=== PATIENT | female | born 1960 | race Two or more races ===

== ENCOUNTER 2020-09-17 13:14 | Outpatient (REF) | payer MEDICAID, SELFPAY ==
--- NOTE | 2020-09-17 13:25 | XR_ITS ---
EXAMINATION: XR KNEE, LEFT CLINICAL INFORMATION: Pain COMPARISON: Previous x-ray May 2017 TECHNIQUE: 2 of the left knee. FINDINGS: Bone alignment is normal. No fracture or dislocation is seen. Joint spaces are normal. There may be a joint effusion. IMPRESSION: Question joint effusion otherwise unremarkable exam.
== END 2020-09-17 13:15 | disposition home or self-care (01) ==
LOC: HO.XRAY 13:14
PROVIDERS: PCP Internal Medicine Geriatric Medicine; Visit Provider Internal Medicine Geriatric Medicine
DX: M25.562 Pain in left knee (principal)
CPT/HCPCS: 73560

== ENCOUNTER → 2020-11-05 09:08 | Outpatient (BNVA) | payer MEDICAID, SELFPAY | PROVIDERS: PCP Internal Medicine Geriatric Medicine; Referring Provider Internal Medicine Geriatric Medicine; Visit Provider Internal Medicine Gastroenterology | DX: Z76.89 Persons encountering health services in other specified circumstances (principal) ==

== ENCOUNTER → 2020-11-07 11:55 | Outpatient (BNVA) | payer MEDICAID, SELFPAY | PROVIDERS: PCP Internal Medicine Geriatric Medicine; Referring Provider Internal Medicine Geriatric Medicine; Visit Provider Internal Medicine | DX: Z76.89 Persons encountering health services in other specified circumstances (principal) ==

== ENCOUNTER 2020-11-09 12:10 | Outpatient (REF) | payer MEDICAID, SELFPAY ==
[2020-11-09 13:01] LABS: MANUAL DIFF FLAG NO
[2020-11-09 13:36] LABS: Basophils Percent Auto 0.7 % (0-2); Eosinophils Absolute Auto 0.2 X10*3/uL (0.0-0.4); Eosinophils Percent Auto 4.1 % (0-4); Hematocrit 41.4 % (37-47); Hemoglobin 12.9 g/dl (12.0-16.0); Imm Gran Abs Auto 0.02 X10*3/uL (0.00-0.03); Imm Gran Pct Auto 0.3 % (0.0-0.4); Lymphocytes Absolute Auto 1.7 X10*3/uL (1.2-4.9); Lymphocytes Percent Auto 29.4 % (20-40); Mean Corpuscular HGB Conc 31.2 g/dl (31.0-35.0); Mean Corpuscular Hemoglobin 28.1 pg (27.0-33.0); Mean Corpuscular Volume 90.2 fL (80-98); Mean Platelet Volume 10.8 fL (9.4-12.3); Monocytes Absolute Auto 0.4 X10*3/uL (0.1-1.2); Monocytes Percent Auto 7.2 % (2-11); Neutrophils Absolute Auto 3.4 X10*3/uL (2.0-8.3); Neutrophils Percent Auto 58.3 % (45-73); Platelet Count 212 X10*3/uL (160-400); Red Blood Count 4.59 X10*6/uL (4.20-5.50); Red Cell Distribution Width 13.6 % (11.0-16.0); White Blood Count 5.9 X10*3/uL (4.8-10.8)
[2020-11-09 13:40] LABS: Alanine Aminotransferase 25 U/L (0-31); Albumin Level 3.9 g/dL (3.5-5.0); Alkaline Phosphatase 93 U/L (39-117); Anion Gap 11 (12-20); Aspartate Amino Transferase 17 U/L (5-31); Bilirubin Total 0.3 mg/dL (0.0-1.0); Blood Urea Nitrogen 12 mg/dL (9-16); Calcium 8.5 mg/dL (8.4-10.2); Carbon Dioxide 28 mmol/L (22-29); Chloride 107 mmol/L (96-108); Estimated Glomerular Filt Rate > 60; Glucose Random 91 mg/dL (60-115); Potassium 4.3 mmol/l (3.3-5.1); Sodium 142 mmol/L (135-145); Total Protein 6.7 g/dL (6.5-8.0)
[2020-11-09 13:49] LABS: TSH reflex Free T4 0.61 mIU/mL (0.32-4.0)
[2020-11-09 17:57] LABS: Free T4 (Free Thyroxine) 0.97 ng/dL (0.71-1.85); Thyroid Stimulating Hormone 0.62 uIU/mL (0.32-4.0); Vitamin D 25-OH Total 24.9 ng/mL (>30)
[2020-11-14 06:58] LABS: Calcitonin <2 pg/mL (<=5)
== END 2020-11-09 12:11 | disposition home or self-care (01) ==
LOC: HO.LAB 12:10
PROVIDERS: PCP Internal Medicine Geriatric Medicine; Referring Provider Internal Medicine Gastroenterology; Visit Provider Internal Medicine
DX: E04.1 Nontoxic single thyroid nodule (principal); R10.13 Epigastric pain; E55.9 Vitamin D deficiency, unspecified
CPT/HCPCS: 36415; 80053; 82306; 82308; 84439; 84443; 85025

== ENCOUNTER → 2021-01-02 09:16 | Outpatient (BNVA) | payer MEDICAID, SELFPAY | PROVIDERS: PCP Internal Medicine Geriatric Medicine; Visit Provider Internal Medicine ==

== ENCOUNTER → 2021-03-08 09:00 | Outpatient (BNVA) | payer MEDICAID, SELFPAY | PROVIDERS: PCP Internal Medicine Geriatric Medicine; Visit Provider Internal Medicine Gastroenterology ==

== ENCOUNTER → 2021-03-25 13:08 | Outpatient (BNVA) | payer MEDICAID, SELFPAY | PROVIDERS: PCP Internal Medicine Geriatric Medicine; Visit Provider Surgery | DX: L72.0 Epidermal cyst (principal) | CPT/HCPCS: 99202 ==

== ENCOUNTER → 2021-03-26 10:45 | Outpatient (BNVA) | payer MEDICAID, SELFPAY | PROVIDERS: PCP Internal Medicine Geriatric Medicine; Visit Provider Student in an Organized Health Care Education/Training Program | DX: M79.7 Fibromyalgia (principal) | CPT/HCPCS: 99212 ==

== ENCOUNTER 2021-04-11 13:18 | Outpatient (REF) | payer MEDICAID, SELFPAY ==
[2021-04-11 13:19] VITALS: BP 119/60; PULSE 86; RESP 16; TEMP 36.4; O2SAT 100
[2021-04-11 13:21] VITALS: BMI 36.6
--- NOTE | 2021-04-11 13:46 | W.PM.OPN ---
Operative Note Operative Note Date of Service: 04/11/21 Narrative: Preop diagnosis: Epidermal inclusion, right thigh Postop diagnosis: Epidermal inclusion cyst right thigh Procedure: Excision of epidermal inclusion cyst, right thigh under local anesthesia Surgeon: Sunny Saldivar MD The patient is a 60 year female with a cystic induration on the right medial thigh consistent with an epidermal inclusion cyst. She understood the technique of excision under local anesthesia. She was aware of the risks, benefits, and alternatives She was brought to the minor procedure room and placed supine with the right thigh abducted to expose the area. The area of the cyst was prepped and draped. Lidocaine 1% was used for local anesthesia. An elliptical incision was made in the skin overlying this cystic induration using a blade 15. This was carried down through the full-thickness of the skin and subcutaneous fat to excise the entire cystic induration. There was note of a cystic capsule that well well defined. The cyst itself measured about 2 cm in diameter After complete excision, I closed the incision with full-thickness nylon 3-0 interrupted sutures. Dressings were applied The patient tolerated procedure well. There were no complications. Estimated blood loss was about 2 cc The patient was given discharge instructions.
--- NOTE | 2021-04-11 13:49 | MHC.SHP ---
Pre-Procedural Eval Section B Chief Complaint: Epidermal Cyst Allergies: Allergies Allergy/AdvReac Type Severity Reaction Status Date / Time ibuprofen [From MOTRIN] Allergy Severe SWELLING Verified 03/26/21 10:54 prednisone [PREDNISONE] Allergy Severe ANAPHYLAXIS Verified 03/26/21 10:54 aspirin [ASPIRIN] Allergy Intermediate SWELLING, Verified 03/26/21 10:54 anaphylaxis cortisone [CORTISONE] Allergy Intermediate SHAKING,HTN Verified 03/26/21 10:54 codeine Allergy Unknown anaphylaxis Verified 03/26/21 10:54 iodine Allergy Unknown anaphylaxis Verified 03/26/21 10:54 Plan I have reviewed the history and physical and performed a pertinent physical examination on my patient. No changes have occurred unless specified.
[2021-04-11 13:53] VITALS: BP 108/82; PULSE 72; RESP 16; O2SAT 98
== END 2021-04-11 13:19 | disposition home or self-care (01) ==
LOC: HO.MS 13:18
PROVIDERS: PCP Internal Medicine Geriatric Medicine; Visit Provider Surgery
PROC: (CPT 11402; principal; 2021-04-11 14:00)
DX: L72.0 Epidermal cyst (principal); M79.7 Fibromyalgia; E55.9 Vitamin D deficiency, unspecified; F17.210 Nicotine dependence, cigarettes, uncomplicated; Z79.899 Other long term (current) drug therapy; Z88.8 Allergy status to other drugs, medicaments and biological substances
CPT/HCPCS: 11402; 88304

== ENCOUNTER → 2021-04-22 09:58 | Outpatient (BNVA) | payer MEDICAID, SELFPAY | PROVIDERS: PCP Internal Medicine Geriatric Medicine; Visit Provider Surgery | DX: Z48.817 Encounter for surgical aftercare following surgery on the skin and subcutaneous tissue (principal); Z87.2 Personal history of diseases of the skin and subcutaneous tissue | CPT/HCPCS: 99212 ==

== ENCOUNTER 2021-04-26 09:43 | Outpatient (REF) | payer MEDICAID, SELFPAY ==
[2021-04-26 11:04] LABS: MANUAL DIFF FLAG NO
[2021-04-26 11:10] LABS: Basophils Percent Auto 0.7 % (0-2); Eosinophils Absolute Auto 0.1 X10*3/uL (0.0-0.4); Eosinophils Percent Auto 1.6 % (0-4); Hematocrit 41.6 % (37-47); Hemoglobin 13.2 g/dl (12.0-16.0); Imm Gran Abs Auto 0.02 X10*3/uL (0.00-0.03); Imm Gran Pct Auto 0.4 % (0.0-0.4); Lymphocytes Absolute Auto 1.5 X10*3/uL (1.2-4.9); Lymphocytes Percent Auto 26.6 % (20-40); Mean Corpuscular HGB Conc 31.7 g/dl (31.0-35.0); Mean Corpuscular Hemoglobin 28.3 pg (27.0-33.0); Mean Corpuscular Volume 89.1 fL (80-98); Mean Platelet Volume 10.5 fL (9.4-12.3); Monocytes Absolute Auto 0.4 X10*3/uL (0.1-1.2); Monocytes Percent Auto 6.6 % (2-11); Neutrophils Absolute Auto 3.5 X10*3/uL (2.0-8.3); Neutrophils Percent Auto 64.1 % (45-73); Platelet Count 209 X10*3/uL (160-400); Red Blood Count 4.67 X10*6/uL (4.20-5.50); Red Cell Distribution Width 13.7 % (11.0-16.0); White Blood Count 5.5 X10*3/uL (4.8-10.8)
[2021-04-26 12:06] LABS: Alanine Aminotransferase 27 U/L (0-31); Alkaline Phosphatase 94 U/L (39-117); Anion Gap 13 (12-20); Aspartate Amino Transferase 18 U/L (5-31); Bilirubin Total 0.3 mg/dL (0.0-1.0); Blood Urea Nitrogen 11 mg/dL (9-16); C Reactive Protein 1.06 mg/dL (< or = 0.50); Calcium 9.2 mg/dL (8.4-10.2); Carbon Dioxide 23 mmol/L (22-29); Chloride 108 mmol/L (96-108); Estimated Glomerular Filt Rate > 60; Glucose Random 92 mg/dL (60-115); Potassium 4.3 mmol/L (3.3-5.1); Sodium 140 mmol/L (135-145); Total Protein 6.9 g/dL (6.5-8.0)
[2021-04-26 12:27] LABS: Folate 5.3 ng/mL (> or = 4.0); Vitamin B12 454 pg/mL (200-900)
[2021-04-26 12:44] LABS: Vitamin D 25-OH Total 26.7 ng/mL (>30)
[2021-04-30 14:22] LABS: Vitamin K1 219 pg/mL (130-1500)
[2021-04-30 23:36] LABS: Histamine Plasma <1.5 ng/mL (< OR = 1.8)
[2021-05-01 01:37] LABS: Zinc 72 mcg/dL (60-130)
[2021-05-01 12:27] LABS: Beta-Gamma Tocopherol <1.0 mg/L (<=4.3)
[2021-05-01 14:27] LABS: Vitamin B5 (Pantothenic Acid) <40 ng/mL (<275)
[2021-05-01 20:52] LABS: Vitamin A 34 mcg/dL (38-98)
[2021-05-02 19:51] LABS: Vitamin C 0.8 mg/dL (0.3-2.7)
[2021-05-03 12:06] LABS: Nicotinamide 24 ng/mL; Vit B3 - Nicotinic Acid <20 ng/mL; Vitamin B6 3.6 ng/mL (2.1-21.7)
[2021-05-03 17:21] LABS: Trypsin 275.4 ng/mL (180.5-885.3)
== END 2021-04-26 09:44 | disposition home or self-care (01) ==
LOC: HO.LAB 09:43
PROVIDERS: PCP Internal Medicine Geriatric Medicine; Visit Provider Internal Medicine Gastroenterology
DX: G89.29 Other chronic pain (principal); R10.11 Right upper quadrant pain; K75.81 Nonalcoholic steatohepatitis (NASH)
CPT/HCPCS: 36415; 80053; 82180; 82306; 82607; 82746; 82785; 83088; 83519; 84207; 84446; 84590; 84591; 84597; 84630; 85025; 86003; 86140; 99212

== ENCOUNTER 2021-06-05 08:50 | Day surgery (SDC) | payer MEDICAID, SELFPAY ==
[2021-05-29 13:53] VITALS: BMI 36.6
--- NOTE | 2021-06-04 10:11 | P.CONAN_ITS ---
Documented by User: Anna Martines 06/04/21 10:12 HPI - Anesthesia Eval Consult details Narrative: 60yo F for Colonoscopy chronic prn opioids PMFSH Active Problems Active Problems: All Active Problems (Updated 05/29/21 @ 13:50 by Izzy Arenas) Thyroid cyst (Acute) Epigastric abdominal pain (Acute) Chronic RUQ pain (Acute) Fibromyalgia (Acute) Epidermal cyst (Acute) Vitamin D deficiency (Acute) Thyroid nodule (Acute) Past Medical History Medical History (Updated 05/29/21 @ 13:50 by Izzy Arenas) Asthma Depression Epidermal cyst Fibromyalgia GERD (gastroesophageal reflux disease) History of fatty infiltration of liver History of panic attacks Hx of migraine headaches Thyroid nodule Vitamin D deficiency Family History Family History Father No problems noted. Mother Ovarian cancer Sister Thyroid nodule Hypothyroidism Sister Hypothyroidism Thyroid nodule Brother Cancer of unknown origin Surgical History Surgical History (Updated 05/29/21 @ 13:52 by Izzy Arenas) H/O shoulder surgery History of back surgery History of colonoscopy History of esophagogastroduodenoscopy (EGD) History of removal of cyst Hx laparoscopic cholecystectomy Hx of dilation and curettage Hx of tubal ligation Social History Social History Household Members: Family Alcohol intake: never Patient Tobacco Use Status: Current everyday Tobacco user Tobacco use type: Cigarette Cigarette Packs Per Day: 1 Cigarettes Per Day: 20.0 Years Smoked: 15 Are you DNR?: No Advance Directives Information Provided: No Recently lost weight without trying: No Eating poorly because of decreased appetite: No Nutrition Risks: No Nutritional Risk Meds Allergies Allergy/AdvReac Type Severity Reaction Status Date / Time codeine Allergy Severe anaphylaxis Verified 05/29/21 13:45 ibuprofen [From MOTRIN] Allergy Severe SWELLING Verified 04/26/21 09:51 iodine Allergy Severe anaphylaxis Verified 05/29/21 13:45 prednisone [PREDNISONE] Allergy Severe ANAPHYLAXIS Verified 04/26/21 09:51 aspirin [ASPIRIN] Allergy Intermediate SWELLING, Verified 04/26/21 09:51 anaphylaxis cortisone [CORTISONE] Allergy Intermediate SHAKING,HTN Verified 04/26/21 09:51 Home Medications Medication Instructions Recorded Confirmed Last Taken Type albuterol sulfate 90 mcg/actuation 2 puff INHALATION Q6H PRN 11/07/20 04/22/21 Unknown History aerosol inhaler albuterol sulfate 90 mcg/actuation 2 puff INHALATION Q6H PRN 11/07/20 05/29/21 Unknown History aerosol inhaler mziiqgioup-khvwmmuicjimi-yhdoudqs 1 cap PO Q8H PRN 11/07/20 05/29/21 Unknown History 50 mg-300 mg-40 mg capsule clonazepam 0.5 mg tablet 0.5 mg PO DAILY 11/07/20 05/29/21 Unknown History docusate sodium 100 mg capsule 100 mg PO DAILY 11/07/20 05/29/21 Unknown History enalapril maleate 10 mg tablet 10 mg PO DAILY 11/07/20 05/29/21 Unknown History oxycodone 5 mg tablet 5 mg PO Q8H PRN 11/07/20 05/29/21 Unknown History venlafaxine 150 mg tablet,extended 150 mg PO DAILY 11/07/20 05/29/21 Unknown History release 24 hr diphenhydramine HCl 50 mg capsule 50 mg PO BEDTIME 01/02/21 05/29/21 Unknown History epinephrine 0.3 mg/0.3 mL 0.3 mg IM Q10M PRN 01/02/21 05/29/21 Unknown History injection, auto-injector meclizine 25 mg tablet 25 mg PO DAILY 01/02/21 05/29/21 Unknown History Exam Exam Date and Time: June 04, 2021 1011 Height,Weight and Vital Signs: Height 5 ft 2 in Weight 90.718 kg Assessment and Plan Assessment Anesthesia Assessment: Chart Reviewed Documented by User: Domitila Baptiste 06/05/21 09:10 [facility] Past Medical History Medical History (Updated 05/29/21 @ 13:50 by Izzy Arenas) Asthma Depression Epidermal cyst Fibromyalgia GERD (gastroesophageal reflux disease) History of fatty infiltration of liver History of panic attacks Hx of migraine headaches Thyroid nodule Vitamin D deficiency Family History Family History Father No problems noted. Mother Ovarian cancer Sister Thyroid nodule Hypothyroidism Sister Hypothyroidism Thyroid nodule Brother Cancer of unknown origin Surgical History Surgical History (Updated 05/29/21 @ 13:52 by Izzy Arenas) H/O shoulder surgery History of back surgery History of colonoscopy History of esophagogastroduodenoscopy (EGD) History of removal of cyst Hx laparoscopic cholecystectomy Hx of dilation and curettage Hx of tubal ligation Social History Social History Household Members: Family Alcohol intake: never Patient Tobacco Use Status: Current everyday Tobacco user Tobacco use type: Cigarette Cigarette Packs Per Day: 1 Cigarettes Per Day: 20.0 Years Smoked: 15 Are you DNR?: No Advance Directives Information Provided: No Recently lost weight without trying: No Eating poorly because of decreased appetite: No Nutrition Risks: No Nutritional Risk Meds Allergies Allergy/AdvReac Type Severity Reaction Status Date / Time codeine Allergy Severe anaphylaxis Verified 05/29/21 13:45 ibuprofen [From MOTRIN] Allergy Severe SWELLING Verified 04/26/21 09:51 iodine Allergy Severe anaphylaxis Verified 05/29/21 13:45 prednisone [PREDNISONE] Allergy Severe ANAPHYLAXIS Verified 04/26/21 09:51 aspirin [ASPIRIN] Allergy Intermediate SWELLING, Verified 04/26/21 09:51 anaphylaxis cortisone [CORTISONE] Allergy Intermediate SHAKING,HTN Verified 04/26/21 09:51 Home Medications Medication Instructions Recorded Confirmed Last Taken Type albuterol sulfate 90 mcg/actuation 2 puff INHALATION Q6H PRN 11/07/20 04/22/21 Unknown History aerosol inhaler albuterol sulfate 90 mcg/actuation 2 puff INHALATION Q6H PRN 11/07/20 05/29/21 Unknown History aerosol inhaler xoaitrjkst-ehomiechglybu-dylztalq 1 cap PO Q8H PRN 11/07/20 05/29/21 Unknown History 50 mg-300 mg-40 mg capsule clonazepam 0.5 mg tablet 0.5 mg PO DAILY 11/07/20 05/29/21 Unknown History docusate sodium 100 mg capsule 100 mg PO DAILY 11/07/20 05/29/21 Unknown History enalapril maleate 10 mg tablet 10 mg PO DAILY 11/07/20 05/29/21 Unknown History oxycodone 5 mg tablet 5 mg PO Q8H PRN 11/07/20 05/29/21 Unknown History venlafaxine 150 mg tablet,extended 150 mg PO DAILY 11/07/20 05/29/21 Unknown History release 24 hr diphenhydramine HCl 50 mg capsule 50 mg PO BEDTIME 01/02/21 05/29/21 Unknown History epinephrine 0.3 mg/0.3 mL 0.3 mg IM Q10M PRN 01/02/21 05/29/21 Unknown History injection, auto-injector meclizine 25 mg tablet 25 mg PO DAILY 01/02/21 05/29/21 Unknown History Exam Airway Mallampati Class: II TM Dist: >3cm Neck ROM: Full Denture: Upper Heart: rrr Lungs: cta Assessment and Plan Assessment Anesthesia Assessment: Anesthesia Plan Discussed and Chart Reviewed Final Anesthetic Review NPO: Yes ASA Class: II Final Preanesthetic Review: No Changes in Pt Med Stat and Consent Obtained/Reviewed Patient Risk: Intermediate Procedure Risk: Intermediate Anesthetic Plan Anesthetic Plan: MAC: Disposition: Standard PACU
--- NOTE | 2021-06-05 09:01 | MHC.SHP ---
Pre-Procedural Eval Section A Date of Service: 06/05/21 Section B Chief Complaint: chronic RUQ pain Relevant Family History (Specify if Yes): No Relevant Social History: Tobacco Use Present Medications: see Short Stay Collaborative assessment Medical History: Significant History (Asthma Depression Epidermal cyst Fibromyalgia GERD (gastroesophageal reflux disease) History of fatty infiltration of liver History of panic attacks Hx of migraine headaches Thyroid nodule Vitamin D deficiency) History of Previous Operations: Relevant previous surgery/procedure and date(s) (H/O shoulder surgery History of back surgery History of colonoscopy History of esophagogastroduodenoscopy (EGD) History of removal of cyst Hx laparoscopic cholecystectomy Hx of dilation and curettage Hx of tubal ligation) Allergies: Allergies Allergy/AdvReac Type Severity Reaction Status Date / Time codeine Allergy Severe anaphylaxis Verified 05/29/21 13:45 ibuprofen [From MOTRIN] Allergy Severe SWELLING Verified 04/26/21 09:51 iodine Allergy Severe anaphylaxis Verified 05/29/21 13:45 prednisone [PREDNISONE] Allergy Severe ANAPHYLAXIS Verified 04/26/21 09:51 aspirin [ASPIRIN] Allergy Intermediate SWELLING, Verified 04/26/21 09:51 anaphylaxis cortisone [CORTISONE] Allergy Intermediate SHAKING,HTN Verified 04/26/21 09:51 Review of Systems Sugical H&P ROS: Negative: Constitution, Cardiovascular, Respiratory, Neurological, Psychiatric, Hem-Onc, Allergic/Immunologic, Gastrointestinal, Genitourinary, Musculoskeletal, Integumentary, Endocrine and Eyes/Ears/Nose/Throat Exam Surgical H&P Exam: Normal: HEENT, Normal: Heart, Normal: Lungs, Normal: Extremities, Normal: Abdomen, Normal: Skin and Normal: Neurological Plan Diagnosis/Plan: Unchanged I have reviewed the history and physical and performed a pertinent physical examination on my patient. No changes have occurred unless specified.
[2021-06-05] MEDS: Lactated Ringers 1,000 ML 100 ML IVCONT (09:45)
--- NOTE | 2021-06-05 10:04 | P.BOP_ITS ---
Brief Operative Note Date of Service: 06/05/21 Pre-op diagnosis: abdominal pain Post-op diagnosis: same Procedure: see op note Surgeon: Tamica Sherman MD Anesthesia: MAC Was an Chair Post Machine Operator used for this Procedure?: No Estimated blood loss (mL): 0 Condition: stable Disposition: PACU
--- NOTE | 2021-06-05 10:04 | W.PM.OPN ---
Operative Note Operative Note Date of Service: 06/05/21 Narrative: Operative Information Procedure Description: Colonoscopy COLONOSCOPY Instrument: Olympus variable stiffness pediatric scope 190L Colonoscopy Monitoring: Vital signs and clinical assessment, continuous EKG monitoring, Pulse oximetry, Carbon Dioxide monitoring and blood pressure monitoring were done throughout the procedure. Colon withdrawal time was [] minutes. Procedure: The patient was placed in the left lateral decubitis position and pre-procedure medications were administered. After a digital rectal examination of the ano-rectum, the video colonoscope was inserted into the rectum and advanced through the colon to the cecum/TI. The colonoscope was slowly withdrawn in a retrograde panoramic fashion and the colon mucosa was carefully examined including a retroflexed view of the rectum. Findings and interventions are described below. Procedure Difficulty: easy Findings: melanosis coli noted Terminal Ileum-normal Cecum:normal Ascending Colon: normal Transverse Colon -normal Descending Colon:normal Sigmoid Colon: normal Rectum: Retroflexion with small internal hemorrhoids, grade I Bx taken from TI and random colon Anorectum - normal Colon preparation: [place] Bowel Preparation Scale Right colon; 2 Transverse colon: 3 Left colon; 3 (0 = Unprepared colon segment with mucosa not seen due to solid stool that cannot be cleared. 1 = Portion of mucosa of the colon segment seen, but other areas of the colon segment not well seen due to staining, residual stool and/or opaque liquid. 2 = Minor amount of residual staining, small fragments of stool and/or opaque liquid, but mucosa of colon segment seen well. 3 = Entire mucosa of colon segment seen well with no residual staining, small fragments of stool or opaque liquid) Impression and Post Procedure Diagnosis: melanosis coli internal hemorrhoids Plan: High fiber diet leaflet Avoid straining at stool, epsom salts and sitz bath, anusol supps or cream Repeat Colonoscopy in 10 years or earlier if clinically indicated review history, if any hx of pain worse with constipation or relieved by passing gas or stool may need to come up with good laxative regimen Above findings were reviewed with the patient and relevant handouts were provided if indicated.
[2021-06-05 10:10] VITALS: BP 101/64; PULSE 82; RESP 12; TEMP 36.3; O2SAT 98
[2021-06-05 10:25] VITALS: BP 119/62; PULSE 72; RESP 16; TEMP 36.1; O2SAT 100
== END 2021-06-05 11:32 | disposition home or self-care (01) ==
PROVIDERS: PCP Internal Medicine Geriatric Medicine; Visit Provider Internal Medicine Gastroenterology
PROC: 0DJD8ZZ Inspection of Lower Intestinal Tract, Via Natural or Artificial Opening Endoscopic (ICD-10-PCS; CPT 45378; principal; 2021-06-05 09:10)
DX: R10.11 Right upper quadrant pain (principal); G89.29 Other chronic pain; K63.89 Other specified diseases of intestine; K64.0 First degree hemorrhoids; J45.909 Unspecified asthma, uncomplicated; K21.9 Gastro-esophageal reflux disease without esophagitis; F32.9 Major depressive disorder, single episode, unspecified; E55.9 Vitamin D deficiency, unspecified; Z90.49 Acquired absence of other specified parts of digestive tract; Z79.899 Other long term (current) drug therapy; Z88.8 Allergy status to other drugs, medicaments and biological substances; Z87.891 Personal history of nicotine dependence
CPT/HCPCS: 45380; 88305

== ENCOUNTER → 2021-06-28 10:29 | Outpatient (BNVA) | payer MEDICAID, SELFPAY | PROVIDERS: PCP Internal Medicine Geriatric Medicine; Visit Provider Internal Medicine Gastroenterology ==

== ENCOUNTER → 2021-07-08 13:47 | Outpatient (BNVA) | payer MEDICAID, SELFPAY | PROVIDERS: PCP Internal Medicine Geriatric Medicine; Visit Provider Internal Medicine ==

== ENCOUNTER 2021-07-29 12:31 | Outpatient (REF) | payer MEDICAID, SELFPAY ==
--- NOTE | ~2021-07-29 | MM_ITS ---
EXAMINATION: MM SCREENING DIGITAL BREAST TOMOSYNTHESIS, BILATERAL CLINICAL INFORMATION: Screening. Asymptomatic. The lifetime risk of breast cancer based on the Tyrer-Cuzick Model is 5%. COMPARISON: Mammography: 10/12/2018, 09/14/2017, 08/06/2016 TECHNIQUE: Digital breast tomosynthesis is performed in both the craniocaudal and mediolateral oblique views along with computer-aided detection (CAD). Synthesized 2D images are generated from the tomosynthesis. Additional exaggerated right CC view is provided. FINDINGS: There are scattered areas of fibroglandular density (ACR BI-RADS breast composition Category b). Parenchymal pattern is similar to prior exam. There are small scattered asymmetries. There is small stable nodularity central outer right breast. There is no developing density. No architectural abnormality. No suspicious calcifications. The axilla and skin contours are unremarkable. No significant changes. MM/MM tomosynthesis screening BI IMPRESSION: No significant changes from prior exams. ASSESSMENT: BI-RADS 2: Benign RECOMMENDATION: Routine annual mammography screening. This patient's information was entered into a reminder system with a target due date for their next mammogram.
== END 2021-07-29 12:32 | disposition home or self-care (01) ==
LOC: HO.MAMMO 12:31
PROVIDERS: Visit Provider Internal Medicine Geriatric Medicine
DX: Z12.31 Encounter for screening mammogram for malignant neoplasm of breast (principal)
CPT/HCPCS: 77063; 77067

== ENCOUNTER 2021-08-09 15:41 | Outpatient (REF) | payer MEDICAID, SELFPAY ==
--- NOTE | ~2021-08-09 | US_ITS ---
EXAMINATION: US THYROID CLINICAL INFORMATION: Nontoxic single thyroid nodule. COMPARISON: Ultrasound soft tissue head/neck thyroid dated 06/27/2020 and 09/25/2016. TECHNIQUE: Linear transducer grayscale and color Doppler examination with attention to the region of the thyroid. FINDINGS: SIZE: Measurements of the thyroid lobes and nodules are given in sagittal, anteroposterior and transverse dimensions respectively. Right Thyroid Lobe: 5.0 x 1.6 x 1.4 cm, volume 5.6 mL. Previously 4.8 x 1.7 x 1.4 cm, volume 6.0 mL. Parenchyma: The gland echotexture is homogeneous. Thyroid vascularity is normal. Left Thyroid Lobe: 4.5 x 1.1 x 1.3 cm, volume 3.4 mL. Previously 3.9 x 1.1 x 1.4 cm, volume 3.1 mL. Parenchyma: The gland echotexture is homogeneous. Thyroid vascularity is normal. Isthmus: 0.3 cm in maximum AP dimension. Previously 0.2 cm. No focal thyroid nodule is seen. NODES: No lymphadenopathy is seen in the tissue surrounding the thyroid gland. US/US thyroid IMPRESSION: Normal ultrasound thyroid gland. Previously visualized right thyroid nodule is not seen at this time. ACR TI-RADS RECOMMENDATION REFERENCE: Ultrasound-guided fine-needle aspiration, followup ultrasound, no further follow up. * TR1 (0 point) and TR 2 (2 points): No FNA or follow up * TR3 (3 points): FNA if more than or equal to 2.5 cm in maximum dimension, followup ultrasound in 1, 3 and 5 years if 1.5 to 2.4 cm in maximum dimension. * TR4 (4-6 points): FNA if more than or equal to 1.5 cm in maximum dimension, followup ultrasound in 1, 2, 3 and 5 years if 1 to 1.4 cm in maximum dimension. * TR5 (more than or equal to 7 points): FNA if more than or equal to 1 cm in maximum dimension, followup ultrasound every year for 5 years if 0.5 to 0.9 cm in maximum dimension. * TR3, TR4 or TR5 nodules that are below the size threshold for follow up receive no follow up.
== END 2021-08-09 15:42 | disposition home or self-care (01) ==
LOC: HO.US 15:41
PROVIDERS: Visit Provider Internal Medicine
DX: E04.1 Nontoxic single thyroid nodule (principal)
CPT/HCPCS: 76536

== ENCOUNTER → 2021-12-05 09:21 | Outpatient (BNVA) | payer MEDICAID, SELFPAY | PROVIDERS: PCP Internal Medicine Geriatric Medicine; Referring Provider Internal Medicine Geriatric Medicine; Visit Provider Surgery | DX: K46.9 Unspecified abdominal hernia without obstruction or gangrene (principal) | CPT/HCPCS: 99212 ==

== ENCOUNTER 2021-12-10 15:05 | Outpatient (REF) | payer MEDICAID, SELFPAY ==
--- NOTE | ~2021-12-10 | CT_ITS ---
EXAMINATION: CT ABDOMEN AND PELVIS WITHOUT CONTRAST CLINICAL INFORMATION: Abdominal hernia without obstruction COMPARISON: Previous CT of the abdomen and pelvis August 2015 TECHNIQUE: Multidetector volumetric imaging was performed from the superior aspect of the liver through the pubic symphysis. Sagittal and coronal reformatted images were obtained on the technologist's workstation. This CT examination was performed using dose optimization techniques as appropriate, variously including the following: *Automated exposure control *Adjustment of mA and/or kV according to patient size (this includes techniques or standardized protocols for targeted exams where dose is matched to indication/reason for exam; i.e. extremities or head) *Use of iterative reconstruction technique DLP: 566 mGy-cm FINDINGS: LUNG BASES: The visualized lung bases are unremarkable. LIVER, GALLBLADDER, AND BILIARY TREE: The liver is normal in size, shape, and attenuation. No focal hepatic lesion or biliary ductal dilatation is present. The gallbladder has been removed. PANCREAS: Unremarkable. SPLEEN: Unremarkable. ADRENAL GLANDS: Unremarkable. KIDNEYS AND URETERS: The kidneys are normal in size, shape, and attenuation. No hydronephrosis, hydroureter, or calculi seen. No perinephric stranding. BLADDER: Unremarkable. GASTROINTESTINAL TRACT: The small and large bowel are unremarkable. The appendix is unremarkable. ABDOMINAL WALL: There is a small umbilical hernia containing fat. There are postsurgical changes to the anterior abdominal abdominal wall. LYMPH NODES: Normal. VASCULAR: Unremarkable. PELVIC VISCERA: There is a pessary in the pelvis. The uterus and adnexa are unremarkable. OSSEOUS STRUCTURES: There are postsurgical changes at the L4-L5 and L5-S1 disc spaces. CT/CT abdomen pelvis wo con IMPRESSION: Small umbilical hernia containing fat. Fleischner guidelines were followed.
== END 2021-12-10 15:06 | disposition home or self-care (01) ==
LOC: HO.CT 15:05
PROVIDERS: PCP Internal Medicine Geriatric Medicine; Visit Provider Surgery
DX: K46.9 Unspecified abdominal hernia without obstruction or gangrene (principal)
CPT/HCPCS: 74176

== ENCOUNTER → 2021-12-23 14:27 | Outpatient (BNVA) | payer MEDICAID, SELFPAY | PROVIDERS: PCP Internal Medicine Geriatric Medicine; Referring Provider Internal Medicine Geriatric Medicine; Visit Provider Surgery | DX: L76.82 Other postprocedural complications of skin and subcutaneous tissue (principal) | CPT/HCPCS: 99212 ==

== ENCOUNTER → 2022-01-13 13:43 | Outpatient (BNVA) | payer MEDICAID, SELFPAY | PROVIDERS: PCP Internal Medicine Geriatric Medicine; Visit Provider Internal Medicine ==

== ENCOUNTER → 2022-04-15 12:54 | Outpatient (BNVA) | payer MEDICAID, SELFPAY | PROVIDERS: PCP Internal Medicine Geriatric Medicine; Visit Provider Nurse Practitioner Family | DX: M79.7 Fibromyalgia (principal) | CPT/HCPCS: 99212 ==

== ENCOUNTER 2022-08-14 12:35 | Outpatient (REF) | payer MEDICAID, SELFPAY ==
--- NOTE | ~2022-08-14 | MM_ITS ---
EXAMINATION: MM SCREENING DIGITAL BREAST TOMOSYNTHESIS, BILATERAL CLINICAL INFORMATION: Screening. Asymptomatic. The lifetime risk of breast cancer based on the Tyrer-Cuzick Model is 5%. COMPARISON: Mammography: 07/29/2021, 10/12/2018, 09/14/2017 TECHNIQUE: Digital breast tomosynthesis is performed in both the craniocaudal and mediolateral oblique views along with computer-aided detection (CAD). Synthesized 2D images are generated from the tomosynthesis. FINDINGS: There are scattered areas of fibroglandular density (ACR BI-RADS breast composition Category b). There are no significant masses, abnormal calcifications, or other abnormalities. There are regional random distributed round calcifications upper outer right breast. The axilla and skin contours are unremarkable. MM/MM tomosynthesis screening BI IMPRESSION: No mammographic evidence of malignancy. ASSESSMENT: BI-RADS 2: Benign RECOMMENDATION: Routine annual mammography screening. This patient's information was entered into a reminder system with a target due date for their next mammogram.
--- NOTE | ~2022-08-14 | MM_ITS ---
EXAMINATION: BONE DENSITOMETRY CLINICAL INDICATION: Menopause. COMPARISON: CT abdomen and pelvis 12/10/2021. No prior bone density exam. TECHNIQUE: Using a [employer] DXA System (software version: 13.1) manufactured by [employer], dual-energy x-ray absorptiometry was performed of the lumbar spine and left hip. The images are of good technical quality. Summary results are attached. FINDINGS: AP SPINE L1-L3 (excluding L4): The data of L1-L4 has been changed to exclude the L4 vertebral body, because hardware at this level may cause overestimation of lumbar spine density. BMD 1.201 g/cm2, Z-score 0.6, T-score 0.3, normal. LEFT FEMUR, NECK: BMD 0.743 g/cm2, Z-score -1.4, T-score -2.1, osteopenia. LEFT FEMUR, TOTAL: BMD 0.903 g/cm2, Z-score -0.5, T-score -0.8, normal. IDENTIFIED RISK FACTORS: Menopause, hyperthyroid, rheumatoid arthritis, secondary osteoporosis. HISTORY OF FRACTURE: None listed. MEDICATIONS: Calcium, vitamin D. MM/XR DEXA axial skeleton IMPRESSION: 1. DIAGNOSIS: Osteopenia based on the lowest T-score value of -2.1 in the femoral neck applying World Health Organization criteria. 2. 10-YEAR FRACTURE RISK PREDICTION, FRAX: Major osteoporotic fracture (clinical spine, forearm, hip or shoulder) 6.6%. Hip fracture 1.0%. 3. Treatment Recommendations: NOF guidelines recommend consideration for treatment in postmenopausal women and men age 50 and older presenting with the following: -A hip or vertebral (clinical or morphometric) fracture. -T-score less than or equal to -2.5 at the femoral neck or spine after appropriate evaluation to exclude secondary causes. -Low bone mass at the hip or spine and a 10-year fracture probability by FRAX of greater than or equal to 3% for hip fracture or greater than or equal to 20% for major osteoporotic fracture based on the [place] adapted WHO algorithm. 4. Other Recommendations: All treatment decisions require clinical judgment and consideration of individual patient factors, including patient preferences, comorbidities, previous drug use, risk factors not captured in the FRAX model (e.g. frailty, falls, vitamin D deficiency, increased bone turnover, interval significant decline in bone density) and possible under or overestimation of fracture risk by FRAX. Additional medical evaluation for secondary cause of low bone mineral density may be appropriate. FUTURE SCAN RECOMMENDATION: People with diagnosed cases of osteoporosis or at high risk for fracture should have regular bone mineral density tests. For patients eligible for Medicare, routine testing is allowed once every 2 years. The testing frequency can be increased to one year for patients who have rapidly progressing disease, those who are receiving or discontinuing medical therapy to restore bone mass, or have additional risk factors.
== END 2022-08-14 12:36 | disposition home or self-care (01) ==
LOC: HO.MAMMO 12:35
PROVIDERS: PCP Internal Medicine Geriatric Medicine; Visit Provider Advanced Practice Midwife
DX: Z12.31 Encounter for screening mammogram for malignant neoplasm of breast (principal); Z13.820 Encounter for screening for osteoporosis; Z78.0 Asymptomatic menopausal state
CPT/HCPCS: 77063; 77067; 77080

== ENCOUNTER 2023-01-05 09:09 | Outpatient (REF) | payer MEDICAID, SELFPAY ==
[2023-01-05 11:51] LABS: MANUAL DIFF FLAG NO
[2023-01-05 12:31] LABS: Basophils Absolute Auto 0.1 X10*3/uL (0.0-0.2); Basophils Percent Auto 0.7 % (0-2); Eosinophils Absolute Auto 0.3 X10*3/uL (0.0-0.4); Eosinophils Percent Auto 3.8 % (0-4); Hematocrit 40.9 % (37.0-47.0); Hemoglobin 13.2 g/dl (12.0-16.0); Imm Gran Abs Auto 0.03 X10*3/uL (0.00-0.03); Imm Gran Pct Auto 0.4 % (0.0-0.4); Lymphocytes Percent Auto 29.6 % (20-40); Mean Corpuscular HGB Conc 32.3 g/dl (31.0-35.0); Mean Corpuscular Hemoglobin 28.5 pg (27.0-33.0); Mean Corpuscular Volume 88.3 fL (80.0-98.0); Mean Platelet Volume 10.6 fL (9.4-12.3); Monocytes Absolute Auto 0.5 X10*3/uL (0.1-1.2); Monocytes Percent Auto 7.3 % (2-11); Neutrophils Percent Auto 58.2 % (45-73); Platelet Count 216 X10*3/uL (160-400); Red Blood Count 4.63 X10*6/uL (4.20-5.50); Red Cell Distribution Width 13.3 % (11.0-16.0); White Blood Count 6.8 X10*3/uL (4.8-10.8)
[2023-01-05 13:04] LABS: Alanine Aminotransferase 22 U/L (0-31); Alkaline Phosphatase 93 U/L (39-117); Anion Gap 14 (12-20); Aspartate Amino Transferase 19 U/L (5-31); Bilirubin Total 0.3 mg/dL (0.0-1.0); Blood Urea Nitrogen 18 mg/dL (9-16); C Reactive Protein 1.12 mg/dL (< or = 0.50); Calcium 9.7 mg/dL (8.4-10.2); Carbon Dioxide 25 mmol/L (22-29); Chloride 107 mmol/L (96-108); Estimated Glomerular Filt Rate > 60; Glucose Random 83 mg/dL (60-115); Potassium 4.2 mmol/L (3.3-5.1); Sodium 142 mmol/L (135-145); Total Protein 6.7 g/dL (6.5-8.0)
[2023-01-05 13:14] LABS: Ferritin 110 ng/mL (10-250)
[2023-01-07 21:59] LABS: Transglutaminase Ab IgG <1.0 U/mL; Transglutaminase IgA 2.3 U/mL
== END 2023-01-05 09:10 | disposition home or self-care (01) ==
LOC: HO.LAB 09:09
PROVIDERS: PCP Internal Medicine Geriatric Medicine; Visit Provider Internal Medicine Gastroenterology
DX: R10.11 Right upper quadrant pain (principal); R10.33 Periumbilical pain; G89.29 Other chronic pain; K75.81 Nonalcoholic steatohepatitis (NASH)
CPT/HCPCS: 36415; 80053; 82728; 85025; 86140; 86364; 99212

== ENCOUNTER 2023-02-19 07:26 | Outpatient (REF) | payer MEDICAID, SELFPAY ==
--- NOTE | ~2023-02-19 | US_ITS ---
EXAMINATION: US COMPLETE ABDOMEN WITH LIVER ELASTOGRAPHY CLINICAL INFORMATION: Right upper quadrant pain, fatty liver. COMPARISON: None available. TECHNIQUE: Real-time imaging of the abdominal viscera. Noninvasive ultrasound liver fibrosis assessment is performed using Edith ElastPQ point quantification shear wave elastography (2D-SWE) with a C5-2 MHz transducer. Multiple elastography samples are obtained. FINDINGS: PANCREAS: Normal. The visualized pancreatic head and body are normal in appearance. The remainder of the pancreas is obscured from visualization by the overlying bowel gas. ABDOMINAL AORTA: The proximal, middle, and distal aortic segments are normal in caliber. INFERIOR VENA CAVA: Visualized portions are normal. LIVER: Normal. The liver demonstrates normal size, contour and increased echogenicity. No focal lesion or intrahepatic biliary duct dilatation. The right lobe measures 15.8 cm in length. The left lobe measures 12.6 cm in length. Portal flow is hepatopedal. Shear wave liver elastography median stiffness is 1.41 m/s (reference: normal median stiffness is 1.3 m/s or less). IQR/median stiffness to assess sampling precision is 0.08 (reference: good quality data set is IQR/median stiffness of 0.15 or less). GALLBLADDER: Gallbladder has been surgically removed. COMMON BILE DUCT: Normal in caliber measuring 0.7 cm in diameter. RIGHT KIDNEY: Normal. No hydronephrosis. No renal calculi or focal parenchymal lesions. The kidney measures 11.3 cm in maximum dimension. LEFT KIDNEY: Normal. No hydronephrosis. No renal calculi or focal parenchymal lesions. The kidney measures 10.5 cm in maximum dimension. SPLEEN: Normal. The spleen measures 10.0 cm in maximum dimension. FREE FLUID: There is no free fluid. US/US abdomen comp w elastography IMPRESSION: 1. Diffuse increased echogenicity of liver likely mild hepatic steatosis. No focal hepatic lesion. 2. Liver elastography: Median liver stiffness measures 1.41m/s which corresponds to cACLD ruled out. REFERENCE: Society of Radiologists in Ultrasound Liver Stiffness Thresholds (2020): LIVER STIFFNESS THRESHOLDS: *Liver Stiffness equal or less than 1.3 m/s: High probability of being normal. *Liver Stiffness less than 1.7 m/s: In the absence of other known clinical signs, rules out compensated advanced chronic liver disease. *Liver Stiffness 1.7-2.1 m/s: Suggestive of compensated advanced chronic liver disease but need further test for confirmation. *Liver Stiffness over 2.1 m/s: Rules in compensated advanced chronic liver disease. *Liver Stiffness over 2.4 m/s: Suggestive of clinically significant portal hypertension. QUALITY OF DATA SET: *IQR/Median value equal or less than 0.15 implies a quality data set. *IQR/Median value over 0.15 implies a poor quality data set. SIGNIFICANT CHANGE FROM PRIOR EXAM: Significant change if liver stiffness measurement is 10% or greater from prior exam. OTHER CONSIDERATIONS: The stage of liver fibrosis may be overestimated in the setting of acute hepatitis, liver inflammation, elevated liver function tests, hepatic vascular congestion, obstructive cholestasis, non-fasting state, and infiltrative diseases such as amyloidosis and lymphoma. In some patients with NAFLD, the liver stiffness thresholds for compensated advanced chronic liver disease may be lower. In causes other than viral hepatitis and NAFLD, liver stiffness thresholds are not well established.
== END 2023-02-19 07:27 | disposition home or self-care (01) ==
LOC: HO.US 07:26
PROVIDERS: PCP Internal Medicine Geriatric Medicine; Visit Provider Internal Medicine Gastroenterology
DX: R10.11 Right upper quadrant pain (principal); G89.29 Other chronic pain
CPT/HCPCS: 76705; 76981

== ENCOUNTER 2023-04-15 11:42 | Outpatient (REF) | payer MEDICAID, SELFPAY ==
--- NOTE | ~2023-04-15 | XR_ITS ---
EXAMINATION: XR KNEE, RIGHT CLINICAL INFORMATION: Pain COMPARISON: None available. TECHNIQUE: Four views of the right knee. FINDINGS: There is mild loss of medial and patellofemoral compartment joint space without bony erosive changes or loose bodies. No visible acute fracture or dislocation. No bony erosive changes. Minimal suprapatellar joint effusion suspected. There is a moderate-sized anterior patellar enthesophyte. XR/XR knee RT 3V IMPRESSION: Degenerative arthritic changes medial and patellofemoral compartment.
== END 2023-04-15 11:43 | disposition home or self-care (01) ==
LOC: HO.XRAY 11:42
PROVIDERS: PCP Internal Medicine Geriatric Medicine; Visit Provider Nurse Practitioner Family
DX: M79.7 Fibromyalgia (principal); M25.561 Pain in right knee
CPT/HCPCS: 73562; 99212

== ENCOUNTER 2023-05-14 10:24 | Outpatient (REF) | payer MEDICAID, SELFPAY ==
--- NOTE | ~2023-05-14 | XR_ITS ---
EXAMINATION: XR CHEST CLINICAL INFORMATION: Chest pain radiating to back COMPARISON: Previous chest x-ray from 2017 TECHNIQUE: 2 views of the chest were obtained. FINDINGS: The cardiac and mediastinal contours are normal. The lungs are clear. No pleural effusion or pneumothorax. There are degenerative changes of the spine. XR/XR chest 2V IMPRESSION: No evidence for acute disease in the chest.
--- NOTE | ~2023-05-14 | XR_ITS ---
EXAMINATION: XR THORACOLUMBAR SPINE CLINICAL INFORMATION: Pain COMPARISON: None available. TECHNIQUE: 2 views of the thoracic spine FINDINGS: Bone alignment is normal. No fracture or dislocation. Degenerative spondylosis of the mid and lower thoracic spine. Paraspinal soft tissues are normal. XR/XR thoracic spine 2V IMPRESSION: Mild degenerative changes.
== END 2023-05-14 10:25 | disposition home or self-care (01) ==
LOC: HO.HHCX 10:24
PROVIDERS: Visit Provider Internal Medicine Geriatric Medicine
DX: R07.89 Other chest pain (principal); M54.6 Pain in thoracic spine
CPT/HCPCS: 71046; 72070

== ENCOUNTER 2023-08-07 10:56 | Outpatient (AMB) | payer MEDICAID, SELFPAY ==
--- NOTE | 2023-08-07 10:57 | A.OFFVIS_ITS ---
Intake Vital Signs 08/07/23 10:58 Height 5 ft 2 in Weight 202 lb 13.204 oz BMI 37.1 Blood Pressure Location Lt brachial Position Sitting Intake Visit Reasons: 4 Month follow for chronic RUQ Pain Intake Note: Audrey presents in the office as a 4 month follow up for RUQ pains. CC: She states that she has the pains in her stomach RUQ - no matter if she eats or not. She will try to take the medications - only pantoprazole. Allergies codeine Allergy (Severe, Verified 08/07/23 11:01) anaphylaxis ibuprofen [From MOTRIN] Allergy (Severe, Verified 08/07/23 11:01) SWELLING iodine Allergy (Severe, Verified 08/07/23 11:01) anaphylaxis prednisone [PREDNISONE] Allergy (Severe, Verified 08/07/23 11:01) ANAPHYLAXIS aspirin [ASPIRIN] Allergy (Intermediate, Verified 08/07/23 11:01) SWELLING, anaphylaxis cortisone [CORTISONE] Allergy (Intermediate, Verified 08/07/23 11:01) SHAKING,HTN HPI 4 Month follow for chronic RUQ Pain HPI Details 63 yr old f here for f/u ------site interpreter---- Last seen few years ago ? RECAP: ? Patient seen in past for constipation and hepatic steatosis ? Had prescribed Dulcolax as well as Citrucel for bowel motility- has diverticulosis, Had been made aware that the due to the tubular adenomas removed at the 15 colonoscopy, she would need a 2 yr repeat ? She was c/p epigastric pain and GES ordered--nml ? she was on zantac and PPI ? sx were persistent when I called her with pain RUQ, worse with food, 7/10 in severity changed to protonix, if sx ongoing then repeat EGD, u/s RUQ and trial of bentyl however she was taking omeprazole which seemed to have been helping referred to endo for monitoring of thyroid cysts ? ? ? [facility] in [facility]- ? 01/2018- cbc, lytes, bun/Cr=nl, AST-22, ALT-48, rept 05/2019--normal AST/ALT 10/2020--nml CBC, LFT, TSH ? ? ? Diagnostic studies ? EGD 2018- chemical gastritis, neg for h pylori ? 10/2018- US and- surveillance-+ Hepatic steatosis, no focal lesion, s/p cholecystectomy. ? [id number], no focal lesion ? 09/2019--GES--normal 2018--colonoscopy --tubular adenomas rem juancarlos incl elongated polyp 2-3 cm ? 05/2020--thyroid scan--? complex cyst right thyroid lobe ? EGD 08/19--chronic infl at [facility], schatzki ring dilated with tear noted ? u/s for liver 06/2020--hepatic steatosis, diffuse, F0 ? ? MRI 03/2021--nml CBD, no stircutres, or stones seen, fatty liver colonoscopy 06/19--normal, no polyps, small hemorrhoids noted, bx with melanosis coli CT 12/21-- small umbilical hernia US-- steatosis, GB removed ---nml lft ?INTERIM: she has ongoing pain in her RUQ side--sharp and burning at times she has nausea, no vomiting sometimes pain is worse with starch or greasy foods but can also be worse with lifting, stretching not relieved with PPI which she takes daily she is taking bentyl but doesnlt help her right sided pain takes narcotics few times a month for back pain constipation is ongoing --takes dulcolax and it works well when taken prn EXAM: GENERAL: The patient is obese,relaxed VITAL SIGNS:see workflow HEENT: Nonicteric sclerae, PERRLA, EOMI. Oropharynx clear. Moist mucous membranes. Conjunctivae appear well perfused. No thyroid mass. CHEST: Chest wall is nontender. HEART: Regular rate and rhythm without murmurs. LUNGS: Clear to auscultation bilaterally. ABDOMEN: Soft, positive bowel sounds, tender ruq, no organomegaly.no flank tenderness--pain also worse with movement and flexion of spine SKIN: No rash, no excessive bruising, petechiae, or purpura. NEUROLOGIC: Cranial nerves II-XII intact without motor/sensory deficit. ? Assessment & Plan (1) RUQ pain, worse with greasy foods, p ossibly retained CBD stones or other pancreatic pathology vs referred pain from spine given the burning sensation ? Plan: 1/? cont with PPI,? bentyl QID, 2/ refer pain clinic for assessment of s pine and treatment modalities 3/ MRCP [facility] Medical History Abdominal hernia Asthma Depression Epidermal cyst Fibromyalgia GERD (gastroesophageal reflux disease) History of fatty infiltration of liver History of panic attacks Hx of migraine headaches Incisional pain Thyroid nodule Vitamin D deficiency Surgical History H/O shoulder surgery History of back surgery History of colonoscopy History of esophagogastroduodenoscopy (EGD) History of removal of cyst Hx laparoscopic cholecystectomy Hx of dilation and curettage Hx of tubal ligation Family History Father No problems noted. Mother Ovarian cancer Sister Thyroid nodule Hypothyroidism Sister Hypothyroidism Thyroid nodule Brother Cancer of unknown origin Social History Household Members: Family Alcohol intake: never Patient Tobacco Use Status: Former Tobacco user Tobacco use type: Cigarette Cigarette Packs Per Day: 1 Cigarettes Per Day: 20.0 Years Smoked: 15 Physical Exam Vital Signs: BMI result Body Mass Index 37.1 Assessment & Plan Assessment & Plan (1) Vitamin D deficiency: Code(s): E55.9 - Vitamin D deficiency, unspecified (2) Epigastric abdominal pain: Code(s): R10.13 - Epigastric pain (3) Chronic RUQ pain: Code(s): R10.11 - Right upper quadrant pain; G89.29 - Other chronic pain Orders: Orders Comprehensive Met. Panel Today E55.9 - Vitamin D deficiency, unspecified, G89.29 - Other chronic pain, K75.81 - Nonalcoholic steatohepatitis (BARBOSA), R10.11 - Right upper quadrant pain, R10.13 - Epigastric pain Vitamin A Today E55.9 - Vitamin D deficiency, unspecified, G89.29 - Other chronic pain, R10.11 - Right upper quadrant pain, R10.13 - Epigastric pain Coding Level of Care Code Est Pt Level 3 (73525) Diagnoses Vitamin D deficiency E55.9 Epigastric abdominal pain R10.13 Chronic RUQ pain R10.11; G89.29
[2023-08-07 10:58] VITALS: BMI 37.1
== END 2023-08-07 11:32 | disposition home or self-care (01) ==
PROVIDERS: PCP Internal Medicine Geriatric Medicine; Visit Provider Internal Medicine Gastroenterology
DX: E55.9 Vitamin D deficiency, unspecified (principal); R10.13 Epigastric pain; R10.11 Right upper quadrant pain; G89.29 Other chronic pain
CPT/HCPCS: 99213

== ENCOUNTER → 2023-08-07 10:56 | Outpatient (BNVA) | payer MEDICAID, SELFPAY | PROVIDERS: PCP Internal Medicine Geriatric Medicine; Visit Provider Internal Medicine Gastroenterology | DX: R10.13 Epigastric pain (principal); G89.29 Other chronic pain; R10.11 Right upper quadrant pain; E55.9 Vitamin D deficiency, unspecified | CPT/HCPCS: 99212 ==

== ENCOUNTER 2023-09-02 17:49 | Outpatient (REF) | payer MEDICAID, SELFPAY ==
[2023-09-02 18:09] LABS: Appearance Urine Turbid; Color Urine Yellow; Glucose Urine UA Negative (Negative); Leukocyte Esterase Urine Small (1+) (Negative); Nitrite Urine Positive (Negative); PH 5.5 (5.0-9.0); UMIC TRIGGER UACC YES; Urine Blood Negative (Negative); Urine Ketones Negative (Negative); Urine Protein Negative (Neg-Trace)
[2023-09-02 18:24] LABS: Bacteria Urine 4+ (None Seen); Hyaline Casts Urine 0-2 /LPF (0-2); Squamous Epithelial Cell Urine 0-2 /HPF (0-2); UACC Culture Trigger YES
[2023-09-03 03:17] LABS: CT PCR NOT DETECTED (Not Detect.); NG PCR NOT DETECTED (Not Detect.)
[2023-09-03 12:34] LABS: BV Int Neg Control Negative (Negative); BV Int Pos Control Positive (Positive)
== END 2023-09-02 17:50 | disposition home or self-care (01) ==
LOC: HO.HHCLNP 17:49
PROVIDERS: Visit Provider Internal Medicine Geriatric Medicine
DX: N76.0 Acute vaginitis (principal)
CPT/HCPCS: 0353U; 81001; 87086; 87088; 87186; 87480; 87510; 87660

== ENCOUNTER 2023-09-10 18:58 | Outpatient (REF) | payer MEDICAID, SELFPAY ==
[2023-09-17 09:13] LABS: Alphahydroxymidazolam,GCMS Ur NEGATIVE; Alphahydroxytriazolam, GCMS Ur NEGATIVE; Alprazolam, GCMS Urine NEGATIVE; Aminoclonazepam, GCMS Urine NEGATIVE; Flurazepam Metabolite,GCMS Ur NEGATIVE; Lorazepam GCMS Urine NEGATIVE; Nordiazepam, GCMS Urine NEGATIVE; Oxazepam, GCMS Urine NEGATIVE; Temazepam, GCMS Urine NEGATIVE
== END 2023-09-10 18:59 | disposition home or self-care (01) ==
LOC: HO.HHCLNP 18:58
PROVIDERS: Visit Provider Internal Medicine Geriatric Medicine
DX: G89.29 Other chronic pain (principal); M54.50 Low back pain, unspecified
CPT/HCPCS: 80346

== ENCOUNTER 2024-02-11 16:21 | Outpatient (REF) | payer MEDICAID, SELFPAY ==
[2024-02-15 09:07] LABS: Oxycodone Screen Urine POSITIVE
[2024-02-15 09:08] LABS: Alphahydroxymidazolam,GCMS Ur NEGATIVE; Alphahydroxytriazolam, GCMS Ur NEGATIVE; Alprazolam, GCMS Urine NEGATIVE; Aminoclonazepam, GCMS Urine NEGATIVE; Lorazepam GCMS Urine NEGATIVE; Nordiazepam, GCMS Urine NEGATIVE; Oxazepam, GCMS Urine NEGATIVE; Temazepam, GCMS Urine NEGATIVE
[2024-02-15 09:09] LABS: Flurazepam Metabolite,GCMS Ur NEGATIVE
== END 2024-02-11 16:22 | disposition home or self-care (01) ==
LOC: HO.HHCLNP 16:21
PROVIDERS: Visit Provider Internal Medicine Geriatric Medicine
DX: M54.50 Low back pain, unspecified (principal); G89.29 Other chronic pain
CPT/HCPCS: 80307; 80346

== ENCOUNTER 2024-03-07 15:10 | Outpatient (REF) | payer MEDICAID, SELFPAY | END 2024-03-07 15:11 | disposition home or self-care (01) | LOC: HO.MAMMO 15:10 | PROVIDERS: PCP Internal Medicine Geriatric Medicine; Visit Provider Internal Medicine Geriatric Medicine | DX: Z12.31 Encounter for screening mammogram for malignant neoplasm of breast (principal) | CPT/HCPCS: 77063; 77067 ==

== ENCOUNTER → 2024-03-07 16:15 | Outpatient (BNV) | payer MEDICAID, SELFPAY | PROVIDERS: PCP Internal Medicine Geriatric Medicine; Visit Provider Radiology Diagnostic Radiology | DX: Z12.31 Encounter for screening mammogram for malignant neoplasm of breast (principal) | CPT/HCPCS: 77063; 77067 ==

== ENCOUNTER 2024-04-11 13:10 | Outpatient (REF) | payer MEDICAID, SELFPAY ==
[2024-04-11 13:31] LABS: Oxycodone Screen Urine Positive (Not Detect)
== END 2024-04-11 13:11 | disposition home or self-care (01) ==
LOC: HO.HHCLNP 13:10
PROVIDERS: Visit Provider Internal Medicine Geriatric Medicine
DX: M54.50 Low back pain, unspecified (principal); G89.29 Other chronic pain
CPT/HCPCS: 80307

== ENCOUNTER 2024-04-15 17:33 | Outpatient (REF) | payer MEDICAID, SELFPAY ==
[2024-04-16 03:56] LABS: CT PCR NOT DETECTED (Not Detect.); NG PCR NOT DETECTED (Not Detect.)
[2024-04-16 09:39] LABS: Bacterial Vaginosis PCR NEGATIVE (Negative); Candida Group PCR NOT DETECTED (Not Detect); Candida glab krusei PCR NOT DETECTED (Not Detect); Trichomonas vaginalis PCR NOT DETECTED (Not Detect)
== END 2024-04-15 17:34 | disposition home or self-care (01) ==
LOC: HO.HHCLNP 17:33
PROVIDERS: Visit Provider Emergency Medicine
DX: N89.8 Other specified noninflammatory disorders of vagina (principal); M25.561 Pain in right knee
CPT/HCPCS: 0352U; 0353U

== ENCOUNTER 2024-04-20 09:41 | Outpatient (AMB) | payer MEDICAID, SELFPAY ==
--- NOTE | 2024-04-20 10:05 | MHC.OFFVIS ---
Vital Signs 04/20/24 10:06 Height 5 ft 2 in Weight 207 lb 3.752 oz BMI 37.9 BP 112/62 Blood Pressure Location Rt brachial Position Sitting Pulse 76 Pulse Oximetry (%) 97 Intake Visit Reasons: FM Intake Note: Patient last seen by Toya Powers on 04/15/23 presents today for 1 year follow up. Today she reports she's had frequent falls. c/o right knee pain. Patient has not been using her knee braces. Still following with [facility] for back pain. Reimbursement Representative Required: Yes Reimbursement Representative Language: Brand Strategy Manager Name: Sarah [id number] Information Interpreted: clinical only Accompanied by: Self / Same As Patient Allergies codeine Allergy (Severe, Verified 04/20/24 10:10) anaphylaxis ibuprofen [From MOTRIN] Allergy (Severe, Verified 04/20/24 10:10) SWELLING iodine Allergy (Severe, Verified 04/20/24 10:10) anaphylaxis prednisone [PREDNISONE] Allergy (Severe, Verified 04/20/24 10:10) ANAPHYLAXIS aspirin [ASPIRIN] Allergy (Intermediate, Verified 04/20/24 10:10) SWELLING, anaphylaxis cortisone [CORTISONE] Allergy (Intermediate, Verified 04/20/24 10:10) SHAKING,HTN Medication List - Last Reconciled 04/20/24 by Janey Hill MD acetaminophen 500 mg PO Q6H PRN albuterol sulfate 90 mcg/actuation (ProAir HFA) 2 puffs inhalation Q6H PRN aqwgxezywi-jyztpgfqgamtj-rmev 50-300-40 mg 1 cap PO Q8H PRN carvedilol 3.125 mg PO BID carvedilol 12.5 mg PO BID cholecalciferol (vitamin D3) 50 mcg PO DAILY 30 days clonazepam 0.5 mg PO DAILY cyclobenzaprine 10 mg PO BID dicyclomine 10 mg PO QID diphenhydramine HCl (Banophen) 25 mg PO Q8H PRN enalapril maleate 10 mg PO DAILY epinephrine (EpiPen 2-Abilio) 0.3 mg IM Q10M PRN estradiol 0.01%(0.1mg/gram) 1 g vaginal 3XW fluticasone propionate 220 mcg/actuation (Flovent HFA) 1 puff inhalation BID gabapentin 300 mg PO TID meclizine 25 mg PO DAILY metformin 850 mg PO DAILY mirabegron ER (Myrbetriq) 50 mg PO QAM oxycodone-acetaminophen 5-325 mg 1 tab PO Q6H PRN pantoprazole 40 mg PO BID semaglutide (weight loss) (Wegovy) 0.5 mg subcut QWEEK venlafaxine ER 150 mg PO QAM HPI Comments Details: This is a 63-year-old female with fibromyalgia who presents for follow-up. She was last seen by Kitty Powers 03/2023. She states that she was going to the gym and lifting weights and it was helping her overall pain but she was having back pain. She was told that she has a pinched nerve in her back and now she is scared to go back to the gym. Early this year she had a sleep study and was diagnosed with sleep apnea and prescribed a CPAP machine which she uses regularly. She has been having bilateral knee pain worse on the right and she bought a knee brace which is providing little relief. [facility] Medical History SOFI (obstructive sleep apnea) Incisional pain Abdominal hernia History of fatty infiltration of liver GERD (gastroesophageal reflux disease) History of panic attacks Depression Hx of migraine headaches Asthma Fibromyalgia Epidermal cyst Vitamin D deficiency Thyroid nodule Surgical History History of surgery Hx of tubal ligation Hx of dilation and curettage Hx laparoscopic cholecystectomy History of esophagogastroduodenoscopy (EGD) History of removal of cyst H/O shoulder surgery History of back surgery History of colonoscopy Family History Father No problems noted. Mother Ovarian cancer Sister Thyroid nodule Hypothyroidism Sister Hypothyroidism Thyroid nodule Brother Cancer of unknown origin Social History Household Members: Family Alcohol intake: never Patient Tobacco Use Status: Former Tobacco user Tobacco use type: Cigarette Cigarette Packs Per Day: 1 Cigarettes Per Day: 20.0 Years Smoked: 15 Review of Systems Musc Reports back pain, Reports arthralgias, Denies joint swelling and Reports stiffness Physical Exam Vital Signs: Last Vital Signs Pulse 76 04/20/24 10:06 BP 112/62 04/20/24 10:06 Pulse Ox 97 05/22/24 10:06 BMI result Body Mass Index 37.9 Const General: cooperative, healthy appearing and comfortable Nutritional Appearance: obese morbidly obese Orientation/consciousness: patient oriented x3 Limitations: no limitations HEENT Head: Yes normocephalic and Yes atraumatic Mouth: moist mucous membranes Resp Effort & Inspection: normal respiratory effort and able to speak in complete sentences Auscultation: clear to auscultation bilaterally Cardio Rate: regular rate Rhythm: regular rhythm GI Inspection: No distended Palpation (GI): Soft to palpation and nontender Skin General skin exam: no rashes or lesions noted Neuro General: patient oriented x3 Extrem Other: No active synovitis Right knee pain with full flexion and extension Assessment & Plan Assessment & Plan (1) Fibromyalgia: Code(s): M79.7 - Fibromyalgia Category: Medical Plan: This is a 63-year-old female with fibromyalgia who presents for follow-up. She was last seen by Kitty Powers 03/2023. I suggested operating light activities. I suggested aquatherapy or water aerobics. Patient will think about it. She was recently diagnosed with obstructive sleep apnea and uses her CPAP machine regularly. Follow-up with PCP (2) Osteoarthritis of knees, bilateral: Code(s): M17.0 - Bilateral primary osteoarthritis of knee Category: Medical Qualifiers: Osteoarthritis type: primary Qualified Code(s): M17.0 - Bilateral primary osteoarthritis of knee Plan: More symptomatic on the right. She has bought a knee brace which did not help much. Referred patient to orthopedics Plan I spent 16 minutes reviewing patient's chart, evaluating patient, , counseling patient and documenting in the chart Orders: Referrals Orthopedics Referral M17.0 - Bilateral primary osteoarthritis of knee Coding Level of Care Code Est Pt Level 3 (15720) Diagnoses Fibromyalgia M79.7 Primary osteoarthritis of both knees M17.0 Osteoarthritis type: primary
[2024-04-20 10:06] VITALS: BP 112/62; PULSE 76; O2SAT 97; BMI 37.9
== END 2024-04-20 10:48 | disposition home or self-care (01) ==
PROVIDERS: PCP Internal Medicine Geriatric Medicine; Visit Provider Student in an Organized Health Care Education/Training Program
DX: M79.7 Fibromyalgia (principal); M17.0 Bilateral primary osteoarthritis of knee
CPT/HCPCS: 99213

== ENCOUNTER → 2024-04-20 09:41 | Outpatient (BNVA) | payer MEDICAID, SELFPAY | PROVIDERS: Visit Provider Student in an Organized Health Care Education/Training Program | DX: M79.7 Fibromyalgia (principal); M17.0 Bilateral primary osteoarthritis of knee | CPT/HCPCS: 99212 ==

== ENCOUNTER 2024-06-09 18:13 | Outpatient (REF) | payer MEDICAID, SELFPAY ==
[2024-06-10 03:08] LABS: CT PCR NOT DETECTED (Not Detect.); NG PCR NOT DETECTED (Not Detect.)
[2024-06-10 10:45] LABS: Bacterial Vaginosis PCR NEGATIVE (Negative); Candida Group PCR NOT DETECTED (Not Detect); Candida glab krusei PCR NOT DETECTED (Not Detect); Trichomonas vaginalis PCR NOT DETECTED (Not Detect)
== END 2024-06-09 18:14 | disposition home or self-care (01) ==
LOC: HO.HHCLNP 18:13
PROVIDERS: Visit Provider Internal Medicine
DX: N89.8 Other specified noninflammatory disorders of vagina (principal)
CPT/HCPCS: 0352U; 87086; 87088; 87186; 87491; 87591

== ENCOUNTER 2024-08-22 17:36 | Outpatient (REF) | payer MEDICAID, SELFPAY ==
[2024-08-23 11:56] LABS: Bacterial Vaginosis PCR NEGATIVE (Negative); Candida Group PCR DETECTED (Not Detect); Candida glab krusei PCR NOT DETECTED (Not Detect); Trichomonas vaginalis PCR NOT DETECTED (Not Detect)
== END 2024-08-22 17:37 | disposition home or self-care (01) ==
LOC: HO.HHCLNP 17:36
PROVIDERS: Visit Provider Nurse Practitioner
DX: N89.8 Other specified noninflammatory disorders of vagina (principal)
CPT/HCPCS: 0352U

== ENCOUNTER 2024-09-02 09:11 | Outpatient (REF) | payer MEDICAID, SELFPAY ==
[2024-09-02 11:09] LABS: MANUAL DIFF FLAG NO
[2024-09-02 11:16] LABS: Basophils Percent Auto 0.7 % (0-2); Eosinophils Absolute Auto 0.4 X10*3/uL (0.0-0.4); Eosinophils Percent Auto 6.5 % (0-4); Hematocrit 41.8 % (37.0-47.0); Hemoglobin 13.5 g/dl (12.0-16.0); Imm Gran Abs Auto 0.02 X10*3/uL (0.00-0.03); Imm Gran Pct Auto 0.3 % (0.0-0.4); Lymphocytes Absolute Auto 1.6 X10*3/uL (1.2-4.9); Lymphocytes Percent Auto 26.8 % (20-40); Mean Corpuscular HGB Conc 32.3 g/dl (31.0-35.0); Mean Corpuscular Volume 89.9 fL (80.0-98.0); Mean Platelet Volume 10.8 fL (9.4-12.3); Monocytes Absolute Auto 0.5 X10*3/uL (0.1-1.2); Neutrophils Absolute Auto 3.5 x10*3/uL (2.0-8.3); Neutrophils Percent Auto 57.7 % (45-73); Platelet Count 225 X10*3/uL (160-400); Red Blood Count 4.65 X10*6/uL (4.20-5.50)
[2024-09-02 12:59] LABS: Alanine Aminotransferase 17 U/L (0-31); Albumin Level 3.7 g/dL (3.5-5.0); Alkaline Phosphatase 84 U/L (39-117); Anion Gap 10 (12-20); Aspartate Amino Transferase 16 U/L (5-31); Bilirubin Total 0.2 mg/dL (0.0-1.0); Blood Urea Nitrogen 14 mg/dL (9-16); Carbon Dioxide 24 mmol/L (22-29); Chloride 109 mmol/L (96-108); Cholesterol 190 mg/dL (<200); Estimated Glomerular Filt Rate > 60; Glucose Random 93 mg/dL (60-115); HDL Cholesterol 50 mg/dL (>40); LDL Cholesterol Calculated 120 mg/dL (<100); Potassium 3.9 mmol/L (3.3-5.1); Sodium 139 mmol/L (135-145); Triglycerides 101 mg/dL (<150)
== END 2024-09-02 09:12 | disposition home or self-care (01) ==
LOC: HO.HHCL 09:11
PROVIDERS: Visit Provider Internal Medicine Geriatric Medicine
DX: E66.9 Obesity, unspecified (principal); I10 Essential (primary) hypertension; R73.03 Prediabetes; R10.9 Unspecified abdominal pain; G89.29 Other chronic pain
CPT/HCPCS: 36415; 80053; 80061; 85025

== ENCOUNTER 2025-07-11 10:00 | Outpatient (REF) | payer MEDICAID, SELFPAY ==
--- OUTSIDE RECORDS SUMMARY | 2025-07-11 13:45 | XMS_ITS | Clinical Summary ---
Author Organization [facility] Address [address] [place] [address] Phone Care Team Providers Care Mate Fourth Name Role Phone Name, Dieter HERNANDEZ Primary Care Provider [phone] Allergies Active Allergy Reactions Criticality Noted Date Comments Aspirin 11/15/2024 Codeine 11/15/2024 Cortisone 11/15/2024 Sodium 11/15/2024 Medications gabapentin (NEURONTIN) 300 mg capsule Take 1 capsule (300 mg total) by mouth 3 (three) times a day. Active oxycodone HCl/acetaminoph en (PERCOCET ORAL) Take by mouth. Active diphenhydrAMINE (BENADRYL) 25 mg capsule Take by mouth every 6 (six) hours if needed for itching. Active pantoprazole (PROTONIX) 20 mg EC tablet Take 1 tablet (20 mg total) by mouth 1 (one) time each day before breakfast. Do not crush, chew, or split. Active LORazepam (ATIVAN) 1 mg tablet Take 1 tablet (1 mg total) by mouth every 6 (six) hours if needed for anxiety. Max Daily Amount: 4 mg Active EPINEPHrine (AUVI-Q) 0.15 mg/0.15 mL inj auto-injector injection Inject 0.15 mL (0.15 mg total) into the thigh 1 (one) time if needed. Active carvediloL (COREG) 12.5 mg tablet TAKE 1 TABLET BY MOUTH TWICE DAILY IN THE MORNING AND IN THE EVENING Active clonazePAM (KlonoPIN) 0.5 mg tablet Take 1 tablet (0.5 mg total) by mouth 1 (one) time each day if needed. Max Daily Amount: 0.5 mg 05/16/2020 Active enalapril (VASOTEC) 20 mg tablet Take 1 tablet (20 mg total) by mouth 2 (two) times a day. Active Active Problems Problem Noted Date Diagnosed Date Primary osteoarthritis of right knee 01/25/2025 Primary osteoarthritis of left knee 01/25/2025 Severe obesity (BMI 35.0-39. 9) with comorbidity ([facility] V24, [facility] V28) 01/25/2025 Acute cystitis without hematuria 06/09/2024 Vaginal itching 06/09/2024 Chronic back pain 05/14/2023 Overview (12/06/2024): For many years H/o LS surgery in the past Has seen pain clinic, physiatry and rheumatology in the past Fibromyalgia 05/14/2023 SOFI (obstructive sleep apnea) 01/09/2023 Prediabetes 01/09/2023 Migraine 11/04/2022 Moderate asthma 11/04/2022 Obesity (BMI 30-39.9) 11/04/2022 Adenomatous polyp of colon 11/28/2020 Periungual wart 05/04/2019 Vertigo 05/06/2018 History of cholecystectomy 04/20/2018 Panic attack 07/28/2017 Benign neoplasm of meninges ([facility] V24, [facility] V28) 05/26/2017 Benign paroxysmal positional vertigo 05/26/[address] 02/26/2017 Overview (12/06/2024): Right frontal calcified meningioma stable since 2017 Agoraphobia 09/22/2016 Urinary incontinence 07/23/2016 Heartburn 05/22/2016 Hypertensive disorder 05/22/2016 Mild major depression ([facility] V24) 05/22/2016 Social History Tobacco Use Types Packs/Day Years Used Date Smoking Tobacco: Never Assessed Comments Unknown Sex and Gender Information Value Date Recorded Sex Assigned at Not on file Legal Sex Female 5:05 AM EST Gender Identity Not on file Sexual Orientation Not on file Last Filed Vital Signs Vital Sign Reading Time Taken Comments Blood Pressure - - Pulse - - Temperature - - Respiratory Rate - - Oxygen Saturation - - Inhaled Oxygen Concentration - - Weight 96.8 kg (213 lb 6.4 oz) 01/25/2025 8:58 A M EST Height 157.5 cm (5' 2 ) 01/25/2025 8:58 AM EST Body Mass Index 39.03 01/25/2025 8:58 AM EST Plan of Treatment Health Maintenance Due Date Last Done Comments Breast Cancer Screening 1960 Cervical Cancer Screening: Pap Smear 1983 RSV Immunization Adult Patients (1 - Risk 60-74 years 1-dose series) 2022 Colorectal Cancer Screening: Colonoscopy 11/02/2022 HIV Screening 11/02/2022 Hepatitis C Screening 11/02/2022 Social Influencers of Health Screening 11/02/2022 Pneumococcal Vaccine: 50+ Years (2 of 2 - PCV) 01/22/2023 01/22/2022 COVID-19 Vaccine (5 - 2023- season) 2024 07/03/2022, 10/16/2021, 03/27/2021, Additional history exists Depression Screening 11/30/2024 Influenza Vaccine (#1) 2025 , 11/09/2023, 11/04/2022, Additional history exists Hypertension/CHF/CAD Annual BMP Blood Test 09/02/2025 09/02/2024 DTaP,Tdap,and Td Vaccines (2 - Td or Tdap) 09/22/2026 09/22/2016 Cholesterol Screening (Lipid Panel) 09/02/2029 09/02/2024 Zoster Vaccines Completed 07/15/2022, 05/13/2022 HIB Vaccines Aged Out No longer eligi ble based on patient's age to complete this topic HPV Vaccines Aged Out No longer eligi ble based on patient's age to complete this topic Hepatitis A Vaccines Aged Out No long er eligible based on patient's age to complete this topic Hepatitis B Vaccines Aged Out No long er eligible based on patient's age to complete this topic IPV Vaccines Aged Out No longer eligi ble based on patient's age to complete this topic MMR Vaccines Aged Out No longer eligi ble based on patient's age to complete this topic Meningococcal ACWY Vaccine Aged Out N o longer eligible based on patient's age to complete this topic Meningococcal B Vaccine Aged Out No l onger eligible based on patient's age to complete this topic RSV Immunization Patients Under 20 months Aged Out No longer eligible based on patient's age to complete this topic Varicella Vaccines Aged Out No longer eligible based on patient's age to complete this topic Insurance MEDICAID - [place] Care Teams Mate Fourth Relationship Specialty Start Date End Date Name, MD Dieter [address] [place], [place] PCP - General 08/09/21
--- OUTSIDE RECORDS SUMMARY | 2025-07-11 13:45 | XMS_ITS | Encounter Summary ---
Author Organization [employer] Address [address] [facility] 7t [place] [address] Care Team Providers Care Pulp House Supervisor Name Role Phone Name, Dieter HERNANDEZ Primary Care Provider [phone] Reason for Visit * Reason Onset Date Comments Med Refill 07/07/2025 Encounter Details Date Type Department Care Team (Late st Contact Info) Description 07/07/2025 Refill [facility] [address] [place] [address] Name, MD Dieter [address] [place] [address] Chronic pain syndrome Social History Tobacco Use Types Packs/Day Years Used Date Smoking Tobacco: Former Smokeless Tobacco: Never Alcohol Use Standard Drinks/Week Comments Never 0 (1 standard drink = 0.6 oz pur e alcohol) Depression Answer Date Recorded Patient Health Questionnaire-9 Score 7 03/21/2025 Patient Health Questionnaire-9 Score 7 03/21/2025 Last PHQ-9: Questionnaire Data Not on file 0 03/21/2025 Housing Stability Answer Date Recorded What is your housing situation today? I have purvi dodson 05/25/[address] you li ve. Do you have problems with any of the following? None of the above 05/25/2024 Food Insecurity Answer Date Recorded Within the past 12 months, y ou worried that your food would run out before you got money to buy more: Never True 05/25/2024 Within the past 12 months,th e food you bought just didn't last and you didn't have enough money to get more: Never True Transportation Answer Date Recorded In the past 12 months, has l ack of transportation kept you from medical appts, meetings, work or from getting things needed for daily living? No 05/25/2024 Utilities Answer Date Recorded In the past 12 months, has t he electric, gas, oil or water company threatened to shut off services in your home? No 05/25/2024 Depression Answer Date Recorded Patient Health Questionnaire-2 Score 3 03/21/2025 Internet Access Answer Date Recorded Internet Access Q1 Yes 01/10/2025 Internet Access Q2 Not on file 01/10/2025 Comments Unknown Sex and Gender Information Value Date Recorded Sex Assigned at Female 09/29/2022 10:29 AM EDT Legal Sex Female 10:29 AM EDT Gender Identity Female 09/29/2022 10:29 AM EDT Sexual Orientation Straight 09/29/2022 10 :29 AM EDT documented as of this encounter Miscellaneous Notes * Telephone Encounter - Higinio Coreas - 07/07/2025 2:17 PM EDT TC from pt requesting medication refill. Medications needing refill : oxyCODONE (Roxicodone) 5 MG immediate release tablet To be sent to: [facility] documented in this encounter Plan of Treatment Upcoming Encounters Date Type Department Care Team (Late st Contact Info) Description 07/26/2025 10:45 AM EDT Office Visit [address] [address] Name, MD Dieter [address] [place] [address] 10/10/2025 9:45 AM EST Office Visit [address] [address] documented as of this encounter Goals Goal Patient Goal Type Associated Problems Recent Progress Patient-Stated? Author Blood Pressure < 140/90 Blood Pressure 143/69( 025 10:48 AM EDT) No Cici Cottrell, PharmD documented as of this encounter Visit Diagnoses Diagnosis Chronic pain syndrome documented in this encounter Additional Health Concerns Assessment Noted Time PHQ-9 Depression Total Score: 7 03/21/20 25 11:34 AM EDT documented as of this encounter Care Teams Pulp House Supervisor Relationship Specialty Start Date End Date Name, MD Dieter [address] [place] [address] PCP - General Family Medicine 05/22/16 documented as of this encounter
== END 2025-07-11 10:01 | disposition home or self-care (01) ==
LOC: HO.HHCLNP 10:00
PROVIDERS: Visit Provider Internal Medicine Geriatric Medicine
DX: Z51.81 Encounter for therapeutic drug level monitoring (principal); Z79.891 Long term (current) use of opiate analgesic
CPT/HCPCS: 80307

== ENCOUNTER 2025-08-01 08:16 | Outpatient (REF) | payer MEDICAID, SELFPAY ==
--- OUTSIDE RECORDS SUMMARY | 2025-08-01 08:52 | XMS_ITS | Encounter Summary ---
Author Organization [employer] Address [address] [place] [address] 7t [place] [address] Care Team Providers Care Steam Table Attendant Name Role Phone Name, Dieter HERNANDEZ Primary Care Provider [phone] Reason for Visit * Reason Comments Med Refill Encounter Details Date Type Department Care Team ([facility] Contact Info) Description 02/03/2023 Refill [facility] [address] [place] [address] [phone] NameDieter MD [address] [place] [address] [phone] Hypertension, unspecified type Social History Tobacco Use Types Packs/Day Years Used Date Smoking Tobacco: Former Cigarettes Q uit: 2010 Smokeless Tobacco: Never Alcohol Use Standard Drinks/Week Comments Never 0 (1 standard drink = 0.6 oz pur e alcohol) Comments Unknown Sex and Gender Information Value Date Recorded Sex Assigned at Female 09/29/2022 10:29 AM EDT Legal Sex Female 10:29 AM EDT Gender Identity Female 09/29/2022 10:29 AM EDT Sexual Orientation Straight 09/29/2022 10 :29 AM EDT COVID-19 Exposure Response Date Recorded In the last 10 days, have yo u been in contact with someone who was confirmed or suspected to have Coronavirus/COVID-19? No / Unsure 01/13/2023 9:23 AM EST documented as of this encounter Plan of Treatment Upcoming Encounters Date Type Department Care Team ([facility] Contact Info) Description 09/12/2025 11:30 AM EDT Office Visit [facility] MEDICINE [address] [place] [address] [phone] Name, MD Deiter [address] [place] [address] [place] [address] 10/10/2025 9:45 AM EST Office Visit [facility] [place] [address] documented as of this encounter Visit Diagnoses Diagnosis Hypertension, unspecified type documented in this encounter Care Teams Steam Table Attendant Relationship Specialty Start Date End Date Name, [place] [address] PCP - General Family Medicine 05/22/16 documented as of this encounter
--- OUTSIDE RECORDS SUMMARY | 2025-08-01 08:52 | XMS_ITS | Encounter Summary ---
Author Organization [employer] Address [address] [place] [address] 7 [place] [address] Care Team Providers Care Technical Assistance Consultant Name Role Phone Name, Dieter HERNANDEZ Primary Care Provider [phone] Reason for Visit * Reason Onset Date Comments Referral to [facility] 12/12/2022 [facility] Encounter Details Date Type Department Care Team (Late st Contact Info) Description 12/12/[address] [phone] Dieter Patterson MD [address] [place] [phone] Referral to [facility] ([facility]) Social History Tobacco Use Types Packs/Day Years Used Date Smoking Tobacco: Never Assessed Comments Unknown Sex and Gender Information Value Date Recorded Sex Assigned at Female 09/29/2022 10:29 AM EDT Legal Sex Female 10:29 AM EDT Gender Identity Female 09/29/2022 10:29 AM EDT Sexual Orientation Straight 09/29/2022 10 :29 AM EDT documented as of this encounter Miscellaneous Notes * Telephone Encounter - Concepcion Thompson RN - 12/26/2022 9:25 AM EST 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 Pt would like referral to [facility] documented in this encounter Plan of Treatment Upcoming Encounters Date Type Department Care Team (Late st Contact Info) Description 09/12/2025 11:30 AM EDT Office Visit [address] [phone] Dieter Patterson MD [address] [place] [address] 10/10/2025 9:45 AM EST Office Visit [facility] [place] [address] documented as of this encounter Visit Diagnoses Not on filedocumented in this encounter Care Teams Technical Assistance Consultant Relationship Specialty Start Date End Date Name, MD Dieter [facility] [place] [address] PCP - General Family Medicine 05/22/16 documented as of this encounter
--- OUTSIDE RECORDS SUMMARY | 2025-08-01 08:52 | XMS_ITS | Encounter Summary ---
Author Organization [employer] Address [address] [facility] 7 [place] [address] Care Team Providers Care Church Warden Name Role Phone Name, Dieter HERNANDEZ Primary Care Provider [phone] Reason for Visit * Reason Onset Date Comments Medication Question 09/28/2024 Prior Authorization 09/28/2024 Encounter Details Date Type Department Care Team ([facility] st Contact Info) Description 09/28/2024 Telephone [facility] [address] [place] [address] Name, MD Dieter [address] [place] [address] Medication Question; Prior Authorization Social History Tobacco Use Types Packs/Day Years Used Date Smoking Tobacco: Former Smokeless Tobacco: Never Alcohol Use Standard Drinks/Week Comments Never 0 (1 standard drink = 0.6 oz pur e alcohol) Depression Answer Date Recorded Patient Health Questionnaire-9 Score 11 05/10/2024 Patient Health Questionnaire-9 Score 11 05/10/2024 Last PHQ-9: Questionnaire Data Not on file 0 05/10/2024 Housing Stability Answer Date Recorded What is [...] Answer Date Recorded Patient Health Questionnaire-2 Score 6 05/10/2024 Comments Unknown Sex and Gender Information Value Date Recorded Sex Assigned at Female 09/29/2022 10:29 AM EDT Legal Sex Female 10:29 AM EDT Gender Identity Female 09/29/2022 10:29 AM EDT Sexual Orientation Straight 09/29/2022 10 :29 AM EDT documented as of this encounter Miscellaneous Notes * Telephone Encounter - Guero Da Silva - 09/28/2024 8:49 AM EDT Tc from [facility] with [email or web address] PA dept calling in regards to PA for clonozepam. They received PA authorizing a month supply but she stated for longer duration they would need an adequate response 4weeks of therapy unless theres an adverse reaction or adequate response contouring medication for all anti depressants. [place] [phone]. documented in this encounter Plan of Treatment Upcoming Encounters Date Type Department Care Team (Late st Contact Info) Description 09/12/2025 11:30 AM EDT Office Visit [facility] [address] [place] [phone] Name, MD Dieter [address] [place] [address] 10/10/2025 9:45 AM EST Office Visit [address] [address] documented as of this encounter Goals Goal Patient Goal Type Associated Problems Recent Progress Patient-Stated? Author Blood Pressure < 140/90 Blood Pressure 138/74( 025 10:55 AM EDT) No Cici Cottrell, PharmD documented as of this encounter Visit Diagnoses Not on filedocumented in this encounter Additional Health Concerns Assessment Noted Time PHQ-9 Depression Total Score: 11 024 2:12 PM EDT documented as of this encounter Care Teams Church Warden Relationship Specialty Start Date End Date Name, MD Dieter [address] [place] [address] PCP - General Family Medicine 05/22/16 documented as of this encounter
--- OUTSIDE RECORDS SUMMARY | 2025-08-01 08:52 | XMS_ITS | Clinical Summary ---
Author Organization [facility] Address [address] [place] [address] Phone Care Team Providers Care Sterile Tech Name Role Phone Name, Dieter HERNANDEZ Primary Care Provider [phone] Allergies Active Allergy Reactions Criticality Noted Date [...] Severe obesity (BMI 35.0-39. 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/2016 Urinary incontinence 07/23/2016 Heartburn 05/22/2016 Hypertensive disorder 05/22/2016 Mild major depression ([facility] V24) 05/22/2016 Social History Tobacco Use Types [...] (2 of 2 - PCV) 01/22/2023 01/22/2022 Depression Screening 11/30/2024 COVID-19 Vaccine ( season) 2025 07/03/2022, 10/16/2021, 03/27/2021, Additional history exists Influenza Vaccine (#1) 2025 , 11/09/2023, 11/04/2022, [...] topic Insurance MEDICAID - [place] Care Teams Sterile Tech Relationship Specialty Start Date End Date Name, MD Dieter [address] [place], [place] PCP - General 08/09/21
--- OUTSIDE RECORDS SUMMARY | 2025-08-01 08:52 | XMS_ITS | Encounter Summary ---
Author Organization [employer] Address [address] [place] [address] 7t [place] [address] Care Team Providers Care High School Hvac R Instructor Name Role Phone Name, Dieter HERNANDEZ Primary Care Provider [phone] Encounter Details Date Type Department Care Team ([facility] Contact Info) Description 05/01/2023 Abstract [facility] [address] [place] [address] [phone] Name, MD Dieter [address] [place] [address] [phone] Social History Tobacco Use Types Packs/Day Years [...] suspected to have Coronavirus/COVID-19? No / Unsure 04/01/2023 9:40 AM EDT documented as of this encounter Plan of Treatment Upcoming Encounters Date Type Department Care Team ([facility] Contact Info) Description 09/12/2025 11:30 AM EDT Office Visit [facility] [address] [place] [address] [phone] Name, MD Dieter [address] [place] [address] [phone] 10/10/2025 9:45 AM EST Office Visit [facility] [address] [place] [address] documented as of this encounter Procedures Procedure Name Priority Date/Time Associated Diagnosis Comments COLONOSCOPY Routine 06/05/2021 10:43 AM EDT documented in this encounter Results * Colonoscopy (06/05/2021 10:43 AM EDT) Colonoscopy Normal Normal Historical Provider HEALTH MAINTENANCE Edited Result - Final documented in this encounter Visit Diagnoses Not on filedocumented in this encounter Care Teams High School Hvac R Instructor Relationship Specialty Start Date End Date Name, MD Dieter [address] [facility] [place] [address] PCP - General Family Medicine 05/22/16 documented as of this encounter
--- OUTSIDE RECORDS SUMMARY | 2025-08-01 08:52 | XMS_ITS | Encounter Summary ---
Author Organization [employer] Address [address] [facility] 7t [place] [address] Care Team Providers Care Upholstery Covers Inspector Name Role Phone Name, Dieter HERNANDEZ Primary Care Provider [phone] Reason for Visit * Reason Comments Med Refill Encounter Details Date Type Department Care Team (Late st Contact Info) Description 08/29/2024 Refill [facility] [address] [place] [address] Name, MD Dieter [address] [place], [place] [phone] Hypertension, unspecified type Social History Tobacco Use [...] Description 09/12/2025 11:30 AM EDT Office Visit [facility] MED[facility]INE [address] [place] [address] Name, MD Dieter [address] [place] [address] 10/10/2025 9:45 AM EST Office Visit [address] [address] documented as of this encounter Goals Goal Patient Goal Type Associated Problems Recent Progress Patient-Stated? Author Blood Pressure < 140/90 Blood Pressure 138/74( 025 10:55 AM EDT) No Cici Cottrell, PharmD documented as of this encounter Visit Diagnoses Diagnosis Hypertension, unspecified type documented in this encounter Additional Health Concerns Assessment Noted Time PHQ-9 Depression Total Score: 11 024 2:12 PM EDT documented as of this encounter Care Teams Upholstery Covers Inspector Relationship Specialty Start Date End Date Name, MD Dieter [address] [place] [address] PCP - General Family Medicine 05/22/16 documented as of this encounter
--- OUTSIDE RECORDS SUMMARY | 2025-08-01 08:52 | XMS_ITS | Encounter Summary ---
Author Organization [employer] Address [address] [facility] 7t [place] [address] Care Team Providers Care Board Worker Name Role Phone Name, Dieter HERNANDEZ Primary Care Provider [phone] Reason for Visit * Reason Comments Med Refill Encounter Details Date Type Department Care Team (Late st Contact Info) Description 10/01/2023 Refill [facility] [address] [place] [address] [phone] Name, MD Dieter [address] [place] [address] Panic attack Social History Tobacco Use Types Packs/Day Years Used Date Smoking Tobacco: Former Smokeless Tobacco: Never Alcohol Use Standard Drinks/Week Comments Never 0 (1 standard drink = 0.6 oz pur e alcohol) Depression Answer Date Recorded Patient Health Questionnaire-9 Score 6 05/13/2023 Housing Stability Answer Date Recorded What is your housing situation today? I have purvi dodson 09/14/[address] you li ve. Do you have problems with any of the following? None of the above 09/14/2023 Food Insecurity Answer Date Recorded Within the past 12 months, y ou worried that your food would run out before you got money to buy more: Never True 09/14/2023 Within the past 12 months,th e food you bought just didn't last and you didn't have enough money to get more: Never True Transportation Answer Date Recorded In the past 12 months, has l ack of transportation kept you from medical appts, meetings, work or from getting things needed for daily living? No 09/14/2023 Utilities Answer Date Recorded In the past 12 months, has t he electric, gas, oil or water company threatened to shut off services in your home? No 09/14/2023 Depression Answer Date Recorded Patient Health Questionnaire-2 Score 2 05/13/2023 Comments Unknown Sex and Gender Information Value [...] Description 09/12/2025 11:30 AM EDT Office Visit [facility] [address] [place] [phone] Name, MD Dieter [address] [place] [address] 10/10/2025 9:45 AM EST Office Visit [address] [address] documented as of this encounter Goals Goal Patient Goal Type Associated Problems Recent Progress Patient-Stated? Author Blood Pressure < 140/90 Blood Pressure 138/74( 025 10:55 AM EDT) No Cici Cottrell, PharmD documented as of this encounter Visit Diagnoses Diagnosis Panic attack Panic disorder without agoraphobia documented in this encounter Additional Health Concerns Assessment Noted Time PHQ-9 Depression Total Score: 6 05/13/20 23 4:04 PM EDT documented as of this encounter Care Teams Board Worker Relationship Specialty Start Date End Date Name, MD Dieter [address] [place] [address] PCP - General Family Medicine 05/22/16 documented as of this encounter
--- OUTSIDE RECORDS SUMMARY | 2025-08-01 08:52 | XMS_ITS | Encounter Summary ---
Author Organization [employer] Address [address] [place] [address] 7 [place] [address] Care Team Providers Care Yardmaster Name Role Phone Name, Dieter HERNANDEZ Primary Care Provider [phone] Encounter Details Date Type Department Care Team ([facility] st Contact Info) Description 08/12/[address] [facility] [address] [place], [place] [phone] Desirae Jacobson MD [address] [place] [address] Sinus disease (Primary Dx) Social History Tobacco Use Types Packs/Day Years [...] Description 09/12/2025 11:30 AM EDT Office Visit [facility] MEDICINE [address] [place] [address] Name, MD Dieter [address] [place] [address] 10/10/2025 9:45 AM EST Office Visit [address] [address] documented as of this encounter Goals Goal Patient Goal Type Associated Problems Recent Progress Patient-Stated? Author Blood Pressure < 140/90 Blood Pressure 138/74( 025 10:55 AM EDT) No Cici Cottrell, PharmD documented as of this encounter Visit Diagnoses Diagnosis Sinus disease- Primary documented in this encounter Additional Health Concerns Assessment Noted Time PHQ-9 Depression Total Score: 11 024 2:12 PM EDT documented as of this encounter Care Teams Yardmaster Relationship Specialty Start Date End Date Name, MD Dieter [address] [place] [address] PCP - General Family Medicine 05/22/16 documented as of this encounter
--- OUTSIDE RECORDS SUMMARY | 2025-08-01 08:52 | XMS_ITS | Clinical Summary ---
Author Organization [employer] Address [address] [place] [address] 7 [place] [address] Care Team Providers Care Denture Laboratory Technician Name Role Phone Name, Dieter HERNANDEZ Primary Care Provider [phone] Allergies Active Allergy Reactions Criticality Noted Date Comments Aspirin Anaphylaxis High 05/22/2016 Codeine Anaphylaxis High 05/22/2016 Cortisone Anaphylaxis High 05/22/2016 Ibuprofen 05/22/2016 Other reaction(s): edema Iodine Anaphylaxis High 05/22/2016 Shellfish Allergy Anaphylaxis High 05/13/2023 Sodium 11/15/2024 Medications * This document contains information received from the source organization and may not represent a complete record from that organization. dicyclomine (Bentyl) 10 MG capsule TAKE 1 CAPSULE BY MOUTH 4 TIMES A DAY 01/05/20 23 Active EPINEPHrine (Epipen) 0.3 MG/0.3ML injection syringe Inject 0.3 mL (0.3 mg) as directed 1 (one) time for 1 dose. 1 each 1 05/13/20 23 Active estradiol (Estrace) 0.1 MG/GM vaginal cream INSERT 1 GRAM VAGINALLY 3 TIMES PER WEEK DIRECTED 03/12/20 23 Active albuterol (2.5 MG/3ML) 0.083% nebulizer solution Inhale 3 mL every 6 (six) hours as needed 75 mL 3 04/15/20 24 Active enalapril (Vasotec) 20 MG tabletIndicati ons:Obesity (BMI 30-39.9),Hyper tension, unspecified type,Prediabet es Take 1 tablet (20 mg) by mouth Once per day. 30 tablet 11 05/25/20 24 Active pantoprazole (ProtoNix) 40 MG EC tabletIndicati ons:Panic attack TAKE 1 TABLET BY MOUTH TWICE DAILY IN THE MORNING AND IN THE EVENING DO NOT BREAK, CRUSH, DISSOLVE OR CHEW 180 tablet 1 10/10/20 24 Active Bisacodyl EC 5 MG EC tablet TAKE 2 TABLETS BY MOUTH EVERY DAY NEEDED FOR CONSTIPATION 180 tablet 01/19/20 25 Active naloxone (Narcan) 4 mg/0.1 mL nasal sprayIndicatio ns:Chronic low back pain, unspecified back pain laterality, unspecified whether sciatica present Administer 1 spray (4 mg) into affected nostril(s) if needed for opioid reversal. 2 each 2 02/03/20 25 Active albuterol (Ventolin HFA) 108 (90 Base) MCG/ACT inhaler Inhale 2 puffs every 4 (four) hours if needed for wheezing or shortness of breath. 18 g 3 04/10/20 25 Active fluticasone furoate (Arnuity Ellipta) 100 MCG/ACT inhaler Inhale 1 puff Once per day. Rinse mouth with water after use to reduce aftertaste and incidence of candidiasis. Do not swallow. 1 each 04/10/20 25 2025 Active clonazePAM (KlonoPIN) 1 MG tabletIndicati ons:Anxiety Take 1 tablet (1 mg) by mouth if needed each day for anxiety. TAKE 1 TABLET BY MOUTH EVERY DAY NEEDED FOR ANXIETY 20 tablet 05/02/20 25 Active montelukast (Singulair) 10 MG tablet TAKE 1 TABLET BY MOUTH EVERY DAY 30 tablet 2 07/04/20 25 Active oxyCODONE (Roxicodone) 5 MG immediate release tabletIndicati ons:Chronic pain syndrome Take 1 tablet (5 mg) by mouth every 6 (six) hours if needed for severe pain for up to 28 days. 112 tablet 07/07/20 25 2024 Active FLUoxetine (PROzac) 10 MG capsuleIndicat ions:Anxiety,M oderate episode of recurrent major depressive disorder (CMS/HCC) TAKE 1 CAPSULE BY MOUTH EVERY MORNING 30 capsule 1 07/24/20 25 Active diphenhydrAMIN E (BENADryl) 25 MG capsuleIndicat ions:Hypertens ion, unspecified type TAKE 1 CAPSULE BY MOUTH EVERY 8 HOURS NEEDED FOR ALLERGY 60 capsule 07/25/20 25 Active propranolol (Inderal) 10 MG tabletIndicati ons:Anxiety TAKE 1 TABLET BY MOUTH TWICE DAILY IN THE MORNING AND AT BEDTIME NEEDED FOR ANXIETY 60 tablet 07/25/20 Active Tirzepatide-We ight Management (Zepbound) 2.5 MG/0.5ML solution auto-injector Inject 0.5 mL (2.5 mg) under the skin 1 (one) time per week. 2 mL 07/26/20 25 2024 Active butalbital-ana taminophen-caf feine 50-325-40 MG tabletIndicati ons:Chronic migraine with aura and with status migrainosus, not intractable Take 1-2 tablets by mouth every 6 (six) hours if needed for headaches. 4 tablet 07/18/20 24 2024 montelukast (Singulair) 10 MG tablet Take 1 tablet (10 mg) by mouth Once per day. 30 tablet 2 04/10/20 25 2024 Discontinued FLUoxetine (PROzac) 10 MG capsuleIndicat ions:Anxiety,M oderate episode of recurrent major depressive disorder (CMS/HCC) Take 1 capsule (10 mg) by mouth in the morning. 30 capsule 1 05/02/20 25 2024 Discontinued(R eorder (will not trigger notification to Pharmacy)) oxyCODONE (Roxicodone) 5 MG immediate release tabletIndicati ons:Chronic pain syndrome Take 1 tablet (5 mg) by mouth every 6 (six) hours if needed for severe pain for up to 28 days. Do not start before June 08, 2025. 112 tablet 06/08/20 25 2024 Discontinued(R eorder (will not trigger notification to Pharmacy)) propranolol (Inderal) 10 MG tabletIndicati ons:Anxiety Take 1 tablet (10 mg) by mouth if needed in the morning and at bedtime (Anxiety). 60 tablet 06/29/20 25 2024 Discontinued diphenhydrAMIN E (BENADryl) 25 MG capsuleIndicat ions:Hypertens ion, unspecified type TAKE 1 CAPSULE BY MOUTH EVERY 8 HOURS NEEDED FOR ALLERGIC REACTION. 5 capsule 06/29/20 25 2024 Discontinued phentermine 15 MG capsule Take 1 capsule (15 mg) by mouth before breakfast. 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 Confirmatory lab sent --> pending Assessment & Plan (04/11/2025 4:40 PM EDT): Timeline: - 04/11/25: Initial Group, utox/pill count wnl Osteoarthritis of both knees 01/10/2025 Smoking history 04/15/2024 Chronic back pain 05/14/2023 Overview (05/14/2023): For many years H/o LS surgery in the past Has seen pain clinic, physiatry and rheumatology in the past Assessment & Plan (07/13/2025 8:59 AM EDT): -Good engagement and participation with Group Medical Visit model -Encouraged multifactorial approach to pain control including pharm and non- pharm modalities -Pill count as expected, utox not as expected. See documentation consultant Assessment & Plan (04/11/2025 4:35 PM EDT): -Good engagement and participation with Group Medical Visit model, today was first visit. -Encouraged multifactorial approach to pain control including pharm and non- pharm modalities -UTOX and pill count as expected Fibromyalgia 05/14/2023 Prediabetes 01/09/2023 SOFI (obstructive sleep apnea) 01/09/2023 History of hypothyroidism 01/09/2023 Migraine 11/04/2022 Moderate asthma 11/04/2022 Obesity (BMI 30-39.9) 11/04/2022 Adenomatous polyp of colon 11/28/2020 Periungual wart 05/04/2019 History of cholecystectomy 04/20/2018 Panic attack 07/28/2017 Benign neoplasm of meninges 05/26/2017 Benign paroxysmal positional vertigo 05/26/[address] 02/26/2017 Overview (01/09/2023): Right frontal calcified meningioma stable since 2017 Agoraphobia 09/22/2016 Urinary incontinence 07/23/2016 Moderate episode of recurrent major depressive d isorder 05/22/2016 Hypertensive disorder 05/22/2016 Heartburn 05/22/2016 Resolved Problems Problem Noted Date Diagnosed Date Resolved Date Acute cystitis without hematuria 06/09/2024 07/26/2025 Assessment & Plan (06/09/2024 3:27 PM EDT): Drink plenty of water do not hold urine UA and culture done, patient to be call wit final results Vaginal itching 06/09/2024 07/26/2025 Assessment & Plan (06/09/2024 3:28 PM EDT): BV panel and CG done patient will be contacted with results Cough 11/04/2022 05/14/2023 Vertigo 05/06/2018 07/26/2025 Right upper quadrant pain 02/02/2018 Overview (01/09/2023): s/p cholecystectomy. Follows at [facility] for years. Has fatty liver EGD 08/19--chronic infl at [facility], schatzki ring dilated with tear noted MRI 03/2021--nml CBD, no stircutres, or stones seen, fatty liver colonoscopy 06/19--normal, no polyps, small hemorrhoids noted, bx with melanosis coli CT 12/21-- small umbilical hernia Headache 02/26/2017 05/14/2023 Neoplasm of brain 02/26/2017 05/14/2023 Hypothyroidism 05/22/2016 01/09/2023 Encounters * This document contains information received from the source organization and may not represent a complete record from that organization. Date Type Department Care Team Description 07/26/2025 10:45 AM EDT Office Visit [facility] [address] [place] [phone] Dieter Patterson MD Morbid obesity ([facility]) (Primary Dx); SOFI on CPAP; Osteoarthritis of both knees, unspecified osteoarthritis type 07/26/2025 Travel 07/25/2025 Telephone [facility] [address] [place] [phone] Dieter Patterson MD chart prep 07/25/2025 Refill [facility] [address] [place] [address] Dieter Patterson MD Anxiety 07/24/2025 Refill [facility] [address] [place], [place] [phone] Krissy Smith MD Hypertension, unspecified type; Anxiety 07/24/2025 Refill [facility] [address] [place] [address] Dieter Patterson MD Anxiety; Moderate episode of recurrent major depressive disorder ([facility]) 07/11/2025 9:45 AM EDT Office Visit [facility] [address] [place] [phone] Lisset Feliz, DIRECTOR FOOD SAFETY Chronic low back pain, unspecified back pain laterality, unspecified whether sciatica present (Primary Dx); longterm (current) use of opiate analgesic 07/11/2025 Telephone [facility] [address] [place] [phone] Concepcion Thompson, LEI Abnormal UTOX, BPI & JONATHAN scoring 07/11/2025 Travel 07/07/2025 Refill [facility] [address] [place] [phone] Dieter Patterson MD Chronic pain syndrome 07/02/2025 Refill [facility] [address] [place] [address] Dieter Patterson MD 06/29/2025 Refill [facility] [address] [place] [address] Dieter Patterson MD Anxiety; Hypertension, unspecified type 06/07/2025 Orders Only [facility] [address] [place] [address] NameDieter MD 06/07/2025 Telephone [facility] [address] [place] [address] Concepcion Thompson, RN PA still needed for Clonazepam 06/07/2025 Refill [facility] [address] [place] [address] NameDieter MD Chronic pain syndrome 05/24/2025 Outside Procedure [facility] [address] [place] [address] ZackAndern, OD Presbyopia (Primary Dx) 05/23/2025 Refill [facility] [address] [place] [address] Dieter Patterson MD 05/22/2025 9:00 AM EDT Office Visit [facility] [address] [place] [address] Ander Dixonn, OD Hyperopia of both eyes (Primary Dx) 05/22/2025 Travel 05/22/2025 Telephone [facility] [address] [place] [address] NameDieter MD 05/08/2025 Refill [facility] [address] [place] [address] Dieter Patterson MD Chronic pain syndrome 05/08/2025 Telephone [facility] [address] [place] [phone] Dieter Patterson MD Prior Authorization from Last 3 Months Immunizations Immunization Administration Dates Next Due Influenza Injectable Quadriv alant Preservative Free IIV4 MDCK 11/04/2022,09/12/2020 Influenza injectable quadriv alent IIV4 with preservative 10/03/2019,09/09/2017 Influenza injectable quadriv alent preservative free 11/09/2023,11/12/2021 Influenza, IIV3, injectable 10/09/2015 Influenza, seasonal, injecta ble, preservative free 08/29/2024 Moderna Covid-19 Vaccine 12+ 07/03/2022, 10/16/2021,03/27/2021,02/27 Pneumococcal Polysaccharide PPSV23 01/22/2022 Tdap 09/22/2016 Zoster, Recombinant 07/15/2022,05/13/2022 Family History Medical History Relation Name Comments Leukemia Brother Leukemia Father Uterine cancer Mother Relation Name Status Comments Brother Father Mother Social History Tobacco Use Types Packs/Day Years Used Date Smoking Tobacco: Former Smokeless Tobacco: Never Tobacco Cessation:Counseling Given: Not Answered Alcohol Use Standard Drinks/Week Comments Never 0 [...] Orientation Straight 09/29/2022 10 :29 AM EDT Last Filed Vital Signs Vital Sign Reading Time Taken Comments Blood Pressure 138/74 07/26/2025 10:55 AM EDT Pulse 85 07/26/2025 10:55 AM EDT Temperature 35.9 C (96.6 F) 07/26/2025 10:55 AM EDT Respiratory Rate 14 07/26/2025 10:55 AM EDT Oxygen Saturation 99% 07/26/2025 10:55 AM EDT Inhaled Oxygen Concentration - - Weight 96.2 kg (212 lb) 07/26/2025 10:55 AM EDT Height 154.9 cm (5' 1 ) 07/26/2025 10:55 AM EDT Body Mass Index 40.06 07/26/2025 10:55 AM EDT Plan of Treatment Upcoming Encounters Date Type Department Care Team (Late st Contact Info) Description 09/12/2025 11:30 AM EDT Office Visit [facility] [address] [place] [phone] Name, MD Dieter [address] [place] [phone] 10/10/2025 9:45 AM EST Office Visit [address] [address] Health Maintenance Due Date Last Done Comments CT Colonography 1960 FIT DNA/Cologuard 1960 FIT 1960 FOBT 1960 HIV Screening 1960 Sigmoidoscopy 1960 Hepatitis C Screening 1980 RSV Patients and Patients Aged 60 years or older (1 - Risk 60-74 years 1-dose series) 2022 Pneumococcal Vaccine: 50+ Years (2 of 2 - PCV) 01/22/2023 01/22/2022 COVID-19 Vaccine ( season) 2024 07/03/2022, 10/16/2021, 03/27/2021, Additional history exists Diabetes: Hemoglobin A1C 04/12/20252 024, 08/19/2023, 09/02/2022, Additional history exists Influenza Vaccine (#1) 2025 4, 11/09/2023, 11/04/2022, Additional history exists Alcohol/Substance Use Screening 01/10/2026 01/10/2025 SDOH Screening 01/10/2026 01/10/2025 Mammogram 03/07/2026 03/07/2024, 07/31, 07/29/2021, Additional history exists Depression Screening 03/21/2026 03/21/2025, 03/21/20 Disability Screening 04/10/2026 04/10/2025 Tobacco Screening 07/26/2026 07/26/2025 DTaP/Tdap/Td Vaccines (2 - Td or Tdap) 09/22/2026 09/22/2016 Cervical Cancer Screening 06/04/2027 HPV/Cotest 06/04/2027 06/04/2022 Pap Smear 06/04/2027 06/04/2022 Lipid Panel 09/02/2029 09/02/2024, 10/0 02/2022, 06/28/2021 Colonoscopy 06/05/2031 06/05/2021, 06/05/2021 Colorectal Cancer Screening 06/05/2031 Zoster Vaccines Completed 07/15/2022, 05/13/2022 HIB Vaccines [...] patient's age to complete this topic Meningococcal Vaccine Aged Out No manuel stanford eligible based on patient's age to complete this topic RSV under 20 months Aged Out No longe r eligible based on patient's age to complete this topic Rotavirus Vaccines Aged Out No longer eligible based on patient's age to complete this topic Goals Goal Patient Goal Type Associated Problems Recent Progress Patient-Stated? Author Blood Pressure < 140/90 Blood Pressure 138/74( 025 10:55 AM EDT) No Linos-GambCici mayorga, PharmChantal Procedures Procedure Name Priority Date/Time Associated Diagnosis Comments POCT JESÚS-14 URINE DRUG SCREEN Routine 07/11/2025 10:39 AM EDT termite control representative (current) use of opiate analgesic OXYCODONE SCREEN, URINE Routine 07/11/2025 10:00 AM EDT longterm (current) use of opiate analgesic LIPID PANEL, STANDARD Routine 09/02/2024 9:17 AM EDT Obesity (BMI 30-39.9) Hypertension, unspecified type Prediabetes POCT GLYCATED HEMOGLOBIN, TOTAL Routine 04/12/2024 12:07 PM EDT Prediabetes BI MAMMOGRAM SCREENING TOMOSYNTHESIS BILATERAL Routine 03/07/2024 3:30 PM EDT Encounter for screening mammogram for malignant neoplasm of breast THINPREP IMAGING PAP AND HPV MRNA E6/E7 WITH REFLEX TO HPV 16,18/45 Routine 06/04/2022 9:57 AM EDT HM COLONOSCOPY Routine 06/05/2021 10:43 AM EDT from Last 3 Months or Most Recently Relevant to Health Maintenance Results * (ABNORMAL) POCT JESÚS-14 Urine Drug Screen (07/11/2025 10:39 AM EDT) THC Negative Negative Cocaine Screen, Urine Negative Negative Opiate Screen, Urine Negative Negative Methamphetamine Screen Urine Negative Negative Amphetamine Screen, Urine Positive Negative Benzodiazepines Screen, Urine Negative Negative Barbiturate Screen, Urine Negative Negative Methadone Screen, Urine Negative Negative Buprenophine Screen, Urine Negative Negative TCA, Urine Negative Negative MDMA Urine Negative Negative ng/mL Oxycodone Screen, Urine Negative(A) Negative Phencyclidine (PCP), Urine Negative Negative Propoxyphene, Urine Negative Negative Fentanyl, Urine Negative Negative Urine Urine specimen obtained by clean catch procedure / Unknown 07/11/2025 10:39 AM EDT Concepcion Sanchez RN - 07/11/2025 10:39 AM EDT UTOX cup Lot#[id number] Exp. 09/05/26 Internal Pass Control us Dieter Patterson MD POINT OF CARE TEST ENTER/EDIT OR DERABLES Final Result * (ABNORMAL) Oxycodone Screen, Urine (07/11/2025 10:00 AM EDT) Oxycodone Urine Screen Positive( A) Not Detect ng/mL [facility] Comment:Oxycodone cut-off is 100 ng/mL.Positive results are unconfirmed and should not be used fornon-medical purposes. Urine 07/11/2025 10:0 0 AM EDT 07/11/2025 12:59 PM EDT us Dieter Patterson MD LAB URINE ORDERABLES Final Resul t [facility] [address] [place] [phone] * (ABNORMAL) Lipid Panel, Standard (09/02/2024 9:17 AM EDT) Triglycerides 101 <150 mg/dL [facility] Comment:Desirable Triglyceri de: less than 150 mg/dLBorderline High Triglyceride 150-199 mg/dLHigh Triglyceride: 200-499 mg/dLVery High Triglyceride: greater than or equal to 5OO mg/dL Cholesterol 190 <200 mg/dL [facility] Comment:Desirable Cholestero l: less than 200 mg/dLBorderline High Cholesterol: 200-239 mg/dLHigh Cholesterol: greater than 239 mg/dL LDL Cholesterol Calculated 120(H) <100 mg/dL [facility] Comment:Desirable LDL: less than 100 mg/dLNear Optimal/Above Optimal LDL: 110- 129 mg/dLBorderline High LDL: 130-159 mg/dLHigh LDL: 160-189 mg/dLVery High LDL: greater than or equal to 190 mg/dL HDL Cholesterol 50 >40 mg/dL [facility] Comment:Desirable HDL: great er than 40 mg/dL Note: This HDL assay may give artificially low results in patients with liver disease. Blood Venous blood specimen / Unknown 09/02/2024 9:17 AM EDT 09/02/2024 11:06 AM EDT Dieter Patterson MD LAB BLOOD ORDERABLES Final Resul t [facility] [address] [place] [address] [phone] * POCT HGB A1C (04/12/2024 12:07 PM EDT) Hemoglobin A1C 5.3 4.0 - 6.0 % Blood 04/12/2024 12:0 7 PM EDT Mayelin Zamarripa MD POINT OF CARE DAISY T ENTER/EDIT ORDERABLES Final Result * BI Mammogram Screening Tomosynthesis Bilateral (03/07/2024 3:30 PM EDT) Anatomical Region Laterality Modality Breast Bilateral Mammography 03/07/2024 3:30 PM EDT Narrative 03/13/2024 9:03 PM EDT [address] [place] [address] Mammography Report Signed Patient: Audrey Cintron MR#: [id number] : 1960 Acct:[id number] Age/Sex: 63 / F ADM Date: 03/07/24 Loc: HO.MAMMO Attending Dr: Dieter Patterson MD Ordering Physician: Dieter Patterson MD Results: 1Negative Date of Service: 03/07/24 Follow Up: 1 Year From [facility] Mammogram Procedure(s): MM tomosynthesis screening BI Accession Number(s): [id number] cc: Dieter Patterson MD EXAMINATION: MM SCREENING DIGITAL BREAST TOMOSYNTHESIS, BILATERAL CLINICAL INFORMATION: Screening. Asymptomatic. COMPARISON: Mammography: This study is compared with prior exams dating back to 2018. TECHNIQUE: Digital breast tomosynthesis is performed in both the craniocaudal and mediolateral oblique views along with computer-aided detection (CAD). Synthesized 2D images are generated from the tomosynthesis. FINDINGS: There are scattered areas of fibroglandular density (ACR BI-RADS breast composition Category b). There are no significant masses, abnormal calcifications, or other abnormalities. MM/MM tomosynthesis screening BI IMPRESSION: No mammographic evidence of malignancy. ASSESSMENT: BI-RADS BI-RADS 1 - Negative RECOMMENDATION: Routine annual mammography screening. 1 year F/U This examination should not preclude the clinical evaluation of a suspicious palpable abnormality. This patient's information was entered into a reminder system with a target due date for their next mammogram. Dictated By: Mirtha Gillette MD Signed By: <Electronically signed by Mirtha Gillette MD in OV> 03/13/24 2100 DD/ 1530 TD/TT: Debarker Operator: Procedure Note Donotuseinterpreter, Image - 03/13/2024 [facility] [address] [place] [address] Mammography Report Signed Patient: Audrey Cintron MMR#: [id number] : 1960cct:[id number] Age/Sex: 63 / FADM Date: 03/07/24 Loc: HOGeriMAMMO Attending Dr: Dieter Patterson MD Ordering Physician: Dieter Pattersonults: 1Negative Date of Service: 03/07/24Follow Up: 1 Year From [facility] Mammogram Procedure(s): MM tomosynthesis screening BI Accession Number(s): [id number] cc: Dieter Patterson MD EXAMINATION: MM SCREENING DIGITAL BREAST TOMOSYNTHESIS, BILATERAL CLINICAL INFORMATION: Screening. Asymptomatic. COMPARISON: Mammography: This study is compared with prior exams dating back to 2018. TECHNIQUE: Digital breast tomosynthesis is performed in both the craniocaudal and mediolateral oblique views along with computer-aided detection (CAD). Synthesized 2D images are generated from the tomosynthesis. FINDINGS: There are scattered areas of fibroglandular density (ACR BI-RADS breast composition Category b). There are no significant masses, abnormal calcifications, or other abnormalities. MM/MM tomosynthesis screening BI IMPRESSION: No mammographic evidence of malignancy. ASSESSMENT: BI-RADS BI-RADS 1 - Negative RECOMMENDATION: Routine annual mammography screening. 1 year F/U This examination should not preclude the clinical evaluation of a suspicious palpable abnormality. This patient's information was entered into a reminder system with a target due date for their next mammogram. Dictated By: Mirtha Gillette MD Signed By: <Electronically signed by Mirtha Gillette MD in OV> 03/13/24 2100 DD/ 1530 TD/TT: Debarker Operator: Dieter Patterson MD IM BI PROCEDURES Edited Result - Final * THINPREP TIS PAP AND HPV mRNA E6/E7 WITH REFLEX TO HPV 16,18/45 (06/04/2022 9:57 AM EDT) Clinical Information: None given [facility] COMMENT SEE COMMENT [facility] Comment: EXPLANATORY NOTE: The Pap is a screening test for cervical cancer. It is not a diagnostic test and is subject to false negative and false positive results. It is most reliable when a satisfactory sample, regularly obtained, is submitted with relevant clinical findings and history, and when the Pap result is evaluated along with historic and current clinical information. COMMENT: This Pap test has been evaluated with computer assisted technology. [facility] Cytotechnologis t: SEE COMMENT [facility] Comment: WAC, CT(ASCP) CT screening location: [place] [address] HPV nRNA E6/E7 Not Detected Not Detected [facility] Comment: Methodology: Social Sciences Department Chair-Mediated Amplification This assay detects E6/E7 viral messenger RNA (mRNA) from 14 high-risk HPV types (16,18,31,33,35,39,45,51,52,56,58,59,66,68). Cervical sources are required for HPV testing. If a vaginal source from a patient who has had a total hysterectomy with removal of cervix was submitted, please contact the testing laboratory for alternative testing options. For additional information, please refer to http://education.Sensorly/faq/ZSL811o5 (This link if provided for information/ educational purposes only.) Interpretation/ Result: Negative for intraepithelial lesion or malignancy. [facility] LMP: 43 [facility] Prev. BX: NONE GIVEN [facility] Prev. PAP: 09/2018 [facility] SOURCE: None given [facility] Statement Of Adequacy: SEE COMMENT [facility] Comment: Satisfactory for evaluation. Endocervical/transformation zone component present. 06/04/2022 9:57 AM EDT Ashwini Sommer [facility] PATHOLOGY ORDERABLES Final Result [facility] [address] * Colonoscopy (06/05/2021 10:43 AM EDT) Colonoscopy Normal Normal us Historical Provider HEALTH MAINTENANCE Edited Result - Final from Last 3 Months or Most Recently Relevant to Health Maintenance Insurance C3 Care Teams Denture Laboratory Technician Relationship Specialty Start Date End Date Name, MD Dieter [address] [place] [address] PCP - General Family Medicine 05/22/16
--- OUTSIDE RECORDS SUMMARY | 2025-08-01 08:52 | XMS_ITS | Encounter Summary ---
Author Organization [employer] Address [address] [place] [address] 7 [place] [address] Care Team Providers Care Charge Accounts Audit Clerk Name Role Phone Name, Dieter HERNANDEZ Primary Care Provider [phone] Reason for Visit * Reason Onset Date Comments Referral 2023 Rheumatology Encounter Details Date Type Department Care Team ([facility] st Contact Info) Description 2023 Telephone [facility] [address] [place] [address] Name, MD Dieter [address] [place] [address] Referral (Rheumatology/) Social History Tobacco Use Types Packs/Day Years Used Date Smoking Tobacco: Former Cigarettes Q uit: 2010 Smokeless Tobacco: Never Alcohol Use Standard Drinks/Week Comments Never 0 (1 standard drink = 0.6 oz pur e alcohol) Depression Answer Date Recorded Patient Health Questionnaire-9 Score 6 05/13/2023 Depression Answer Date Recorded Patient Health Questionnaire-2 Score 2 05/13/2023 Comments Unknown Sex and Gender Information Value Date Recorded Sex Assigned at Female 09/29/2022 10:29 AM EDT Legal Sex Female 10:29 AM EDT Gender Identity Female 09/29/2022 10:29 AM EDT Sexual Orientation Straight 09/29/2022 10 :29 AM EDT documented as of this encounter Miscellaneous Notes * Telephone Encounter - Calista Rogers RN - 2023 10:28 AM EDT Please review message below upon your return. Rheumatology office PLASTIC SEWER Toya English is leaving and pt is requesting a sales support technician in a [place] location. * Telephone Encounter - Rosa cSott - 2023 10:03 AM EDT Tc from patient calling in regards to rheumatology referral. States specialist has left office and nurse is also leaving soon. Patient states she goes to [facility] but will prefer to get referred in the future to [place]. Product Manager Financial Services doesn't see referral on [facility] nor [facility]. documented in this encounter Plan of Treatment Upcoming Encounters Date Type Department Care Team (Late st Contact Info) Description 09/12/2025 11:30 AM EDT Office Visit [facility] [address] [place] [address] Name, MD Dieter [address] [place] [address] 10/10/2025 9:45 AM EST Office Visit [address] [address] documented as of this encounter Visit Diagnoses Not on filedocumented in this encounter Additional Health Concerns Assessment Noted Time PHQ-9 Depression Total Score: 6 05/13/20 23 4:04 PM EDT documented as of this encounter Care Teams Charge Accounts Audit Clerk Relationship Specialty Start Date End Date Name, MD Dieter [address] [place] [address] PCP - General Family Medicine 05/22/16 documented as of this encounter
--- OUTSIDE RECORDS SUMMARY | 2025-08-01 08:52 | XMS_ITS | Encounter Summary ---
Author Organization [employer] Address [address] [place] [address] 7t [place] [address] Care Team Providers Care Wire Coiner Name Role Phone Name, Dieter HERNANDEZ Primary Care Provider [phone] Reason for Visit * Reason Comments Med Change Request Encounter Details Date Type Department Care Team ([facility] Contact Info) Description 03/16/2023 Refill [facility] CHC MED & PEDS [address] [place], [place] [phone] NameDieter MD [address] [place], [place] [phone] Diabetes mellitus type 2 in obese (CMS/HCC) Social History Tobacco Use Types Packs/Day Years [...] suspected to have Coronavirus/COVID-19? No / Unsure 02/26/2023 8:47 AM EDT documented as of this encounter Plan of Treatment Upcoming Encounters Date Type Department Care Team ([facility] Contact Info) Description 09/12/2025 11:30 AM EDT Office Visit [facility] MEDICINE [address] [place] [phone] Name, MD Dieter [address] [facility] [place] [address] 10/10/2025 9:45 AM EST Office Visit [facility] [place] [address] documented as of this encounter Visit Diagnoses Diagnosis Diabetes mellitus type 2 in obese Type II or unspecified type diabetes mellitus without mention of complication, not stated as uncontrolled documented in this encounter Care Teams Wire Coiner Relationship Specialty Start Date End Date Name, MD Dieter [facility] [place] [address] PCP - General Family Medicine 05/22/16 documented as of this encounter
--- OUTSIDE RECORDS SUMMARY | 2025-08-01 08:52 | XMS_ITS | Encounter Summary ---
Author Organization [employer] Address [address] [facility] 7t [place] [address] Care Team Providers Care Professor Of Kinesiology Name Role Phone Name, Dieter HERNANDEZ Primary Care Provider [phone] Reason for Visit * Reason Comments Med Refill Encounter Details Date Type Department Care Team (Late st Contact Info) Description 05/30/2024 Refill [facility] CHC MED & PEDS [address] [place], [place] [phone] Name, MD Dieter [address] [place] [address] Panic attack Social History Tobacco Use Types [...] Description 09/12/2025 11:30 AM EDT Office Visit [facility] MEDICINE [address] [place] [address] Name, MD Dieter [address] [place] [address] 10/10/2025 9:45 AM EST Office Visit [address] [address] documented as of this encounter Goals Goal Patient Goal Type Associated Problems Recent Progress Patient-Stated? Author Blood Pressure < 140/90 Blood Pressure 138/74( 025 10:55 AM EDT) No Cici Cotterll, PharmD documented as of this encounter Visit Diagnoses Diagnosis Panic attack Panic disorder without agoraphobia documented in this encounter Additional Health Concerns Assessment Noted Time PHQ-9 Depression Total Score: 11 024 2:12 PM EDT documented as of this encounter Care Teams Professor Of Kinesiology Relationship Specialty Start Date End Date Name, MD Dieter [address] [place] [address] PCP - General Family Medicine 05/22/16 documented as of this encounter
--- OUTSIDE RECORDS SUMMARY | 2025-08-01 08:52 | XMS_ITS | Encounter Summary ---
Author Organization [employer] Address [address] [facility] 7 [place] [address] Care Team Providers Care Bedspread Cutter Hand Name Role Phone Name, Dieter HERNANDEZ Primary Care Provider [phone] Reason for Visit * Reason Onset Date Comments Prior Authorization 09/20/2024 Encounter Details Date Type Department Care Team ([facility] st Contact Info) Description 09/20/2024 Telephone [facility] MEDICINE [address] [place] [address] Name, MD Dieter [address] [place] [address] Prior Authorization Social History Tobacco Use Types [...] encounter Miscellaneous Notes * Telephone Encounter - Jennifer Ramon LPN - 09/26/2024 2:04 PM EDT Medication was sent to [facility] on 09/09/24. * Telephone Encounter - Dennis Phipps - 09/20/2024 3:37 PM EDT TC from pt requesting medication refill. Medications needing refill : Semaglutide-Weight Management (Wegovy) 1 MG/0.5ML To be sent to: [facility] documented in this encounter Plan of Treatment Upcoming Encounters Date Type Department Care Team (Late st Contact Info) Description 09/12/2025 11:30 AM EDT Office Visit [facility] MEDICINE [address] [place] [address] Name, MD Dieter [address] [place] [address] 10/10/2025 9:45 AM EST Office Visit [facility] MEDICINE [address] [place] [address] documented as of this encounter Goals Goal Patient Goal Type Associated Problems Recent Progress Patient-Stated? Author Blood Pressure < 140/90 Blood Pressure 138/74( 025 10:55 AM EDT) No Cici Cottrell, LaurieD documented as of this encounter Visit Diagnoses Not on filedocumented in this encounter Additional Health Concerns Assessment Noted Time PHQ-9 Depression Total Score: 11 024 2:12 PM EDT documented as of this encounter Care Teams Bedspread Cutter Hand Relationship Specialty Start Date End Date Name, MD Dieter [address] [place] [address] PCP - General Family Medicine 05/22/16 documented as of this encounter
--- OUTSIDE RECORDS SUMMARY | 2025-08-01 08:53 | XMS_ITS | Encounter Summary ---
Author Organization [employer] Address 75 [facility] 7t [place] [address] Care Team Providers Care Side Framer Name Role Phone Name, Dieter HERNANDEZ Primary Care Provider [phone] Encounter Details Date Type Department Care Team ([facility] Contact Info) Description 05/22/2025 Telephone [facility] CHC MED & PEDS [address] [place], [place] [phone] Name, MD Dieter [address] [place] [address] Social History Tobacco Use Types Packs/Day Years [...] Description 09/12/2025 11:30 AM EDT Office Visit [address] [address] Name, MD Dieter [address] [place] [address] 10/10/2025 9:45 AM EST Office Visit [address] [address] documented as of this encounter Goals Goal [...] documented as of this encounter Care Teams Side Framer Relationship Specialty Start Date End Date Name, MD Dieter [address] [place] [address] PCP - General Family Medicine 05/22/16 documented as of this encounter
--- OUTSIDE RECORDS SUMMARY | 2025-08-01 08:53 | XMS_ITS | Encounter Summary ---
Author Organization [employer] Address [address] [facility] 7t [place] [address] Care Team Providers Care Prepress Proofer Name Role Phone Name, Dieter HERNANDEZ Primary Care Provider [phone] Reason for Visit * Reason Onset Date Comments Medication Question 12/11/2023 Encounter Details Date Type Department Care Team ([facility] st Contact Info) Description 12/11/2023 Telephone [facility] MEDICINE [address] [place] [address] Name, MD Dieter [address] [place] [address] Medication Question Social History Tobacco Use Types Packs/Day Years Used Date Smoking Tobacco: Former Smokeless Tobacco: Never Alcohol Use Standard Drinks/Week Comments Never 0 (1 standard drink = 0.6 oz pur e alcohol) Depression Answer Date Recorded Patient Health Questionnaire-9 Score 6 05/13/2023 Housing Stability Answer Date Recorded What is your housing situation today? I have purvi ddoson 09/14/[address] you li [...] encounter Miscellaneous Notes * Telephone Encounter - Ana María Godoy RN - 12/17/2023 10:38 AM EST T?C to pt. For below message through Ideapod id - [id number] pt. Is all set , No question right now. Advised to give call to [facility] if any question or concerns. * Telephone Encounter - Maryan Stewart - 12/11/2023 11:53 AM EST Tc from pt returning nurse call. Please contact pt at [phone] (Maltese) * Telephone Encounter - Ana María Godoy RN - 12/11/2023 10:47 AM EST T/C to [phone] for below message, No answer. LVM to call back on [phone]. * Telephone Encounter - Guero Da Silva - 12/11/2023 10:21 AM EST Tc from pt stating Name changed medication oxyCODONE (Roxicodone) 5 MG immediate release tablet to Percocet 5mg. If any questions please contact pt at [phone]. documented in this encounter Plan of Treatment Upcoming Encounters Date Type Department Care Team (Late st Contact Info) Description 09/12/2025 11:30 AM EDT Office Visit [facility] MEDICINE [address] [place] [address] Name, MD Dieter [address] [place] [address] 10/10/2025 9:45 AM EST Office Visit [address] [address] documented as of this encounter Goals Goal [...] documented as of this encounter Care Teams Prepress Proofer Relationship Specialty Start Date End Date Name, MD Dieter [address] [place] [address] PCP - General Family Medicine 05/22/16 documented as of this encounter
--- OUTSIDE RECORDS SUMMARY | 2025-08-01 08:53 | XMS_ITS | Encounter Summary ---
Author Organization [employer] Address 75 [facility] 7t [place] [address] Care Team Providers Care Product Engineering Manager Name Role Phone Name, Dieter HERNANDEZ Primary Care Provider [phone] Reason for Visit * Reason Comments Med Refill Encounter Details Date Type Department Care Team (Late st Contact Info) Description 03/04/2024 Refill [facility] CHC MED & PEDS [address] [place], [place] [phone] Kristine Mondragon MD [address] [place] [address] Type 2 diabetes mellitus with obesity ([facility]/HCC) ([facility]) Social History Tobacco Use Types Packs/Day Years [...] Description 09/12/2025 11:30 AM EDT Office Visit [facility] MEDICINE [address] [place] [address] Name, MD Dieter [address] [place] [address] 10/10/2025 9:45 AM EST Office Visit [address] [address] documented as of this encounter Goals Goal Patient Goal Type Associated Problems Recent Progress Patient-Stated? Author Blood Pressure < 140/90 Blood Pressure 138/74( 025 10:55 AM EDT) No Cici Cottrell, PharmD documented as of this encounter Visit Diagnoses Diagnosis Type 2 diabetes mellitus with obesity (CMS/HCC) (CMS/HCC) documented in this encounter Additional Health Concerns Assessment Noted Time PHQ-9 Depression Total Score: 6 05/13/20 23 4:04 PM EDT documented as of this encounter Care Teams Product Engineering Manager Relationship Specialty Start Date End Date Name, MD Dieter [address] [place] [address] PCP - General Family Medicine 05/22/16 documented as of this encounter
[2025-08-01 12:39] LABS: Alanine Aminotransferase 30 U/L (0-31); Albumin Level 4.1 g/dL (3.5-5.0); Alkaline Phosphatase 95 U/L (39-117); Anion Gap 14 (12-20); Aspartate Amino Transferase 29 U/L (5-31); Blood Urea Nitrogen 16 mg/dL (9-16); Calcium 8.8 mg/dL (8.4-10.2); Carbon Dioxide 24 mmol/L (22-29); Chloride 109 mmol/L (96-108); Cholesterol 207 mg/dL (<200); Estimated Glomerular Filt Rate > 60; HDL Cholesterol 53 mg/dL (>40); Potassium 3.7 mmol/L (3.3-5.1); Sodium 143 mmol/L (135-145); Total Protein 7.3 g/dL (6.5-8.0); Triglycerides 95 mg/dL (<150)
== END 2025-08-01 08:17 | disposition home or self-care (01) ==
LOC: HO.HHCL 08:16
PROVIDERS: PCP Internal Medicine Geriatric Medicine; Visit Provider Internal Medicine Geriatric Medicine
DX: E66.812 Obesity, class 2 (principal); Z68.39 Body mass index [BMI] 39.0-39.9, adult; J45.40 Moderate persistent asthma, uncomplicated
CPT/HCPCS: 36415; 80053; 80061; 84443

== ENCOUNTER 2025-10-10 17:38 | Outpatient (REF) | payer MEDICAID, SELFPAY ==
--- OUTSIDE RECORDS SUMMARY | 2025-10-10 09:45 | XMS_ITS | Encounter Summary ---
Author Organization [employer] Address 75 [facility] 7t [place] [address] Care Team Providers Care Teacher Of The Emotionally Disturbed Name Role Phone Name, Dieter HERNANDEZ Primary Care Provider [phone] Encounter Details Date Type Department Care Team ([facility] st Contact Info) Description 10/10/2025 9:45 AM EST Office Visit [facility] [address] [place] [address] Lisset Feliz, SARITHA [address] [place] [address] Chronic low back pain, unspecified back pain laterality, unspecified whether sciatica present (Primary Dx); assisted (current) use of opiate analgesic Social History Tobacco Use Types Packs/Day Years [...] AM EDT documented as of this encounter Progress Notes * Lisset Feliz, NOTARY PUBLIC - 10/10/2025 9:45 AM EST Subjective: Audrey Rogers is a 65 y.o. female w/ PMH SOFI, DJD of knees, who presents to the office for -Chronic Pain Clinic Group visits. Initial Group visit: 04/11/25 Group Topic: Self-care massage Chronic Pain History: Associated Diagnosis: chronic back pain (hx of LS surgery) Relevant Imagin05/14/23: XR thoracic spine demonstrated mild degenerative changes 06/19/21: MRI thoracic spine Lower lumbar surgical sequela and multilevel cervical spine degenerative disease includes C4-C5 level leftward disc disease with cervical spinal cord impingement. Well-maintained thoracic kyphosis. Thoracic vertebral bodies normal in height and alignment. Multilevel overall mild thoracic degenerative disc desiccation. Mild T9-T10 anterior endplate bone marrow edema signal. No focal suspicious bone marrow lesion. Nonspecific multilevel primarily right-sided anterior endplate osteophytosis/enthesopathy may be degenerative and/or secondary to underlying spondyloarthropathy. Overall well-maintained thoracic neural foramina with overall mild mild lower thoracic facet joint hypertrophy. Overall mild thoracic degenerative disc disease includes T6-T7 level with partial adjacent ventral thecal sac effacement. Thoracic spinal cord caliber and signal intensity within normal limits. Conus tip normal in location and configuration at the L1 level. Bilateral thoracic perineural sheath cysts by noncontrast MRI analysis includes up to approximately9 mm rounded right T8-T9 level perineural sheath cyst. Current pharm tx: oxycodone-APAP 5mg Q6H (also rx clonazepam 0.5mg daily PRN) Medication: States taking medication as prescribed. Non-pharm tx: acupuncture, massage Related Specialists: Following with DOM Winter. Previously with pain clinic, physiatry, and rheumatology Review of Systems Constitutional: Negative for chills and fever. Respiratory: Negative for wheezing. Cardiovascular: Negative for chest pain and palpitations. Gastrointestinal: Negative for diarrhea and vomiting. Musculoskeletal: Positive for arthralgias. Physical Exam Constitutional: Appearance: Normal appearance. Pulmonary: Effort: Pulmonary effort is normal. Neurological: Mental Status: She is alert and oriented to person, place, and time. Psychiatric: Mood and Affect: Mood normal. Behavior: Behavior normal. Problem List Items Addressed This Visit Mental Health assisted (current) use of opiate analgesic Overview Medication: Percocet (5/325mg) Q6H PRN Indication: chronic back pain s/p LS surgery Last ASSISTANT FRONT DESK MANAGER Agreement: 02/02/25 Tier II (ASSISTANT FRONT DESK MANAGER visit every 3 months) Current Assessment & Plan Timeline: - 04/11/25: Initial Group, utox/pill count wnl - 07/11/25: Group - pill count as expected, utox confirmatory as expected - 10/10/25: Group - pill count as expected, utox neg oxy --> confirmatory sent Musculoskeletal and Injuries Chronic back pain - Primary Overview For many years H/o LS surgery in the past Has seen pain clinic, physiatry and rheumatology in the past Current Assessment & Plan -Good engagement and participation with Group Medical Visit model -Encouraged multifactorial approach to pain control including pharm and non- pharm modalities -Pill count as expected, utox not as expected --> negative for oxy. Confirmatory lab sent. See call center operations manager Relevant Orders Oxycodone Screen, Urine POCT JESÚS-14 Urine Drug Screen (Completed) Follow up: 1-3 months for Group Chronic Pain Clinic. Follow up as scheduled with PCP, sooner as needed. * Concepcion Thompson RN - 10/10/2025 9:45 AM EST ASSISTANT FRONT DESK MANAGER leather cleaner: PDMP reviewed today. Last fill date: 10/06/25 Oxycodone count was 96, anticipated 94 to be remaining. Clonazepam count was 18, anticipated 15 to be remaining. Pt reports last oxycodone taken was 10/09/25. Last Clonazepam taken was greater than 72 hours ago. UTOX completed. Negative for all substances: AMP, BAR, BUP, BZO, MARTHA, FTY, MDMA, MET, MOP, MTD, OXY, PCP, TCA, THC. UTOX not as expected. UTOX sent out for OXY confirmation. PCP aware. documented in this encounter Miscellaneous Notes * Assessment & Plan Note - SARITHA Soria - 10/10/2025 1:58 PM ESTAssociated Problem(s): assisted (current) use of opiate analgesic Timeline: - 04/11/25: Initial Group, utox/pill count wnl - 07/11/25: Group - pill count as expected, utox confirmatory as expected - 10/10/25: Group - pill count as expected, utox neg oxy --> confirmatory sent * Assessment & Plan Note - SARITHA Soria - 10/10/2025 1:57 PM ESTAssociated Problem(s): Chronic back pain -Good engagement and participation with Group Medical Visit model -Encouraged multifactorial approach to pain control including pharm and non- pharm modalities -Pill count as expected, utox not as expected --> negative for oxy. Confirmatory lab sent. See call center operations manager documented in this encounter Plan of Treatment Upcoming Encounters Date Type Department Care Team (Late st Contact Info) Description 01/09/2026 9:45 AM EST Office Visit [facility] MED[facility]INE [address] [place] [address] Scheduled Orders Name Type Priority Associated Diagnoses Orde r Schedule Oxycodone Screen, Urine Lab Routine Chronic low back pain, unspecified back pain laterality, unspecified whether sciatica present Ordered: 10/10/2025 documented as of this encounter Goals Goal Patient Goal Type Associated Problems Recent Progress Patient-Stated? Author Blood Pressure < 140/90 Blood Pressure 122/68( 025 11:54 AM EDT) No Linos-Cici Miranda, PharmD documented as of this encounter Procedures Procedure Name Priority Date/Time Associated Diagnosis Comments POCT JESÚS-14 URINE DRUG SCREEN Routine 10/10/2025 10:04 AM EST Chronic low back pain, unspecified back pain laterality, unspecified whether sciatica present documented in this encounter Results * (ABNORMAL) POCT JESÚS-14 Urine Drug Screen (10/10/2025 10:04 AM EST) THC Negative Negative Cocaine Screen, Urine Negative Negative Opiate Screen, Urine Negative Negative Methamphetamine Screen Urine Negative Negative Amphetamine Screen, Urine Negative Negative Benzodiazepines Screen, Urine Negative Negative Comment:ASSISTANT FRONT DESK MANAGER pt, last took 72 hours ago Barbiturate Screen, Urine Negative Negative Methadone Screen, Urine Negative Negative Buprenophine Screen, Urine Negative Negative TCA, Urine Negative Negative MDMA Urine Negative Negative ng/mL Oxycodone Screen, Urine Negative Negative Comment:ASSISTANT FRONT DESK MANAGER pt, last took Phencyclidine (PCP), Urine Negative Negative Propoxyphene, Urine Negative Negative Fentanyl, Urine Negative Negative Urine Urine specimen obtained by clean catch procedure / Unknown 10/10/2025 10:04 AM EST Concepcion Sanchez RN - 10/10/2025 10:04 AM EST UTOX cup Lot#[id number] Exp. 10/30/26 Internal Pass Control Lisset Feliz NOTARY PUBLIC POINT OF CARE TEST ENTER/EDIT ORDERABLES Final Result documented in this encounter Visit Diagnoses Diagnosis Chronic low back pain, unspecified back pain laterality, unspecified whether sciatica present- Primary intermodal customer service (current) use of opiate analgesic documented in this encounter Additional Health Concerns Assessment Noted Time PHQ-9 Depression Total Score: 7 03/21/20 25 11:34 AM EDT documented as of this encounter Care Teams Teacher Of The Emotionally Disturbed Relationship Specialty Start Date End Date Name, MD Dieter [address] [place] [address] PCP - General Family Medicine 05/22/16 documented as of this encounter
--- OUTSIDE RECORDS SUMMARY | 2025-10-10 17:42 | XMS_ITS | Encounter Summary ---
Author Organization [employer] Address [address] [facility] [address] [place] [address] Care Team Providers Care Organic Lab Worker Name Role Phone Name, Dieter HERNANDEZ Primary Care Provider [phone] Reason for Visit * Reason Onset Date Comments PA still needed for Clonazepam 06/07/2025 Encounter Details Date Type Department Care Team ([facility] st Contact Info) Description 06/07/2025 Telephone [facility] MEDICINE [address] [place] [address] Concepcion Thompson RN PA still needed for Clonazepam Social History Tobacco Use Types Packs/Day Years [...] AM EDT documented as of this encounter Functional Status * Over the last 2 weeks, how often have you been bothered by any of the following problems? Question Answer Date of Assessment Author Feeling nervous, anxious, or on edge 2 06/30 11:18 AM VICTORINOT Concepcion Thompson RN Not being able to stop or co ntrol worrying 2 07/11/2025 11:18 AM Concepcion Baltazar R N Worrying too much about diff erent things 3 07/11/2025 11:18 AM Concepcion Baltazar R N Trouble relaxing 3 07/11/2025 11:18 AM Concepcion Baltazar RN Being so restless that it is hard to sit still 2 07/11/2025 11:18 AM Concepcion Baltazar R N Becoming easily annoyed or irritable 3 06/30 11:18 AM Concepcion Baltazar RN Feeling afraid as if somethi ng awful might happen 3 07/11/2025 11:18 AM Concepcion Baltazar R N JONATHAN-7 Total Score 18 07/11/2025 11:18 AM Concepcion Baltazar RN documented as of this encounter Miscellaneous Notes * Telephone Encounter - Cat Birmingham - 10/06/2025 9:54 AM EST Approval for Clonazepam received and sent to [facility]. Industrial Trainer called [facility] pharmacy/Nayeli who confirmed prescription went through successfully and will be filled/pt notified. * Telephone Encounter - Cat Birmingham - 10/05/2025 11:49 AM EST SANTIAGO thomas resubmitted to pcp for review and signature via [employer]. * Telephone Encounter - Concepcion Thompson RN - 10/05/2025 11:01 AM EST Patient calling for Clonazepam refill. TC to [facility] pharmacy, spoke with Bhavana. Clonazepam prescription sent 05/02/25 has still not been filled, it continues to read needs prior Auth. * Telephone Encounter - Cat Birmingham - 06/07/2025 12:03 PM EDT SANTIAGO thomas previously sent to prescriber, today reassigned to pcp for review and signature. Once signed, will be faxed to [facility] and sent to scan. * Telephone Encounter - Concepcion Thompson RN - 06/07/2025 11:42 AM EDT TC to [facility] pharmacy, spoke with Alem. She stated PA still needed for Clonazepam RX. Per pts medical record 05/08/25 note stated PA was generated and sent to PCP for signature. documented in this encounter Plan of Treatment Upcoming Encounters Date Type Department Care Team (Late st Contact Info) Description 01/09/2026 9:45 AM EST Office Visit [facility] MEDICINE [address] [place] [address] documented as of this encounter Goals Goal Patient Goal Type Associated Problems Recent Progress Patient-Stated? Author Blood Pressure < 140/90 Blood Pressure 122/68( 025 11:54 AM EDT) No Cici Cottrell, LaurieD documented as of this encounter Visit Diagnoses Not on filedocumented in this encounter Additional Health Concerns Assessment Noted Time PHQ-9 Depression Total Score: 7 03/21/20 25 11:34 AM EDT documented as of this encounter Care Teams Organic Lab Worker Relationship Specialty Start Date End Date Name, MD Dieter [address] [place] [address] PCP - General Family Medicine 05/22/16 documented as of this encounter
--- OUTSIDE RECORDS SUMMARY | 2025-10-10 17:42 | XMS_ITS | Encounter Summary ---
Author Organization [employer] Address [address] [facility] 7[address] [place] [address] Care Team Providers Care Telephone Clerk Name Role Phone Name, Dieter HERNANDEZ Primary Care Provider Encounter Details Date Type Department Care Team (Latest Contact Info) Description 10/10/2025 Travel Social History Tobacco Use Types Packs/Day Years [...] Description 01/09/2026 9:45 AM EST Office Visit [facility] MEDICINE [address] [place] [address] documented as of this encounter Goals Goal Patient Goal Type Associated Problems Recent Progress Patient-Stated? Author Blood Pressure < 140/90 Blood Pressure 122/68( 025 11:54 AM EDT) No Cici Cottrell, PharmD documented as of this encounter Visit Diagnoses Not on filedocumented in this encounter Additional Health Concerns Assessment Noted Time PHQ-9 Depression Total Score: 7 03/21/20 25 11:34 AM EDT documented as of this encounter Care Teams Telephone Clerk Relationship Specialty Start Date End Date Name, MD Dieter [address] [place] [address] PCP - General Family Medicine 05/22/16 documented as of this encounter
--- OUTSIDE RECORDS SUMMARY | 2025-10-10 17:42 | XMS_ITS | Encounter Summary ---
Author Organization [employer] Address [address] [facility] 7 [place] [address] Care Team Providers Care Wood Car Builder Name Role Phone Name, Dieter HERNANDEZ Primary Care Provider [phone] Reason for Visit * Reason Onset Date Comments Prior Authorization 09/20/2024 Encounter Details Date Type Department Care Team ([facility] st Contact Info) Description 09/20/2024 Telephone [facility] MEDICINE [address] [place] [address] Name, MD Dieter [address] [place] [address] Prior Authorization Social History Tobacco Use Types [...] 2:04 PM EDT Medication was sent to [facility] Pharmacy on 09/09/24. * Telephone Encounter - Dennis Phipps - 09/20/2024 3:37 PM EDT TC from pt requesting medication refill. Medications needing refill : Semaglutide-Weight Management (Wegovy) 1 MG/0.5ML To be sent to: [facility] documented in this encounter Plan of Treatment Upcoming Encounters Date Type Department Care Team (Late st Contact Info) Description 01/09/2026 9:45 AM EST Office Visit [facility] MEDICINE [address] [place] [address] documented as of this encounter Goals Goal [...] documented as of this encounter Care Teams Wood Car Builder Relationship Specialty Start Date End Date Name, MD Dieter [address] [place] [address] PCP - General Family Medicine 05/22/16 documented as of this encounter
--- OUTSIDE RECORDS SUMMARY | 2025-10-10 17:42 | XMS_ITS | Encounter Summary ---
Author Organization [employer] Address [address] [place] [address] 7 [place] [address] Care Team Providers Care Hostess Name Role Phone Name, Dieter HERNANDEZ Primary Care Provider [phone] Reason for Visit * Reason Onset Date Comments Referral 2023 Rheumatology Encounter Details Date Type Department Care Team ([facility] st Contact Info) Description 2023 Telephone [facility] MEDICINE [address] [place] [address] Name, MD Dieter [address] [place] [address] Referral (Rheumatology/) Social History Tobacco Use Types [...] message below upon your return. Rheumatology office SALES DEVELOPMENT ASSOCIATE Toya English is leaving and pt is requesting a communications officer in a [facility] location. * Telephone Encounter - Rosa Fariasnez - 2023 10:03 AM EDT Tc from patient calling in regards to rheumatology referral. States specialist has left office and nurse is also leaving soon. Patient states she goes to [facility] but will prefer to get referred in the future to [facility]. Surgical Oncologist doesn't see referral on [employer] nor [employer] documented in this encounter Plan of Treatment Upcoming Encounters Date Type Department Care Team (Late st Contact Info) Description 01/09/2026 9:45 AM EST Office Visit [facility] MEDICINE [address] [place] [address] documented as of this encounter Visit Diagnoses Not on filedocumented in this encounter Additional Health Concerns Assessment Noted Time PHQ-9 Depression Total Score: 6 05/13/20 23 4:04 PM EDT documented as of this encounter Care Teams Hostess Relationship Specialty Start Date End Date Name, MD Dieter [address] [place] [address] PCP - General Family Medicine 05/22/16 documented as of this encounter
--- OUTSIDE RECORDS SUMMARY | 2025-10-10 17:42 | XMS_ITS | Clinical Summary ---
Author Organization [facility] Address [address] [place] [address] Phone Care Team Providers Care Weight Inspector Name Role Phone Name, Dieter HERNANDEZ Primary Care Provider [phone] Allergies Active Allergy Reactions Criticality Noted Date Comments Aspirin 11/15/2024 Codeine 11/15/2024 Cortisone 11/15/2024 Iodine 09/09/2025 Sodium 11/15/2024 Medications gabapentin (NEURONTIN) 300 mg [...] Severe obesity (BMI 35.0-39. 9) with comorbidity ([facility] V24, [facility] V28) 01/25/2025 Acute cystitis without hematuria 06/09/2024 [...] Panic attack 07/28/2017 Benign neoplasm of meninges ([facility] V24, [facility]/ C V28) 05/26/2017 Benign paroxysmal positional vertigo 05/26/[address] 02/26/2017 Overview (12/06/2024): Right frontal calcified meningioma stable since 2017 Agoraphobia 09/22/2016 Urinary incontinence 07/23/2016 Heartburn 05/22/2016 Hypertensive disorder 05/22/2016 Mild major depression ([facility] V24) 05/22/2016 Encounters Date Type Department Care Team Description 09/09/2025 11:31 AM EDT - 09/09/2025 2:43 PM EDT Emergency [facility] Emergency [address] [place] [address] Harper Reid DO Chest pain, unspecified type (Primary Dx) Discharge Disposition: Home or Self Care from Last 3 Months Medical History Medical History Date Comments Hypertension High cholesterol Pre-diabetes Social History Tobacco Use Types Packs/Day Years Used Date Smoking Tobacco: Never Assessed Comments Unknown Sex and Gender Information Value Date Recorded Sex Assigned at Not on file Legal Sex Female 5:05 AM EST Gender Identity Not on file Sexual Orientation Not on file Obstetrics History Last Filed Vital Signs Vital Sign Reading Time Taken Comments Blood Pressure 131/74 09/09/2025 12:55 PM EDT Pulse 87 09/09/2025 12:55 PM EDT Temperature 36.5 C (97.7 F) 09/09/2025 11:03 AM EDT Respiratory Rate 19 09/09/2025 12:55 PM EDT Oxygen Saturation 100% 09/09/2025 12:07 PM EDT Inhaled Oxygen Concentration - - Weight 91.2 kg (201 lb) 09/09/2025 11:03 AM EDT Height 154.9 cm (5' 1 ) 09/09/2025 11:03 AM EDT Body Mass Index 37.98 09/09/2025 11:03 AM EDT Plan of Treatment Upcoming Encounters Date Type Department Care Team (Late st Contact Info) Description 10/18/2025 9:30 AM EST Office Visit Orthopedic Surgery - [place] [address] [address] Stewart Gifford MD [address] [address] Health Maintenance Due Date Last Done Comments Breast Cancer Screening 1960 Colorectal Cancer Screening: Colonoscopy 1960 Cervical Cancer Screening: Pap Smear 1983 RSV Immunization Adult Patients (1 - Risk 50-74 years 1-dose series) 2012 HIV Screening 11/02/2022 Hepatitis C Screening 11/02/2022 Social Influencers of Health Screening 11/02/2022 Pneumococcal Vaccine: 50+ Years (2 of 2 - PCV) 01/22/2023 01/22/2022 Depression Screening 11/30/2024 COVID-19 Vaccine ( season) 2025 07/03/2022, 10/16/2021, 03/27/2021, Additional history exists Influenza Vaccine (#1) 2025 , 11/09/2023, 11/04/2022, Additional history exists Hypertension/CHF/CAD Annual BMP Blood Test 09/09/2026 09/09/2025, 08/01/2025, 09/02/2024 DTaP,Tdap,and Td Vaccines (2 - Td or Tdap) 09/22/2026 09/22/2016 Cholesterol Screening (Lipid Panel) 08/01/2030 08/01/2025, 09/02/2024 Zoster Vaccines Completed 07/15/2022, 05/13/2022 HIB [...] on patient's age to complete this topic Procedures Procedure Name Priority Date/Time Associated Diagnosis Comments ECG ANNOTATED 09/11/2025 ECG 12-LEAD STAT 09/09/2025 12:31 PM EDT TROPONIN I HIGH SENSITIVITY Timed 09/09/2025 12:17 PM EDT XR CHEST 2 VIEWS STAT 09/09/2025 11:3 0 AM EDT CBC WITH AUTO DIFFERENTIAL STAT 09/09/2025 11:18 AM EDT B-TYPE NATRIURETIC PEPTIDE STAT 09/09/2025 11:18 AM EDT MAGNESIUM STAT 09/09/2025 11:18 AM EDT LIPASE STAT 09/09/2025 11:18 AM EDT COMPREHENSIVE METABOLIC PANEL STAT 09/09/2025 11:18 AM EDT CBC AND DIFFERENTIAL STAT 09/09/2025 11:18 AM EDT TROPONIN I HIGH SENSITIVITY Timed 09/09/2025 11:18 AM EDT ECG 12-LEAD STAT 09/09/2025 11:11 AM EDT from Last 3 Months Results * ECG-Annotated (09/11/2025) us Provider Onbase MD ECG ORDERABLES Final Result * ECG 12 lead (09/09/2025 12:31 PM EDT) Only the most recent of2 resultswithin the time period is included. Pathologist [facility] Ventricular Rate ECG 74 BPM GEMUSE Atrial Rate 74 BPM GEMUSE P-R Interval 174 ms GEMUSE QRS Duration 94 ms GEMUSE Q-T Interval 416 ms GEMUSE QTc 461 ms GEMUSE P Wave Henderson 64 degrees GEMUSE R Henderson -5 degrees GEMUSE T Henderson 42 degrees GEMUSE ECG Interpretation Normal sinus rhythm Low voltage QRS Abnormal ECG When compared with ECG of 09-SEP-2025 11:11, (unconfirmed) No significant change was found Confirmed by Suad JONES YUFENG ([id number]) on 09/09/2025 10:41:03 PM GEMUSE 09/09/2025 12:3 1 PM EDT 09/09/2025 10:41 PM EDT Harper Reid DO ECG ORDERABLES Final Result GEMUSE * Troponin I high sensitivity (09/09/2025 12:17 PM EDT) Only the most recent of2 resultswithin the time period is included. [facility] High Sensitivity Troponin I 5 <=54 ng/L LAB CHEMISTRY METHOD 09/09/2025 1:09 PM EDT [facility] Blood Venous blood specimen / Unknown Venipuncture / Unknown 09/09/2025 12:17 PM EDT 09/09/2025 12:37 PM EDT Narrative [facility] - 09/09/2025 1:09 PM EDT High levels of biotin in samples may falsely decrease hsTroponin values. Use caution when interpreting hsTroponin results in patients taking biotin who exhibit renal impairment (eGFR <60) or in patients taking more than 20 mg/day of biotin. us Harper Reid DO LAB BLOOD ORDERABLES Final Re sult [facility] [address] [place] [address], [place] [phone] * XR Chest 2 Views (09/09/2025 11:30 AM EDT) Anatomical Region Laterality Modality Body Radiographic Rosa M ging 09/09/2025 11:5 3 AM EDT Impressions 09/09/2025 11:54 AM EDT FINDINGS/IMPRESSION: Lungs are clear. No pleural effusion or pneumothorax. Cardiac silhouette and bones are within normal limits. Cholecystectomy clips. -------- FINAL REPORT -------- Dictated By: DOMINGO ZAPATA Dictated Date: 09/09/2025 11:53 ET Assigned Physician: DOMINGO ZAPATA Reviewed and Electronically Signed By: DOMINGO ZAPATA Signed Date: 09/09/2025 11:54 ET Workstation ID: [id number] Transcribed By: Self Edit Transcribed Date: 09/09/2025 11:53 ET Narrative 09/09/2025 11:54 AM EDT XR CHEST 2 VIEWS INDICATION: Chest pain TECHNIQUE: XR CHEST 2 VIEWS COMPARISON: 04/09/2024 Procedure Note Domingo Zapata MD - 09/09/2025 XR CHEST 2 VIEWS INDICATION: Chest pain TECHNIQUE: XR CHEST 2 VIEWS COMPARISON: 04/09/2024 IMPRESSION: FINDINGS/IMPRESSION: Lungs are clear. No pleural effusion orpneumothorax. Cardiac silhouette and bones are within normal limits.Cholecystectomy clips. -------- FINAL REPORT -------- Dictated By: DOMINGO ZAPATA Dictated Date: 09/09/2025 11:53 ET Assigned Physician: DOMINGO ZAPATA Reviewed and Electronically Signed By: DOMINGO ZAPATA Signed Date: 09/09/2025 11:54 ET Workstation ID: [id number] Transcribed By: Self Edit Transcribed Date: 09/09/2025 11:53 ET us Harper Reid DO IMG XR PROCEDURES Final Resul t * (ABNORMAL) CBC auto differential (09/09/2025 11:18 AM EDT) WBC 6.5 4.8 - 10.8 K/mcL LAB HEMETOLOGY METHOD 09/09/2025 11:31 AM [facility] RBC 4.80 3.80 - 4.80 M/mcL LAB HEMETOLOGY METHOD 09/09/2025 11:31 AM [facility] Hemoglobin 13.2 11.5 - 16.0 g/dL LAB HEMETOLOGY METHOD 09/09/2025 11:31 AM [facility] Hematocrit 42.8 35.0 - 47.0 % LAB HEMETOLOGY METHOD 09/09/2025 11:31 AM [facility] MCV 90.1 79.0 - 98.0 FL LAB HEMETOLOGY METHOD 09/09/2025 11:31 AM [facility] MCH 27.8 27.0 - 32.0 pcg LAB HEMETOLOGY METHOD 09/09/2025 11:31 AM [facility] MCHC 30.8(L) 32.0 - 37.0 g/dL LAB HEMETOLOGY METHOD 09/09/2025 11:31 AM [facility] RDW 13.5 11.0 - 15.0 % LAB HEMETOLOGY METHOD 09/09/2025 11:31 AM [facility] Platelets 220 130 - 400 K/mcL LAB HEMETOLOGY METHOD 09/09/2025 11:31 AM [facility] MPV 10.0 7.0 - 11.0 FL LAB HEMETOLOGY METHOD 09/09/2025 11:31 AM [facility] NRBC 0.0 <1.0 % LAB HEMETOLOGY METHOD 09/09/2025 11:31 AM [facility] NRBC Absolute 0.00 <0.10 K/mcL LAB HEMETOLOGY METHOD 09/09/2025 11:31 AM [facility] Neutrophils Relative 64.1 % LAB HEMETOLOGY METHOD 09/09/2025 11:31 AM [facility] Lymphocytes Relative 24.3 % LAB HEMETOLOGY METHOD 09/09/2025 11:31 AM [facility] Monocytes Relative 7.7 % LAB HEMETOLOGY METHOD 09/09/2025 11:31 AM [facility] Eosinophils Relative 2.5 % LAB HEMETOLOGY METHOD 09/09/2025 11:31 AM [facility] Basophils Relative 0.9 % LAB HEMETOLOGY METHOD 09/09/2025 11:31 AM [facility] Immature Granulocytes Relative 0.5 % LAB HEMETOLOGY METHOD 09/09/2025 11:31 AM [facility] Neutrophils Absolute 4.18 1.50 - 7.00 K/mcL LAB HEMETOLOGY METHOD 09/09/2025 11:31 AM [facility] Lymphocytes Absolute 1.58 1.00 - 5.00 K/mcL LAB HEMETOLOGY METHOD 09/09/2025 11:31 AM [facility] Monocytes Absolute 0.50 0.20 - 1.00 K/mcL LAB HEMETOLOGY METHOD 09/09/2025 11:31 AM EDT [facility] Eosinophils Absolute 0.16 0.00 - 0.50 K/[facility] LAB HEMETOLOGY METHOD 09/09/2025 11:31 AM EDT [facility] Basophils Absolute 0.06 0.00 - 0.20 K/[facility] LAB HEMETOLOGY METHOD 09/09/2025 11:31 AM EDT [facility] Immature Granulocytes Absolute 0.03 0.00 - 0.03 K/[facility] LAB HEMETOLOGY METHOD 09/09/2025 11:31 AM EDT [facility] Blood Venous blood specimen / Unknown Venipuncture / Unknown 09/09/2025 11:18 AM EDT 09/09/2025 11:26 AM EDT Harper Reid LAB BLOOD ORDERABLES Final Re sult [facility] [address] [place] [address], [place] [phone] * B-type natriuretic peptide (09/09/2025 11:18 AM EDT) Pathologist [facility] BNP 5 <=100 pcg/mL LAB CHEMISTRY METHOD 09/09/2025 11:58 AM EDT [facility] Blood Venous blood specimen / Unknown Venipuncture / Unknown 09/09/2025 11:18 AM EDT 09/09/2025 11:26 AM EDT Harper [employer] LAB BLOOD ORDERABLES Final Re sult [facility] [address] [place] [address], [place] [phone] * Magnesium (09/09/2025 11:18 AM EDT) Magnesium 2.2 1.9 - 2.6 mg/dL LAB CHEMISTRY METHOD 09/09/2025 11:50 AM EDT [facility] Blood Venous blood specimen / Unknown Venipuncture / Unknown 09/09/2025 11:18 AM EDT 09/09/2025 11:26 AM EDT [facility] BLOOD ORDERABLES Final Re sult Performing Organization Address City/[facility]/ZIP Co de Phone Number [facility] [address] [place] [address], [place] [phone] * Lipase (09/09/2025 11:18 AM EDT) [facility] Lipase 25 13 - 75 unit/L LAB CHEMISTRY METHOD 09/09/2025 11:50 AM EDT [facility] Blood Venous blood specimen / Unknown Venipuncture / Unknown 09/09/2025 11:18 AM EDT 09/09/2025 11:26 AM EDT [facility] LAB BLOOD ORDERABLES Final Re sult Performing Organization Address [facility] de Phone Number [facility] [address] [place] [address], [place] [phone] * (ABNORMAL) Comprehensive metabolic panel (09/09/2025 11:18 AM EDT) [facility] Sodium 140 133 - 145 mmol/L LAB CHEMISTRY METHOD 09/09/2025 11:50 AM EDT [facility] Potassium 4.1 3.5 - 5.5 mmol/L LAB CHEMISTRY METHOD 09/09/2025 11:50 AM EDT [facility] Chloride 108 96 - 110 mmol/L LAB CHEMISTRY METHOD 09/09/2025 11:50 AM EDT [facility] CO2 28 21 - 32 mmol/L LAB CHEMISTRY METHOD 09/09/2025 11:50 AM EDT [facility] Anion Gap 4 3 - 11 LAB CHEMISTRY METHOD 09/09/2025 11:50 AM [facility] Glucose 102(H) 70 - 100 mg/dL LAB CHEMISTRY METHOD 09/09/2025 11:50 AM [facility] BUN 12 5 - 25 mg/dL LAB CHEMISTRY METHOD 09/09/2025 11:50 AM [facility] Creatinine 0.62 0.50 - 1.10 mg/dL LAB CHEMISTRY METHOD 09/09/2025 11:50 AM [facility] eGFR 100 >=60 mL/min/1. 73m2 LAB CHEMISTRY METHOD 09/09/2025 11:50 AM [facility] Comment:Calculation based on the Chronic Kidney Disease Epidemiology Collaboration (CKD-EPI) equation refit without adjustment for race. BUN/Creatinine Ratio 19.4 LAB CHEMISTRY METHOD 09/09/2025 11:50 AM [facility] Calcium 9.0 8.5 - 10.5 mg/dL LAB CHEMISTRY METHOD 09/09/2025 11:50 AM [facility] AST (SGOT) 19 10 - 42 unit/L LAB CHEMISTRY METHOD 09/09/2025 11:50 AM [facility] ALT (SGPT) 29 10 - 60 unit/L LAB CHEMISTRY METHOD 09/09/2025 11:50 AM [facility] Alkaline Phosphatase 100 42 - 121 unit/L LAB CHEMISTRY METHOD 09/09/2025 11:50 AM [facility] Total Protein 7.3 6.0 - 8.0 g/dL LAB CHEMISTRY METHOD 09/09/2025 11:50 AM [facility] Albumin 3.7 3.2 - 5.0 g/dL LAB CHEMISTRY METHOD 09/09/2025 11:50 AM [facility] Total Bilirubin 0.3 0.0 - 1.4 mg/dL LAB CHEMISTRY METHOD 09/09/2025 11:50 AM EDT [facility] Blood Venous blood specimen / Unknown Venipuncture / Unknown 09/09/2025 11:18 AM EDT 09/09/2025 11:26 AM EDT us Harper Reid DO LAB BLOOD ORDERABLES Final Re sult [facility] [address] [place] [address], from Last 3 Months Insurance MEDICAID - [place] Care Teams Weight Inspector Relationship Specialty Start Date End Date Name, MD Dieter [address] [place], [place] PCP - General 08/09/21
--- OUTSIDE RECORDS SUMMARY | 2025-10-10 17:42 | XMS_ITS | Encounter Summary ---
Author Organization [employer] Address [address] [facility] [address] [place] [address] Care Team Providers Care Online Advertising Analyst Name Role Phone Name, Dieter HERNANDEZ Primary Care Provider [phone] Reason for Visit * Reason Onset Date Comments Med Refill 10/05/2025 Encounter Details Date Type Department Care Team (Late st Contact Info) Description 10/05/2025 Refill [facility] [address] [place] [address] Name, MD Dieter [address] [place] [address] Chronic pain syndrome Social History Tobacco Use [...] Encounter - Concepcion Thompson RN - 10/05/2025 11:09 AM EST See separate encounter. Resent prior auth request for Clonazepam prescription that was sent April 2025. * Telephone Encounter - Elen Martinez - 10/05/2025 10:52 AM EST TC from pt requesting medication refill. Medications needing refill : - oxyCODONE (Roxicodone) 5 MG immediate release tablet - clonazePAM (KlonoPIN) 1 MG tablet To be sent to: - [facility] - [place], [place] - [address] [place] [address] documented in this encounter Plan of Treatment Upcoming Encounters Date Type Department Care Team ([facility] st Contact Info) Description 01/09/2026 9:45 AM EST Office Visit [facility] [address] [place] [address] documented as of this encounter Goals Goal [...] documented as of this encounter Care Teams Online Advertising Analyst Relationship Specialty Start Date End Date Name, MD Dieter [address] [place] [address] PCP - General Family Medicine 05/22/16 documented as of this encounter
--- OUTSIDE RECORDS SUMMARY | 2025-10-10 17:42 | XMS_ITS | Encounter Summary ---
Author Organization [employer] Address [address] [place] [address] [address] [place] [address] Care Team Providers Care Table Games Supervisor Name Role Phone Name, Dieter HERNANDEZ Primary Care Provider [phone] Reason for Visit * Reason Comments Med Change Request Encounter Details Date Type Department Care Team (Late Contact Info) Description 03/16/2023 Refill [facility] [address] [place], [place] [phone] Name, MD Dieter [address] [place], [place] [phone] Diabetes mellitus type 2 in obese (CMS/HCC) [...] Encounters Date Type Department Care Team (Late Contact Info) Description 01/09/2026 9:45 AM EST Office Visit [facility] [address] [place] [phone] documented as of this encounter Visit Diagnoses Diagnosis Diabetes mellitus type 2 in obese Type II or unspecified type diabetes mellitus without mention of complication, not stated as uncontrolled documented in this encounter Care Teams Table Games Supervisor Relationship Specialty Start Date End Date Name, MD Dieter [address] [place] [address] PCP - General Family Medicine 05/22/16 documented as of this encounter
--- OUTSIDE RECORDS SUMMARY | 2025-10-10 17:42 | XMS_ITS | Encounter Summary ---
Author Organization [employer] Address [address] [facility] [address] [place] [address] Care Team Providers Care Hot Stamp Operator Name Role Phone Name, Dieter HERNANDEZ Primary Care Provider [phone] Reason for Visit * Reason Comments Med Refill Encounter Details Date Type Department Care Team (Late st Contact Info) Description 10/01/2023 Refill [facility] [address] [place] [phone] Name, MD Dieter [address] [place] [address] Panic attack Social History Tobacco Use Types [...] Description 01/09/2026 9:45 AM EST Office Visit [facility] [address] [place] [address] documented as of this encounter Goals Goal [...] documented as of this encounter Care Teams Hot Stamp Operator Relationship Specialty Start Date End Date Name, MD Dieter [address] [place] [address] PCP - General Family Medicine 05/22/16 documented as of this encounter
--- OUTSIDE RECORDS SUMMARY | 2025-10-10 17:42 | XMS_ITS | Encounter Summary ---
Author Organization [employer] Address [address] [facility] [address] [place] [address] Care Team Providers Care Small Wind Energy Installer Name Role Phone Name, Dieter HERNANDEZ Primary Care Provider [phone] Reason for Visit * Reason Comments Med Refill Encounter Details Date Type Department Care Team (Late st Contact Info) Description 05/30/2024 Refill [facility] [address] [place], [place] [phone] Name, MD Dieter [address] [place] [address] Panic attack Social History Tobacco Use Types [...] Description 01/09/2026 9:45 AM EST Office Visit [facility] [address] [place] [address] documented as of this encounter Goals Goal [...] documented as of this encounter Care Teams Small Wind Energy Installer Relationship Specialty Start Date End Date Name, MD Dieter [address] [place] [address] PCP - General Family Medicine 05/22/16 documented as of this encounter
--- OUTSIDE RECORDS SUMMARY | 2025-10-10 17:42 | XMS_ITS | Clinical Summary ---
Author Organization [employer] Address [address] [place] [address] 7 [place] [address] Care Team Providers Care Dumpster Operator Name Role Phone Name, Dieter HERNANDEZ Primary Care Provider [phone] Allergies Active Allergy Reactions Criticality Noted Date [...] CAPSULE BY MOUTH 4 TIMES A DAY 023 Active EPINEPHrine (Epipen) 0.3 MG/0.3ML injection syringe Inject 0.3 mL (0.3 mg) as directed 1 (one) time for 1 dose. 1 each 1 023 Active estradiol (Estrace) 0.1 MG/GM vaginal cream INSERT 1 GRAM VAGINALLY 3 TIMES PER WEEK DIRECTED 023 Active albuterol (2.5 MG/3ML) 0.083% nebulizer solution Inhale 3 mL every 6 (six) hours as needed 75 mL 3 024 Active enalapril (Vasotec) 20 MG tabletIndications :Obesity (BMI 30-39.9),Hyperten gordon, unspecified type,Prediabetes Take 1 tablet (20 mg) by mouth Once per day. 30 tablet 11 024 Active Bisacodyl EC 5 MG EC tablet TAKE 2 TABLETS BY MOUTH EVERY DAY NEEDED FOR CONSTIPATION 180 tablet Active naloxone (Narcan) 4 mg/0.1 mL nasal sprayIndications: Chronic low back pain, unspecified back pain laterality, unspecified whether sciatica present Administer 1 spray (4 mg) into affected nostril(s) if needed for opioid reversal. 2 each 2 Active fluticasone furoate (Arnuity Ellipta) 100 MCG/ACT inhaler Inhale 1 puff Once per day. Rinse mouth with water after use to reduce aftertaste and incidence of candidiasis. Do not swallow. 1 each 025 2025 Active clonazePAM (KlonoPIN) 1 MG tabletIndications :Anxiety Take 1 tablet (1 mg) by mouth if needed each day for anxiety. TAKE 1 TABLET BY MOUTH EVERY DAY NEEDED FOR ANXIETY 20 tablet Active montelukast (Singulair) 10 MG tablet TAKE 1 TABLET BY MOUTH EVERY DAY 30 tablet 2 Active diphenhydrAMINE (BENADryl) 25 MG capsuleIndication s:Hypertension, unspecified type TAKE 1 CAPSULE BY MOUTH EVERY 8 HOURS NEEDED FOR ALLERGY 60 capsule 025 Active propranolol (Inderal) 10 MG tabletIndications :Anxiety TAKE 1 TABLET BY MOUTH TWICE DAILY IN THE MORNING AND AT BEDTIME NEEDED FOR ANXIETY 60 tablet 025 Active pantoprazole (ProtoNix) 40 MG EC tabletIndications :Panic attack TAKE 1 TABLET BY MOUTH TWICE DAILY EVERY MORNING AND EVENING. DO NOT BREAK, CRUSH, DISSOLVE OR CHEW 180 tablet 1 Active atorvastatin (Lipitor) 20 MG tablet Take 1 tablet (20 mg) by mouth Once per day. 30 tablet 11 025 2025 Active Tirzepatide-Weigh t Management (Zepbound) 2.5 MG/0.5ML solution auto-injectorIndi cations:Morbid obesity (CMS/HCC) (HCC),SOFI (obstructive sleep apnea),Primary osteoarthritis of both knees Inject 0.5 mL (2.5 mg) under the skin 1 (one) time per week. 2 mL 025 2024 Active Ventolin HFA 108 (90 Base) MCG/ACT inhaler INHALE 2 PUFFS EVERY 4 HOURS NEEDED FOR WHEEZING OR SHORTNESS OF BREATH 18 g 3 025 Active FLUoxetine (PROzac) 10 MG capsuleIndication s:Anxiety,Moderat e episode of recurrent major depressive disorder (CMS/HCC) ([facility]) TAKE 1 CAPSULE BY MOUTH EVERY DAY IN THE MORNING 30 capsule 1 025 Active oxyCODONE (Roxicodone) 5 MG immediate release tabletIndications :Chronic pain syndrome Take 1 tablet (5 mg) by mouth every 6 (six) hours if needed for severe pain for up to 28 days. 112 tablet 025 2024 Active albuterol (Ventolin HFA) 108 (90 Base) MCG/ACT inhaler Inhale 2 puffs every 4 (four) hours if needed for wheezing or shortness of breath. 18 g 3 025 2024 Discontinued FLUoxetine (PROzac) 10 MG capsuleIndication s:Anxiety,Moderat e episode of recurrent major depressive disorder (CMS/HCC) ([facility]) TAKE 1 CAPSULE BY MOUTH EVERY MORNING 30 capsule 1 025 2024 Discontinued oxyCODONE (Roxicodone) 5 MG immediate release tabletIndications :Chronic pain syndrome Take 1 tablet (5 mg) by mouth every 6 (six) hours if needed for severe pain for up to 28 days. Do not start before September 06, 2025. 112 tablet 025 2024 Discontinued(R eorder (will not trigger notification to Pharmacy)) Active Problems Problem Noted Date Diagnosed Date Generalized anxiety disorder with panic attacks 04/18/2025 skilled nursing (current) use of opiate analgesic 03/30 Overview (04/11/2025): Medication: Percocet (5/325mg) Q6H PRN Indication: chronic back pain s/p LS surgery Last CULINARY ARTS INSTRUCTOR Agreement: 02/02/25 Tier II (CULINARY ARTS INSTRUCTOR visit every 3 months) Assessment & Plan (10/10/2025 1:58 PM EST): Timeline: - 04/11/25: Initial Group, utox/pill count wnl - 07/11/25: Group - pill count as expected, utox confirmatory as expected - 10/10/25: Group - pill count as expected, utox neg oxy --> confirmatory sent Assessment & Plan (07/13/2025 8:58 AM EDT): [...] rheumatology in the past Assessment & Plan (10/10/2025 1:57 PM EST): -Good engagement and participation with Group Medical Visit model -Encouraged multifactorial approach to pain control including pharm and non- pharm modalities -Pill count as expected, utox not as expected --> negative for oxy. Confirmatory lab sent. See electromyographic technician Assessment & Plan (07/13/2025 8:59 AM EDT): -Good engagement and participation with Group Medical Visit model -Encouraged multifactorial approach to pain control including pharm and non- pharm modalities -Pill count as expected, utox not as expected. See electromyographic technician Assessment & Plan (04/11/2025 4:35 PM EDT): [...] 09/22/2016 Urinary incontinence 07/23/2016 Moderate episode of recurren t major depressive disorder (CMS/HCC) 05/22/2016 Hypertensive disorder 05/22/2016 Heartburn 05/22/2016 Resolved [...] 02/02/2018 Overview (01/09/2023): s/p cholecystectomy. Follows at [facility] for years. Has fatty liver EGD 08/19--chronic infl at [facility], schatzki ring dilated with tear noted MRI 03/2021--nml CBD, no stircutres, or stones seen, fatty liver colonoscopy 06/19--normal, no polyps, small hemorrhoids noted, bx with melanosis coli CT 12/21-- small umbilical hernia Headache 02/26/2017 05/14/2023 Neoplasm of brain (CMS/HCC) 02/26/2017 05/14/2023 Hypothyroidism 05/22/2016 01/09/2023 Encounters * This document contains information received from the source organization and may not represent a complete record from that organization. Date Type Department Care Team Description 10/10/2025 9:45 AM EST Office Visit [facility] [address] [place] [phone] Lisset Feliz, SERVICER COIN MACHINES Chronic low back pain, unspecified back pain laterality, unspecified whether sciatica present (Primary Dx); supervisor intermediates (current) use of opiate analgesic 10/10/2025 Telephone [facility] [address] [place] [phone] Concepcion Thompson RN Abnormal UTOX 10/10/2025 Travel 10/05/2025 Refill [facility] [address] [place] [address] Dieter Patterson MD Chronic pain syndrome 09/29/2025 Refill [facility] [address] [place], [place] [phone] Dieter Patterson MD Anxiety; Moderate episode of recurrent major depressive disorder (CMS/HCC) (HCC) 09/18/2025 Telephone [facility] [address] [place] [phone] Dieter Patterson MD Prior Authorization 09/16/2025 Refill [facility] [address] [place] [phone] Dieter Patterson MD 09/12/2025 11:30 AM EDT Office Visit [facility] [address] [place] [phone] Dieter Patterson MD Morbid obesity (CMS/HCC) (HCC) (Primary Dx); SOFI (obstructive sleep apnea); Primary osteoarthritis of both knees; Prediabetes; Encounter for immunization; Chest pain, unspecified type 09/12/2025 Travel 09/05/2025 Refill [facility] [address] [place] [phone] Dieter Patterson MD Chronic pain syndrome 09/05/2025 Refill [facility] [address] [place] [phone] Dieter Patterson MD Chronic pain syndrome 09/05/[address] [phone] Dieter Pattesron MD Appointment Request 09/05/2025 Telephone [facility] [address] [place] [phone] Dieter Patterson MD Referral 08/18/2025 Results Follow-Up [facility] [address] [place] [phone] Dieter Patterson MD TSH W/Reflex to FT4, Comprehensive Metabolic Panel, Lipid Panel, Standard 08/18/2025 Telephone [facility] [address] [place] [phone] Dieter Patterson MD Results 08/15/2025 Telephone [facility] [address] [place] [phone] Dieter Patterson MD Nurse Triage 08/14/[address] [phone] Dieter Patterson MD Prior Authorization 08/13/2025 Refill [facility] [address] [place] [phone] Jennifer Eid DO Panic attack 08/04/[address] [phone] Dieter Patterson MD Chronic pain syndrome 07/26/2025 10:45 AM EDT Office Visit [address] [phone] Dieter Patterson MD Morbid obesity (CMS/HCC) (Primary Dx); SOFI on CPAP; Osteoarthritis of both knees, unspecified osteoarthritis type 07/26/2025 Travel 07/25/[address] [phone] Dieter Patterson MD chart prep 07/25/2025 Refill [facility] [address] [place], [place] [phone] Dieter Patterson MD Anxiety 07/24/2025 Refill [facility] [address] [place], [place] [phone] Krissy Smith MD Hypertension, unspecified type; Anxiety 07/24/2025 Refill [facility] [address] [place] [address] Dieter Patterson MD Anxiety; Moderate episode of recurrent major depressive disorder (CMS/HCC) 07/11/2025 9:45 AM EDT Office Visit [facility] [address] [place] [address] Lisset Feliz FNP Chronic low back pain, unspecified back pain laterality, unspecified whether sciatica present (Primary Dx); supervisor intermediates (current) use of opiate analgesic 07/11/2025 Telephone [facility] [address] [place] [address] Concepcion Thompson RN Abnormal UTOX, BPI & JONATHAN scoring 07/11/2025 Travel from Last 3 Months Immunizations Immunization Administration Dates Next Due Influenza Injectable Quadriv alant Preservative Free IIV4 MDCK 11/04/2022,09/12/2020 Influenza injectable quadriv alent IIV4 with preservative 10/03/2019,09/09/2017 Influenza injectable quadriv alent preservative free 11/09/2023,11/12/2021 Influenza, IIV3, injectable 10/09/2015 Influenza, seasonal, injecta ble, preservative free 09/12/2025,08/29/2024 Moderna Covid-19 Vaccine 12+ 07/03/2022, 10/16/2021,03/27/2021,02/27 Pneumococcal [...] Sign Reading Time Taken Comments Blood Pressure 122/68 09/12/2025 11:54 AM EDT Pulse 86 09/12/2025 11:54 AM EDT Temperature 36 C (96.8 F) 09/12/2025 11:54 AM EDT Respiratory Rate 18 09/12/2025 11:5 4 AM EDT Oxygen Saturation 98% 09/12/2025 11: 54 AM EDT Inhaled Oxygen Concentration - - Weight 96.5 kg (212 lb 12.8 oz) 025 11:54 AM EDT Height 154.9 cm (5' 1 ) 09/12/2025 11:5 4 AM EDT Body Mass Index 40.21 09/12/2025 11:54 AM EDT Plan of Treatment Upcoming Encounters Date Type Department Care Team (Late st Contact Info) Description 01/09/2026 9:45 AM EST Office Visit [facility] [address] [place] [address] Health Maintenance Due Date Last Done Comments CT Colonography 1960 FIT DNA/Cologuard 1960 FIT 1960 FOBT 1960 HIV Screening 1960 Sigmoidoscopy 1960 Hepatitis C Screening 1980 RSV Patients and Patients Aged 60 years or older (1 - Risk 60-74 years 1-dose series) 2022 Pneumococcal Vaccine: 50+ Years (2 of 2 - PCV) 01/22/2023 01/22/2022 Diabetes: Hemoglobin A1C 04/12/2025 024, 08/19/2023, 09/02/2022, Additional history exists COVID-19 Vaccine ( season) 2025 07/03/2022, 10/16/2021, 03/27/2021, Additional history exists Alcohol/Substance Use Screening 01/10/2026 01/10/2025 SDOH Screening 01/10/2026 01/10/2025 Mammogram 03/07/2026 03/07/2024, 07/31, 07/29/2021, Additional history exists Depression Screening 03/21/2026 03/21/2025, 03/21/20 25 Disability Screening 04/10/2026 04/10/2025 Tobacco Screening 09/12/2026 09/12/2025 DTaP/Tdap/Td Vaccines (2 - Td or Tdap) 09/22/2026 09/22/2016 Cervical Cancer Screening 06/04/2027 HPV/Cotest 06/04/2027 06/04/2022 Pap Smear 06/04/2027 06/04/2022 Lipid Panel 08/01/2030 08/01/2025, 1002/2024, 09/02/2022, Additional history exists Colonoscopy 06/05/2031 06/05/2021, 06/05/2021 Colorectal Cancer Screening 06/05/2031 Zoster Vaccines Completed 07/15/2022, 05/13/2022 Influenza Vaccine Completed 09/12/2025, , 11/09/2023, Additional history exists HIB Vaccines Aged Out No longer eligi [...] 122/68( 025 11:54 AM EDT) No Cici Cottrell PharmD Procedures Procedure Name Priority Date/Time Associated Diagnosis Comments POCT JESÚS-14 URINE DRUG SCREEN Routine 10/10/2025 10:04 AM EST Chronic low back pain, unspecified back pain laterality, unspecified whether sciatica present LIPID PANEL, STANDARD Routine 08/01/2025 8:41 AM EDT Class 2 severe obesity with serious comorbidity and body mass index (BMI) of 39.0 to 39.9 in adult, unspecified obesity type (CMS/HCC) COMPREHENSIVE METABOLIC PANEL Routine 08/01/2025 8:41 AM EDT Class 2 severe obesity with serious comorbidity and body mass index (BMI) of 39.0 to 39.9 in adult, unspecified obesity type (CMS/HCC) TSH W/REFLEX TO FT4 Routine 08/01/2025 8 :41 AM EDT Class 2 severe obesity with serious comorbidity and body mass index (BMI) of 39.0 to 39.9 in adult, unspecified obesity type (CMS/HCC) POCT JESÚS-14 URINE DRUG SCREEN Routine 07/11/2025 10:39 AM EDT skilled nursing (current) use of opiate analgesic OXYCODONE SCREEN, URINE Routine 07/11/2025 10:00 AM EDT skilled nursing (current) use of opiate analgesic POCT GLYCATED HEMOGLOBIN, TOTAL Routine 04/12/2024 12:07 [...] Urine Drug Screen (10/10/2025 10:04 AM EST) Only the most recent of2 resultswithin the time period is included. THC Negative Negative Cocaine Screen, Urine Negative Negative Opiate Screen, Urine Negative Negative Methamphetamine Screen Urine Negative Negative Amphetamine Screen, Urine Negative Negative Benzodiazepines Screen, Urine Negative Negative Comment:CULINARY ARTS INSTRUCTOR pt, last took 72 hours ago Barbiturate Screen, Urine Negative Negative Methadone Screen, Urine Negative Negative Buprenophine Screen, Urine Negative Negative TCA, Urine Negative Negative MDMA Urine Negative Negative ng/mL Oxycodone Screen, Urine Negative Negative Comment:CULINARY ARTS INSTRUCTOR pt, last took Phencyclidine (PCP), Urine Negative Negative Propoxyphene, Urine Negative Negative Fentanyl, Urine Negative Negative Urine Urine specimen obtained by clean catch procedure / Unknown 10/10/2025 10:04 AM EST Concepcion Sanchez, RN - 10/10/2025 10:04 AM EST UTOX cup Lot#[id number] Exp. 10/30/26 Internal Pass Control Lisset Feliz SERVICER COIN MACHINES POINT OF CARE TEST ENTER/EDIT ORDERABLES Final Result * TSH W/Reflex to FT4 (08/01/2025 8:41 AM EDT) TSH reflex Free T4 2.70 0.32 - 4.0 uIU/mL [facility] Blood Venous blood specimen / Unknown 08/01/2025 8:41 AM EDT 08/01/2025 11:00 AM EDT us Dieter Patterson MD LAB BLOOD ORDERABLES Final Resul t Performing Organization Address [facility] de Phone Number [facility] [address] [place] [phone] * (ABNORMAL) Lipid Panel, Standard (08/01/2025 8:41 AM EDT) Triglycerides 95 <150 mg/dL [facility] Comment:Desirable Triglyceri de: less than 150 mg/dLBorderline High Triglyceride 150-199 mg/dLHigh Triglyceride: 200-499 mg/dLVery High Triglyceride: greater than or equal to 5OO mg/dL Cholesterol 207(H) <200 mg/dL [facility] Comment:Desirable Cholestero l: less than 200 mg/dLBorderline High Cholesterol: 200-239 mg/dLHigh Cholesterol: greater than 239 mg/dL LDL Cholesterol Calculated 135(H) <100 mg/dL [facility] Comment:Desirable LDL: less than 100 mg/dLNear Optimal/Above Optimal LDL: 110- 129 mg/dLBorderline High LDL: 130-159 mg/dLHigh LDL: 160-189 mg/dLVery High LDL: greater than or equal to 190 mg/dL HDL Cholesterol 53 >40 mg/dL [facility] Comment:Desirable HDL: great er than 40 mg/dL Note: This HDL assay may give artificially low results in patients with liver disease. Blood Venous blood specimen / Unknown 08/01/2025 8:41 AM EDT 08/01/2025 11:00 AM EDT us Dieter Patterson MD LAB BLOOD ORDERABLES Final Resul t Performing Organization Address [facility] Co de Phone Number [facility] [address] [place] [phone] * (ABNORMAL) Comprehensive Metabolic Panel (08/01/2025 8:41 AM EDT) Sodium 143 135 - 145 mmol/L [facility] Potassium 3.7 3.3 - 5.1 mmol/L [facility] Chloride 109(H) 96 - 108 mmol/L [facility] Carbon Dioxide 24 22 - 29 mmol/L [facility] Anion Gap 14 12 - 20 [facility] Urea Nitrogen (BUN) 16 9 - 16 mg/dL [facility] Creatinine, Serum 0.66 0.5 - 1.4 mg/dL [facility] Estimated Glomerular Filt Rate >60 [facility] Comment:Chronic Kidney Disea se: Estimated GFR < 60 mL/min/1.45e2Kibcdw Kidney Disease: Estimated GFR < 15 mL/min/1.73m2 Glucose 87 60 - 115 mg/dL [facility] Calcium 8.8 8.4 - 10.2 mg/dL [facility] Bilirubin, Total 0.3 0.0 - 1.0 mg/dL [facility] Aspartate Amino Transferase 29 5 - 31 U/L [facility] Alanine Aminotransferase 30 0 - 31 U/L [facility] Total Protein 7.3 6.5 - 8.0 g/dL [facility] Albumin Level 4.1 3.5 - 5.0 g/dL [facility] Alkaline Phosphatase 95 39 - 117 U/L [facility] Blood Venous blood specimen / Unknown 08/01/2025 8:41 AM EDT 08/01/2025 11:00 AM EDT us Dieter Name MD LAB BLOOD ORDERABLES Final Resul t [facility] [address] [place] [phone] * (ABNORMAL) Oxycodone Screen, Urine (07/11/2025 10:00 AM EDT) Oxycodone Urine Screen Positive( A) Not Detect ng/mL [facility] Comment:Oxycodone cut-off is 100 ng/mL.Positive results are unconfirmed and should not be used fornon-medical purposes. Urine 07/11/2025 10:0 0 AM EDT 07/11/2025 12:59 PM EDT Dieter Patterson MD LAB URINE ORDERABLES Final Resul t [facility] [address] [place] [phone] * POCT HGB A1C (04/12/2024 12:07 PM EDT) Hemoglobin A1C 5.3 4.0 - 6.0 % Blood 04/12/2024 12:0 7 PM EDT Mayelin Zamarripa MD POINT OF CARE DAISY T ENTER/EDIT ORDERABLES Final Result * BI Mammogram Screening Tomosynthesis Bilateral (03/07/2024 3:30 PM EDT) Anatomical Region Laterality Modality Breast Bilateral Mammography 03/07/2024 3:30 PM EDT Narrative 03/13/2024 9:03 PM EDT [address] [place] [address] Mammography Report Signed Patient: Audrey Cintron MR#: [id number] : 1960 Acct:[id number] Age/Sex: 63 / F ADM Date: 03/07/24 Loc: HO.MAMMO Attending Dr: Dieter Patterson MD Ordering Physician: Dieter Patterson MD Results: 1Negative Date of Service: 03/07/24 Follow Up: 1 Year From Orig inal Mammogram Procedure(s): MM tomosynthesis screening BI Accession Number(s): [id number] cc: Dieter Patterson MD EXAMINATION: MM SCREENING [...] in OV> 03/13/24 2100 DD/ 1530 TD/TT: Servicer Coin Machines: Procedure Note Donotuseinterpreter, Image - [facility] [address] [place] [address] Mammography Report Signed Patient: Audrey Cintron MMR#: [id number] : 1960cct:[id number] Age/Sex: 63 / FADM Date: 03/07/24 Loc: [facility] Attending Dr: Dieter Patterson MD Ordering Physician: Dieter Patterson MDResults: 1Negative Date of Service: 03/07/24Follow Up: 1 Year From Orig inal Mammogram Procedure(s): MM tomosynthesis screening BI Accession Number(s): [id number] cc: Dieter Patterson MD EXAMINATION: MM SCREENING [...] in OV> 03/13/24 2100 DD/ 1530 TD/TT: Servicer [employer] Machines: Dieter Patterson MD Dionne BI PROCEDURES Edited Result - Final * THINPREP TIS PAP AND HPV mRNA E6/E7 WITH REFLEX TO HPV 16,18/45 (06/04/2022 9:57 AM EDT) Clinical Information: None given [facility] COMMENT SEE COMMENT [facility]OUND[facility] ON [...] has been evaluated with computer assisted technology. [facility] Cytotechnologis t: SEE COMMENT [facility] Comment: [facility], CT(ASCP) CT screening location: [place] [address] HPV nRNA E6/E7 Not Detected Not Detected [facility] Comment: Methodology: Employee Counselor-Mediated Amplification This assay detects E6/E7 viral messenger RNA (mRNA) from 14 high-risk HPV types (16,18,31,33,35,39,45,51,52,56,58,59,66,68). Cervical sources are required for HPV testing. If a vaginal source from a patient who has had a total hysterectomy with removal of cervix was submitted, please contact the testing laboratory for alternative testing options. For additional information, please refer to http://education.Shoutfit/faq/QTJ717j4 (This link if provided for information/ educational purposes only.) Interpretation/ Result: Negative for intraepithelial lesion or malignancy. [facility] LMP: 43 [facility] Prev. BX: NONE GIVEN [facility] Prev. PAP: 09/2018 NICL NEG FO [facility] SOURCE: None given [facility] Statement Of Adequacy: SEE COMMENT [facility] Comment: Satisfactory for evaluation. Endocervical/transformation zone component present. 06/04/2022 9:57 AM EDT Ashwini Novoa CNM LAB PATHOLOGY ORDERABLES Final Result [facility] [address] * Colonoscopy (06/05/2021 10:43 AM EDT) Colonoscopy Normal Normal Historical Provider HEALTH MAINTENANCE Edited Result - Final from Last 3 Months or Most Recently Relevant to Health Maintenance Insurance C3 Care Teams Dumpster Operator Relationship Specialty Start Date End Date Name, MD Dieter [address] [place] [address] PCP - General Family Medicine 05/22/16
--- OUTSIDE RECORDS SUMMARY | 2025-10-10 17:42 | XMS_ITS | Encounter Summary ---
Author Organization [employer] Address [address] [facility] [address] [place] [address] Care Team Providers Care Tool Analyst Name Role Phone Name, Dieter HERNANDEZ Primary Care Provider [phone] Reason for Visit * Reason Comments Med Refill Encounter Details Date Type Department Care Team (Late st Contact Info) Description 03/04/2024 Refill [facility] [address] [place], [place] [phone] Kristine Mondragon MD [address] [place] [address] Type 2 diabetes mellitus with obesity ([facility]/HCC) ([facility]) Social History Tobacco Use Types [...] Description 01/09/2026 9:45 AM EST Office Visit [facility] [address] [place] [address] documented as of this encounter Goals Goal [...] documented as of this encounter Care Teams Tool Analyst Relationship Specialty Start Date End Date Name, MD Dieter [address] [place] [address] PCP - General Family Medicine 05/22/16 documented as of this encounter
--- OUTSIDE RECORDS SUMMARY | 2025-10-10 17:42 | XMS_ITS | Encounter Summary ---
Author Organization [employer] Address [address] [facility] 7t [place] [address] Care Team Providers Care Ice Cream Shop Associate Name Role Phone Name, Dieter HERNANDEZ Primary Care Provider [phone] Reason for Visit * Reason Comments Med Refill Encounter Details Date Type Department Care Team ([facility] st Contact Info) Description 09/05/2025 Refill [facility] [address] [place] [address] Name, MD Dieter [address] [place], [place] [phone] Chronic pain syndrome Social History Tobacco Use [...] Description 01/09/2026 9:45 AM EST Office Visit [facility] [address] [place] [address] documented as of this encounter Goals Goal [...] documented as of this encounter Care Teams Ice Cream Shop Associate Relationship Specialty Start Date End Date Name, MD Dieter [address] [place] [address] PCP - General Family Medicine 05/22/16 documented as of this encounter
--- OUTSIDE RECORDS SUMMARY | 2025-10-10 17:42 | XMS_ITS | Encounter Summary ---
Author Organization [employer] Address [address] [place] [address] 7 [place] [address] Care Team Providers Care Receptionist Telephone Operator Name Role Phone Name, Dieter HERNANDEZ Primary Care Provider [phone] Encounter Details Date Type Department Care Team ([facility] st Contact Info) Description 08/12/2024 Orders Only [facility] [address] [place], [place] [phone] Desirae Jacobson MD [address] [place] [address] Sinus disease (Primary Dx) Social History Tobacco [...] Description 01/09/2026 9:45 AM EST Office Visit [facility] [address] [place] [address] documented as of this encounter Goals Goal [...] documented as of this encounter Care Teams Receptionist Telephone Operator Relationship Specialty Start Date End Date Name, MD Dieter [address] [place] [address] PCP - General Family Medicine 05/22/16 documented as of this encounter
--- OUTSIDE RECORDS SUMMARY | 2025-10-10 17:42 | XMS_ITS | Encounter Summary ---
Author Organization [employer] Address [address] [place] [address] 7 [place] [address] Care Team Providers Care Clinical Nursing Instructor Name Role Phone Name, Dieter HERNANDEZ Primary Care Provider [phone] Reason for Visit * Reason Onset Date Comments Referral to [facility] 12/12/2022 [facility] Encounter Details Date Type Department Care Team (Late st Contact Info) Description 12/12/[address] [phone] Name, MD Dieter [address] [place] [address] Referral to [facility] ([facility]) Social History Tobacco Use Types [...] 12/26/2022 9:25 AM EST Pt just had TRANSFERRER renewal. Pt would like referral to [facility] documented in this encounter Plan of Treatment Upcoming Encounters Date Type Department Care Team (Late st Contact Info) Description 01/09/2026 9:45 AM EST Office Visit [address] [address] documented as of this encounter Visit Diagnoses Not on filedocumented in this encounter Care Teams Clinical Nursing Instructor Relationship Specialty Start Date End Date Name, MD Dieter [address] [place] [address] PCP - General Family Medicine 05/22/16 documented as of this encounter
--- OUTSIDE RECORDS SUMMARY | 2025-10-10 17:42 | XMS_ITS | Encounter Summary ---
Author Organization [employer] Address [address] [place] [address] 7t [place] [address] Care Team Providers Care Lever Miller Name Role Phone Name, Dieter HERNANDEZ Primary Care Provider [phone] Encounter Details Date Type Department Care Team ([facility] Contact Info) Description 05/01/2023 Abstract [facility] MEDICINE [address] [place] [address] [phone] Name, MD Dieter [address] [place] [address] [phone] Social History Tobacco Use Types Packs/Day Years [...] Description 01/09/2026 9:45 AM EST Office Visit [facility] [address] [place] [address] [phone] documented as of this encounter Procedures Procedure Name Priority Date/Time Associated Diagnosis Comments HM COLONOSCOPY Routine 06/05/2021 10:43 AM EDT documented in this encounter Results * Hm Colonoscopy (06/05/2021 10:43 AM EDT) Colonoscopy Normal Normal us Historical Provider HEALTH MAINTENANCE Edited Result - Final documented in this encounter Visit Diagnoses Not on filedocumented in this encounter Care Teams Lever Miller Relationship Specialty Start Date End Date Name, MD Dieter [address] [place] [address] PCP - General Family Medicine 05/22/16 documented as of this encounter
--- OUTSIDE RECORDS SUMMARY | 2025-10-10 17:42 | XMS_ITS | Encounter Summary ---
Author Organization [employer] Address [address] [facility] 7 [place] [address] Care Team Providers Care Automobile Body Repair Chief Name Role Phone Name, Dieter HERNANDEZ Primary Care Provider [phone] Reason for Visit * Reason Onset Date Comments Appointment Request 09/05/2025 Encounter Details Date Type Department Care Team ([facility] st Contact Info) Description 09/05/2025 Telephone [facility] MEDICINE [address] [place] [address] Name, MD Dieter [address] [place] [address] Appointment Request Social History Tobacco Use Types Packs/Day Years [...] encounter Miscellaneous Notes * Telephone Encounter - Dieter Quintana - 09/05/2025 3:19 PM EDT TC from pt requesting to be rescheduled for DERM visit . Blood Bank Laboratory Technician informed patient that DERM appointments are very limited and may not have availability for another month Contact pt at [phone] documented in this encounter Plan of Treatment Upcoming Encounters Date Type Department Care Team (Late st Contact Info) Description 01/09/2026 9:45 AM EST Office Visit [facility] [address] [place] [address] documented as of this encounter Goals Goal Patient Goal Type Associated Problems Recent Progress Patient-Stated? Author Blood Pressure < 140/90 Blood Pressure 122/68( 025 11:54 AM EDT) No Piers-Gambl e, Cici, PharmD documented as of this encounter Visit Diagnoses Not on filedocumented in this encounter Additional Health Concerns Assessment Noted Time PHQ-9 Depression Total Score: 7 03/21/20 25 11:34 AM EDT documented as of this encounter Care Teams Automobile Body Repair Chief Relationship Specialty Start Date End Date Name, MD Dieter [address] [place] [address] PCP - General Family Medicine 05/22/16 documented as of this encounter
--- OUTSIDE RECORDS SUMMARY | 2025-10-10 17:42 | XMS_ITS | Encounter Summary ---
Author Organization [employer] Address [address] [facility] 7t [place] [address] Care Team Providers Care Poker Manager Name Role Phone Name, Dieter HERNANDEZ Primary Care Provider [phone] Reason for Visit * Reason Onset Date Comments Medication Question 12/11/2023 Encounter Details Date Type Department Care Team ([facility] st Contact Info) Description 12/11/2023 Telephone [facility] MEDICINE [address] [place] [address] Name, MD Dieter [address] [place] [address] Medication Question Social History Tobacco Use Types [...] T?C to pt. For below message through [employer] id - [id number] pt. Is all set , No question right now. Advised to give call to [facility] if any question or concerns. * Telephone Encounter - Maryan Stewart - 12/11/2023 11:53 AM EST Tc from pt returning nurse call. Please contact pt at [phone] (German) * Telephone Encounter - Ana María Godoy RN - 12/11/2023 10:47 AM EST T/C to [phone] for below message, No answer. LVM to call back on [phone]. * Telephone Encounter - Guero Da Silva - 12/11/2023 10:21 AM EST Tc from pt stating Name changed medication oxyCODONE (Roxicodone) 5 MG immediate release tablet to Percocet 5mg. If any questions please contact pt at [phone]. documented in this encounter Plan of Treatment Upcoming Encounters Date Type Department Care Team (Late st Contact Info) Description 01/09/2026 9:45 AM EST Office Visit [facility]INE [address] [place] [address] documented as of this encounter Goals Goal [...] documented as of this encounter Care Teams Poker Manager Relationship Specialty Start Date End Date Name, MD Dieter [address] [facility] [place] [address] PCP - General Family Medicine 05/22/16 documented as of this encounter
--- OUTSIDE RECORDS SUMMARY | 2025-10-10 17:42 | XMS_ITS | Encounter Summary ---
Author Organization [employer] Address [address] [facility] 7t [place] [address] Care Team Providers Care Lehr Operator Name Role Phone Name, Dieter HERNANDEZ Primary Care Provider [phone] Encounter Details Date Type Department Care Team ([facility] Contact Info) Description 05/22/2025 Telephone [facility] MED [facility] PEDS [address] [place], [place] [phone] Name, MD Dieter [address] [place] [address] Social History Tobacco Use Types Packs/Day Years [...] Description 01/09/2026 9:45 AM EST Office Visit [facility] MED[facility]INE [address] [place] [address] documented as of this encounter Goals Goal Patient Goal Type Associated Problems Recent Progress Patient-Stated? Author Blood Pressure < 140/90 Blood Pressure 122/68( 025 11:54 AM EDT) No Piers-GambCici mayorga, PharmD documented as of this encounter Visit Diagnoses Not on filedocumented in this encounter Additional Health Concerns Assessment Noted Time PHQ-9 Depression Total Score: 7 03/21/20 25 11:34 AM EDT documented as of this encounter Care Teams Lehr Operator Relationship Specialty Start Date End Date Name, MD Dieter [address] [place] [address] PCP - General Family Medicine 05/22/16 documented as of this encounter
--- OUTSIDE RECORDS SUMMARY | 2025-10-10 17:42 | XMS_ITS | Encounter Summary ---
Author Organization [employer] Address [address] [facility] 7t [place] [address] Care Team Providers Care Shot Blaster Name Role Phone Name, Dieter HERNANDEZ Primary Care Provider [phone] Encounter Details Date Type Department Care Team (Latest Contact Info) Description 08/18/2025 Results Follow-Up [facility] MEDICINE [address] [place], [place] [phone] Name, MD Dieter [address] [place] [address] TSH W/Reflex to FT4, Comprehensive Metabolic Panel, Lipid Panel, Standard Social History Tobacco Use Types Packs/Day Years [...] Description 01/09/2026 9:45 AM EST Office Visit [facility]INE [address] [place] [address] documented as of this encounter Goals Goal [...] documented as of this encounter Care Teams Shot Blaster Relationship Specialty Start Date End Date Name, MD Dieter [address] [place] [address] PCP - General Family Medicine 05/22/16 documented as of this encounter
--- OUTSIDE RECORDS SUMMARY | 2025-10-10 17:42 | XMS_ITS | Encounter Summary ---
Author Organization [employer] Address [address] [place] [address] 7 [place] [address] Care Team Providers Care Production Posting Clerk Name Role Phone Name, Dieter HERNANDEZ Primary Care Provider [phone] Reason for Visit * Reason Comments Med Refill Encounter Details Date Type Department Care Team ([facility] Contact Info) Description 02/03/2023 Refill [facility] [address] [place] [address] [phone] Name, MD Dieter [address] [place] [address] [phone] Hypertension, unspecified type Social History Tobacco Use [...] Description 01/09/2026 9:45 AM EST Office Visit [facility] [address] [place] [address] [phone] documented as of this encounter Visit Diagnoses Diagnosis Hypertension, unspecified type documented in this encounter Care Teams Production Posting Clerk Relationship Specialty Start Date End Date Name, MD Dieter [address] [place] [address] PCP - General Family Medicine 05/22/16 documented as of this encounter
--- OUTSIDE RECORDS SUMMARY | 2025-10-10 17:42 | XMS_ITS | Encounter Summary ---
Author Organization [employer] Address [address] [facility] 7t [place] [address] Care Team Providers Care Icing And Glaze Maker Name Role Phone Name, Dieter HERNANDEZ Primary Care Provider Reason for Visit * Reason Onset Date Comments Abnormal UTOX 10/10/2025 Encounter Details Date Type Department Care Team ([facility] st Contact Info) Description 10/10/2025 Telephone [facility] MEDICINE [address] [place] [address] Concepcion Thompson RN Abnormal UTOX Social History Tobacco Use Types Packs/Day Years [...] t he electric, gas, oil or water [employer] threatened to shut off services in your [...] Telephone Encounter - Concepcion Thompson RN - 10/10/2025 10:07 AM EST Pt attended chronic pain group today Pt reports last oxycodone taken was 10/09/25. Last Clonazepam taken was greater than 72 hours ago. UTOX completed. Negative for all substances: AMP, BAR, BUP, BZO, MARTHA, FTY, MDMA, MET, MOP, MTD, OXY, PCP, TCA, THC. UTOX not as expected. UTOX sent out for OXY confirmation. documented in this encounter Plan of Treatment Upcoming Encounters Date Type Department Care Team (Late st Contact Info) Description 01/09/2026 9:45 AM EST Office Visit [facility] [address] [place] [address] documented as of this encounter Goals Goal Patient Goal Type Associated Problems Recent Progress Patient-Stated? Author Blood Pressure < 140/90 Blood Pressure 122/68( 025 11:54 AM EDT) No Piers-Gambl eCici, PharmD documented as of this encounter Visit Diagnoses Not on filedocumented in this encounter Additional Health Concerns Assessment Noted Time PHQ-9 Depression Total Score: 7 03/21/20 25 11:34 AM EDT documented as of this encounter Care Teams Icing And Glaze Maker Relationship Specialty Start Date End Date Name, MD Dieter [address] [place] [address] PCP - General Family Medicine 05/22/16 documented as of this encounter
--- OUTSIDE RECORDS SUMMARY | 2025-10-10 17:42 | XMS_ITS | Encounter Summary ---
Author Organization [employer] Address [address] [facility] 7t [place] [address] Care Team Providers Care Auto Body Repair Teacher Name Role Phone Name, Dieter HERNANDEZ Primary Care Provider [phone] Reason for Visit * Reason Comments Med Refill Encounter Details Date Type Department Care Team (Late st Contact Info) Description 08/29/2024 Refill [facility] [address] [place] [address] Name, MD Dieter [address] [place], [place] [phone] Hypertension, unspecified type Social History Tobacco Use [...] Description 01/09/2026 9:45 AM EST Office Visit [facility] [address] [place] [address] documented as of this encounter Goals Goal [...] documented as of this encounter Care Teams Auto Body Repair Teacher Relationship Specialty Start Date End Date Name, MD Dieter [address] [place] [address] PCP - General Family Medicine 05/22/16 documented as of this encounter
--- OUTSIDE RECORDS SUMMARY | 2025-10-10 17:42 | XMS_ITS | Encounter Summary ---
Author Organization [employer] Address [address] [facility] 7t [place] [address] Care Team Providers Care Retrieval Specialist Name Role Phone Name, Dieter HERNANDEZ Primary Care Provider [phone] Reason for Visit * Reason Onset Date Comments Medication Question 09/28/2024 Prior Authorization 09/28/2024 Encounter Details Date Type Department Care Team ([facility] st Contact Info) Description 09/28/2024 Telephone [facility] MEDICINE [address] [place], [place] [phone] Name, MD Dieter [address] [place] [address] Medication Question; Prior Authorization Social History Tobacco [...] - 09/28/2024 8:49 AM EDT Tc from [facility] with [employer] PA dept calling in regards to PA for clonozepam. They received PA authorizing a month supply but she stated for longer duration they would need an adequate response 4weeks of therapy unless theres an adverse reaction or adequate response contouring medication for all anti depressants. [place] [phone]. documented in this encounter Plan of Treatment Upcoming Encounters Date Type Department Care Team ([facility] st Contact Info) Description 01/09/2026 9:45 AM EST Office Visit [facility] MEDICINE [address] [place] [address] documented as of this encounter Goals Goal [...] documented as of this encounter Care Teams Retrieval Specialist Relationship Specialty Start Date End Date Name, MD Dieter [address] [place] [address] PCP - General Family Medicine 05/22/16 documented as of this encounter
== END 2025-10-10 17:39 | disposition home or self-care (01) ==
LOC: HO.HHCLNP 17:38
PROVIDERS: Visit Provider Registered Nurse
DX: G89.29 Other chronic pain (principal); M54.50 Low back pain, unspecified
CPT/HCPCS: 80307